=== PATIENT | female | born 1965 | race Caucasian/White ===

== ENCOUNTER 2016-12-10 16:30 | Emergency (ER) | payer OTHER ==
[2016-12-10] MEDS ORDERED: ALTEPLASE 2 MG VIAL IVP ONE (17:00)
[2016-12-10 17:58] LABS: ADD DIFF? YES; ADD MORPH? NO; ATYPICAL LYMPHOCYTE FLAG 0 (0-99); FRAGMENT RBC FLAG 0 (0-99); HEMATOCRIT 34.1 % (38.0-47.0); HEMOGLOBIN 11.1 g/dL (12.6-16.3); LEFT SHIFT FLG 10 (0-99); LIPEMIA HEMOLYSIS FLAG 80 (0-99); MEAN CELL HEMOGLOBIN 28.9 pg (27.9-34.1); MEAN CELL HEMOGLOBIN CONCENTR. 32.6 g/dL (32.4-36.7); MEAN CELL VOLUME 88.8 fL (81.5-99.8); MEAN PLATELET VOLUME 10.4 fL (8.7-11.7); PLATELET CLUMPS FLAG 10 (0-99); PLATELET COUNT 164 10^3/uL (150-400); RED BLOOD CELL COUNT 3.84 10^6/uL (4.18-5.33); RED CELL DISTRIBUTION WIDTH 18.8 % (11.5-15.2)
[2016-12-10] MEDS ORDERED: HYDROmorphONE/DILAUDID 1 MG/ML INJ ONE (18:07)
[2016-12-10 18:08] LABS: ADD SCAN? NO; ANION GAP 12 mEq/L (8-16); CALCIUM 8.4 mg/dL (8.5-10.4); CARBON DIOXIDE 24 mEq/l (22-31); CHLORIDE 100 mEq/L (97-110); CREATININE 0.7 mg/dL (0.6-1.0); GLOMERULAR FILTRATION RATE > 60; GLUCOSE 139 mg/dL (70-100); POTASSIUM 3.5 mEq/L (3.5-5.2); SODIUM 136 mEq/L (134-144)
[2016-12-10] MEDS ORDERED: IOPAMIDOL (ISOVUE 370) 100 ML BTL IV ONE (18:15)
[2016-12-10] MEDS ORDERED: NS 1,000 ML IV ONE (18:20)
[2016-12-10] MEDS ORDERED: HYDROmorphONE/DILAUDID 1 MG/ML INJ IVP ONE (18:20)
[2016-12-10 18:55] LABS: PLATELET ESTIMATE ADEQUATE (ADEQ)
--- NOTE | 2016-12-10 19:05 | EDPHY ---
H & P Smoking Status: Never smoked Time Seen by Provider: 12/10/16 16:30 HPI/ROS: CHIEF COMPLAINT: Abdominal pain HISTORY OF PRESENT ILLNESS: 51-year-old female with a history of lung cancer presents to the emergency department with left upper quadrant abdominal pain that began this morning. Patient had chemo 2 days ago. She denies feeling short of breath however she does note pleuritic chest pain in the left side of her chest and left upper abdomen with deep breathing. Denies neck or back pain. Denies any reported trauma. She has known lung cancer with metastasis to the pancreas and kidney. REVIEW OF SYSTEMS: Constitutional: No fever, no chills. Eyes: No double or blurry vision. ENT: No sore throat. Respiratory: No cough, no shortness of breath. Cardiac: No chest pain. Gastrointestinal: Abdominal pain as above. No vomiting or diarrhea Genitourinary: No dysuria. Musculoskeletal: No neck or back pain. Skin: No rashes. Neurological: No headache. (Vanessa Seymour) Past Medical/Surgical History: Small cell lung cancer diagnosed September of 2015 (Vanessa Seymour) Social History: and lives in [place] (Vanessa Seymour) Physical Exam: General Appearance: Alert, no distress. 91% on room air. Temp 37.2 Eyes: Pupils equal and round. Extraocular motions are all intact. ENT: Mouth: Mucous membranes moist. Respiratory: No wheezing, rhonchi, or rales, lungs are clear to auscultation. Port present in the right anterior aspect of the chest in apex. Cardiovascular: Regular rate and rhythm. Gastrointestinal: The abdomen is soft. She has tenderness with palpation in the left upper quadrant. Spleen feels enlarged. She also has some mild left anterior lower rib discomfort with palpation. Mild epigastric pain with palpation. No CVA tenderness bilaterally. Neurological: Alert and oriented x 3, cranial nerves II through XII grossly intact Skin: Warm and dry, no rashes. Musculoskeletal: Nontender to palpate along the cervical, thoracic or lumbar spine. Neck is supple. Extremities: Full range of motion and no peripheral edema. Psychiatric: Patient is oriented X 3, there is no agitation. (Vanessa Seymour) Constitutional: Initial Vital Signs Temperature (C) 37.2 C 12/10/16 16:35 Heart Rate 67 12/10/16 16:35 Respiratory Rate 18 12/10/16 16:35 Blood Pressure 141/101 H 12/10/16 16:35 O2 Sat (%) 91 L 12/10/16 16:35 O2 Delivery Mode Room Air O2 (L/minute) 2 Allergies/Adverse Reactions: Penicillins Allergy (Verified 12/07/15 17:30) Hives Sulfa (Sulfonamide Antibiotics) Allergy (Verified 12/07/15 17:30) Hives Home Medications: Medication Instructions Recorded Azithromycin [Zithromax] 250 mg PO DAILY #4 tab 02/01/15 Calcium Carbonate 1 tab PO BID 12/03/15 Dexamethasone 4 mg PO BID 12/03/15 Folic Acid 1 mg PO DAILY 12/03/15 Lorazepam 1 mg SL Q6HRS PRN 12/03/15 Multivitamin 1 tab PO DAILY 12/03/15 Ondansetron 4 mg SL Q8HRS PRN 12/03/15 Prochlorperazine Maleate 10 mg PO Q6HRS PRN 12/03/15 EPINEPHRINE [EPIPEN] 0.3 mg IM ONCE #2 syr 12/07/15 predniSONE 60 mg PO DAILY #9 tab 12/07/15 Medical Decision Making ED Course/Re-evaluation: 51-year-old female with a history of small cell lung cancer presents to the emergency department with left upper quadrant abdominal pain and pleuritic chest pain. I was concerned about possible pulmonary embolism as well as further evaluation of her left upper quadrant abdominal pain and palpated spleen on exam. CT pulmonary angiogram and CT scan of the abdomen and pelvis are pending. Laboratory studies reveal elevated white blood cell count of 32,000. (Vanessa Seymour) I assumed care primarily of this patient at 7:00 p.m.. We are waiting results of her CT scans. Please see note by physician community assistant Vanessa Garsia for further details. 8:50 p.m., patient re-evaluated. She is sitting upright on the gurney talking to her friend. She appears comfortable. I discussed results of CT scans as noted above and specifically the new findings which include probable metastasis to the kidneys as well as inflammatory changes to the duodenum and the pancreas. I discussed admission with her. She is not sure she wants to do this. She is going to talk this over with her friend. 9:15 p.m., patient re-evaluated. She appears comfortable. Urinalysis dip was negative for infection. She has been afebrile. I again discussed admission. The patient does not want to do this. She is asking to be discharged. She will follow up with her oncologist, Dr. Mckeon on Monday. She lives near the hospital. Explained she needed a very low threshold to return to our emergency department for any concerns especially worsening pain, fever, vomiting. She stated that she could easily return if needed. Her friend who is with her endorses this plan. I reviewed follow-up with her. All of her questions were answered. Results of all of her diagnostic tests were discussed. She was discharged in good condition with her friend. (Aaron Jacob) Differential Diagnosis: Including but not limited to metastatic carcinoma, pulmonary embolism, pulmonary infarction, sepsis, bowel obstruction (Vanessa Seymour) Care Turn Over: Care will be turned over to Dr. Aaron Jacob at 7:15 p.m. (Vanessa Seymour) - Data Points Laboratory Results: Laboratory Results 12/10/16 17:50 12/10/16 17:50 12/10/16 17:50 Smear Review By Darrian SHARMA MD Medications Given: Discontinued Medications Alteplase, Recombinant (Cathflo Activase) 2 mg IVP EDNOW ONE Stop: 12/10/16 17:01 Last Admin: 12/10/16 17:12 Dose: 2 mg Hydromorphone HCl (Dilaudid) 0.5 mg IVP EDNOW ONE Stop: 12/10/16 18:21 Last Admin: 12/10/16 18:21 Dose: 0.5 mg Sodium Chloride (Ns) 1,000 mls @ 0 mls/hr IV EDNOW ONE; TKO PRN Reason: Protocol Stop: 12/10/16 18:21 Last Admin: 12/10/16 18:21 Dose: 1,000 mls Departure - Departure Disposition: Home, Routine, Self-Care Clinical Impression: Leukocytosis, Pancreatitis, Duodenitis, Metastatic lung cancer (metastasis from lung to other site) Condition: Good Instructions: Pancreatitis (ED), Abdominal Pain (ED), Duodenitis (ED) Additional Instructions: Read and follow provided instructions. Follow-up with Dr. Mckeon, without fail on Monday for re-evaluation. They will have access to all of the tests that we did here. Continue taking your medication as prescribed. Return to the emergency department immediately as discussed for fever, worsening or uncontrolled pain, vomiting or other serious concerns. Referrals: Faby Mckeon MD [Medical Doctor] - As per Instructions
[2016-12-10 19:10] VITALS: RESP 16
[2016-12-10 19:14] LABS: ALBUMIN 3.2 g/dL (3.5-5.0); BILIRUBIN,TOTAL 0.6 mg/dL (0.1-1.4); BILIRUBIN-CONJUGATED 0.4 mg/dL (0.0-0.5); BILIRUBIN-UNCONJUGATED 0.2 mg/dL (0.0-1.1); TOTAL PROTEIN 5.8 g/dL (6.3-8.2)
[2016-12-10 21:24] VITALS: BP 111/74; PULSE 84; TEMP 98.6; O2SAT 92
== END 2016-12-10 21:40 | disposition home or self-care (01) ==
LOC: EDUNIT#
DX: K85.90 Acute pancreatitis without necrosis or infection, unspecified (principal); K29.80 Duodenitis without bleeding; C78.89 Secondary malignant neoplasm of other digestive organs; C79.00 Secondary malignant neoplasm of unspecified kidney and renal pelvis; C34.90 Malignant neoplasm of unspecified part of unspecified bronchus or lung
CPT/HCPCS: 82947-QW; 96374; J1170; J2997; Q9967

== ENCOUNTER 2016-12-14 08:32 | Inpatient (IN) | payer OTHER ==
[2016-12-14] MEDS ORDERED: NS 1,000 ML IV ONE (08:51)
--- NOTE | 2016-12-14 08:54 | EDPHY ---
HPI/HX/ROS/PE/MDM Narrative: CHIEF COMPLAINT: Blood in vomit HPI: The patient is a 51 y/o female with a history of metastatic lung cancer, who complains of blood in her vomit. She was seen in this ED on 12/10/16, 4 days ago, for abdominal and back pain as well as diarrhea, but refused admission. Her pain has decreased since that visit, but last night she developed severe vomiting, and vomited 7-8 times throughout the night. She noticed a brown coffee color in her vomit, but it was not the consistency of coffee grounds. Denies chest pain, dysuria, or other pertinent symptoms. Prior medical records reviewed including ED visit on 12/10/[address] Jacob. REVIEW OF SYSTEMS: Aside from elements discussed in the HPI, a comprehensive 10-point review of systems was reviewed and is negative. PMH: Metastatic small cell lung cancer diagnosed September 2015 SOCIAL HISTORY: Lives in [place] Friend at bedside PHYSICAL EXAM: General:Patient is alert, in no acute distress. She appears chronically ill. ENT:Eyes are normal to inspection. ENT inspection normal. Neck: Normal inspection. Full range of motion. Respiratory:No respiratory distress. Breath sounds normal bilaterally. Cardiovascular: Port in right chest. Mild tachycardia. Normal rhythm. Strong peripheral pulses. Normal cap refill. Abdomen: Diffuse abdominal tenderness. There are no peritoneal signs. There are normal bowel sounds. Back: Normal to inspection. No tenderness to palpation. Skin: Normal color. No rash. Warm and dry. Extremities: Normal appearance. Full range of motion. Neuro: Oriented x3. Normal motor function. Normal sensory function. Portions of this note were transcribed by an ED scribe. I personally performed the history, physical exam, and medical decision making; and confirm the accuracy of the information in the transcribed note. ED Course: The patient is a 51 y/o female who presents with diffuse abdominal tenderness and coffee-colored vomit. She has metastatic lung cancer with metastasis to her pancreas. She was seen her on 12/10/16 for abdomen and back pain, but refused admission. She is willing to be admitted today. 0916: Spoke with hospitalist service, Dr. Lees accepts admission of this patient. MDM: This patient presents with severe abdominal pain and vomiting, in the setting of recent ED visit/imaging which revealed inflammation of pancreas and bowel. The patient is at elevated risk secondary to CA and chemo, and I am particularly concerned about what sounds like possible upper GI bleed. She requires admission to the hospital for further testing and symptomatic treatment. I see no signs of hemorrhagic shock, bowel obstruction, ACS, cholecystitis. - Data Points Imaging Results: Imaging Impressions Abdomen X-Ray 12/14/16 08:51 Impression: Non-obstructive bowel gas pattern. Imaging: Discussed imaging studies w/ call center support representative Radiologist, I viewed and interpreted images myself Laboratory Results: Laboratory Results 12/14/16 09:00 12/14/16 09:00 12/14/16 12/14/16 12/14/16 09:00 09:00 09:00 WBC 7.62 10^3/uL 10^3/uL (3.80-9.50) RBC 3.56 10^6/uL L 10^6/uL (4.18-5.33) Hgb 10.2 g/dL L g/dL (12.6-16.3) Hct 31.2 % L % (38.0-47.0) MCV 87.6 fL fL (81.5-99.8) MCH 28.7 pg pg (27.9-34.1) MCHC 32.7 g/dL g/dL (32.4-36.7) RDW 18.6 % H % (11.5-15.2) Plt Count 272 10^3/uL 10^3/uL (150-400) MPV 10.8 fL fL (8.7-11.7) Neut % (Auto) 78.6 % H % (39.3-74.2) Lymph % (Auto) 6.4 % L % (15.0-45.0) Churchill % (Auto) 10.8 % % (4.5-13.0) Eos % (Auto) 2.1 % % (0.6-7.6) Baso % (Auto) 0.4 % % (0.3-1.7) Nucleat RBC Rel Count 1.4 % H % (0.0-0.2) Absolute Neuts (auto) 5.99 10^3/uL 10^3/uL (1.70-6.50) Absolute Lymphs (auto) 0.49 10^3/uL L 10^3/uL (1.00-3.00) Absolute Monos (auto) 0.82 10^3/uL H 10^3/uL (0.30-0.80) Absolute Eos (auto) 0.16 10^3/uL 10^3/uL (0.03-0.40) Absolute Basos (auto) 0.03 10^3/uL 10^3/uL (0.02-0.10) Absolute Nucleated RBC 0.11 10^3/uL H 10^3/uL (0-0.01) Immature Gran % 1.7 % H % (0.0-1.1) Immature Gran # 0.13 10^3/uL H 10^3/uL (0.00-0.10) RBC/WBC/PLT Morphology NORMAL (NORMAL) Toxic Granulation PRESENT H Platelet Estimate ADEQUATE (ADEQ) Large Platelets PRESENT H Smear Review By Pending PT 22.6 SEC H SEC (12.0-15.0) INR 1.98 H (0.83-1.16) APTT 55.3 SEC H SEC (23.0-38.0) Sodium 131 mEq/L L mEq/L (134-144) Potassium 3.5 mEq/L mEq/L (3.5-5.2) Chloride 95 mEq/L L mEq/L (97-110) Carbon Dioxide 26 mEq/l mEq/l (22-31) Anion Gap 10 mEq/L mEq/L (8-16) BUN 9 mg/dL mg/dL (7-23) Creatinine 0.9 mg/dL mg/dL (0.6-1.0) Estimated GFR > 60 Glucose 92 mg/dL mg/dL (70-100) Calcium 8.7 mg/dL mg/dL (8.5-10.4) Total Bilirubin 1.0 mg/dL mg/dL (0.1-1.4) Conjugated Bilirubin 0.4 mg/dL mg/dL (0.0-0.5) Unconjugated Bilirubin 0.6 mg/dL mg/dL (0.0-1.1) AST 87 IU/L H IU/L (14-46) ALT 30 IU/L IU/L (9-52) Alkaline Phosphatase 153 IU/L H IU/L (38-126) Total Protein 5.9 g/dL L g/dL (6.3-8.2) Albumin 3.0 g/dL L g/dL (3.5-5.0) Lipase 1272 IU/L H IU/L (23-300) Medications Given: Discontinued Medications Sodium Chloride (Ns) 1,000 mls @ 0 mls/hr IV EDNOW ONE; Wide Open PRN Reason: Protocol Stop: 12/14/16 08:52 Last Admin: 12/14/16 09:03 Dose: 1,000 mls Morphine Sulfate (Morphine) 2 mg IVP EDNOW ONE Stop: 12/14/16 09:05 Last Admin: 12/14/16 09:12 Dose: 2 mg General Initial Vital Signs: Initial Vital Signs Temperature (C) 36.9 C 12/14/16 08:33 Heart Rate 118 H 12/14/16 08:33 Respiratory Rate 16 12/14/16 08:33 Blood Pressure 117/88 H 12/14/16 08:33 O2 Sat (%) 95 12/14/16 08:33 O2 Delivery Mode Room Air Allergies/Adverse Reactions: Penicillins Allergy (Verified 12/07/15 17:30) Hives Sulfa (Sulfonamide Antibiotics) Allergy (Verified 12/07/15 17:30) Hives EBONY SEEDS Allergy (Uncoded 12/14/16 08:38) Home Medications: Medication Instructions Recorded Acetaminophen [Tylenol 325mg (*)] 325 mg PO DAILY PRN 12/14/16 Cholecalciferol Vit D3 [Vitamin D3 1,000 units PO DAILY 12/14/16 (*)] Cyclobenzaprine [Flexeril 10 MG 10 mg PO TID PRN 12/14/16 (*)] Herbals/Supplements -Info Only 1 ea PO DAILY 12/14/16 Potassium Chloride [Klor-Con] 20 meq PO BID 12/14/16 oxyCODONE IR [Oxycodone Ir (*)] 5 mg PO Q6HRS PRN 12/14/16 Departure - Departure Disposition: [facility] Clinical Impression: Abdominal pain Qualifiers: Abdominal location: generalized Qualified Code(s): R10.84 - Generalized abdominal pain Vomiting Qualifiers: Vomiting type: unspecified Vomiting Intractability: non-intractable Nausea presence: unspecified Qualified Code(s): R11.10 - Vomiting, unspecified Metastatic lung cancer (metastasis from lung to other site) Qualifiers: Laterality: unspecified laterality Qualified Code(s): C34.90 - Malignant neoplasm of unspecified part of unspecified bronchus or lung Condition: Fair Report Scribed for: Lambert Clay Report Scribed by: Rafia Harkins Date of Report: 12/14/16 Time of Report: 08:51
[2016-12-14 09:07] LABS: % IMMATURE GRANULYOCYTES 1.7 % (0.0-1.1); ABSOLUTE IMMATURE GRANULOCYTES 0.13 10^3/uL (0.00-0.10); ABSOLUTE NRBC COUNT 0.11 10^3/uL (0-0.01); ADD DIFF? NO; ADD MORPH? YES; ADD SCAN? YES; ATYPICAL LYMPHOCYTE FLAG 0 (0-99); FRAGMENT RBC FLAG 20 (0-99); HEMATOCRIT 31.2 % (38.0-47.0); HEMOGLOBIN 10.2 g/dL (12.6-16.3); LIPEMIA HEMOLYSIS FLAG 80 (0-99); MEAN CELL HEMOGLOBIN 28.7 pg (27.9-34.1); MEAN CELL HEMOGLOBIN CONCENTR. 32.7 g/dL (32.4-36.7); MEAN CELL VOLUME 87.6 fL (81.5-99.8); MEAN PLATELET VOLUME 10.8 fL (8.7-11.7); PLATELET CLUMPS FLAG 10 (0-99); PLATELET COUNT 272 10^3/uL (150-400); RED BLOOD CELL COUNT 3.56 10^6/uL (4.18-5.33); RED CELL DISTRIBUTION WIDTH 18.6 % (11.5-15.2)
[2016-12-14 09:12] LABS: LEFT SHIFT FLG 300 (0-99); NRBC-AUTO% 1.4 % (0.0-0.2)
[2016-12-14 09:17] LABS: INR 1.98 (0.83-1.16); PROTIME(PATIENT) 22.6 SEC (12.0-15.0)
[2016-12-14 09:18] LABS: APTT 55.3 SEC (23.0-38.0)
[2016-12-14 09:28] LABS: ALANINE AMINOTRANSFERASE 30 IU/L (9-52); ALKALINE PHOSPHATASE 153 IU/L (38-126); ANION GAP 10 mEq/L (8-16); ASPARTATE AMINOTRANSFERASE 87 IU/L (14-46); BILIRUBIN-CONJUGATED 0.4 mg/dL (0.0-0.5); BILIRUBIN-UNCONJUGATED 0.6 mg/dL (0.0-1.1); CALCIUM 8.7 mg/dL (8.5-10.4); CARBON DIOXIDE 26 mEq/l (22-31); CHLORIDE 95 mEq/L (97-110); CREATININE 0.9 mg/dL (0.6-1.0); GLOMERULAR FILTRATION RATE > 60; GLUCOSE 92 mg/dL (70-100); POTASSIUM 3.5 mEq/L (3.5-5.2); SODIUM 131 mEq/L (134-144); TOTAL PROTEIN 5.9 g/dL (6.3-8.2)
[2016-12-14 09:42] LABS: SCAN NEGATIVE
[2016-12-14 09:45] LABS: PLATELET ESTIMATE ADEQUATE (ADEQ)
[2016-12-14 09:47] LABS: LARGE PLATELETS PRESENT
[2016-12-14 09:48] LABS: TOXIC GRANULATION PRESENT
[2016-12-14] MEDS ORDERED: CYCLOBENZAPRINE 10 MG TAB PO PRN (13:14)
[2016-12-14] MEDS ORDERED: ZOLPIDEM TARTRATE 5 MG TAB PO PRN (13:39)
[2016-12-14] MEDS ORDERED: PHYTONADIONE 10 MG in NS 50 ML IV ONE (13:49)
[2016-12-14] MEDS ORDERED: PHYTONADIONE 2.5 MG/2.5 ML ORAL UDL PO ONE ×2 (13:50→16:45)
[2016-12-14] MEDS: D5W 1/2 NS W/ 20 KCl/L 1,000 ML IV SCH (13:54)
[2016-12-14] MEDS ORDERED: PROPOFOL/EMULSION 500 MG/50 ML BOTTLE IV ONE (14:34)
[2016-12-14] MEDS ORDERED: LIDOCAINE 2% 5 ML SDV ONE (14:34)
--- NOTE | 2016-12-14 14:42 | GHP ---
[f rep st] HISTORY AND PHYSICAL DATE OF ADMISSION: 12/14/2016 CHIEF COMPLAINT: Nausea, vomiting with blood. HISTORY OF PRESENT ILLNESS: This is a 51-year-old female, diagnosed with lung cancer in May, started on treatment in June of 2015, and is followed by Dr. Mckeon as well as a lung cancer speci joannest at the [facility]. Presents to the hospital today with 6-7 episodes of bloody emesis that bega n last night. She states that she was initially passing what she describes as "red clumps" of clots that then progressed to black colored coffee-ground vomitus. She denies any NSAID use. This has nev er happened to her before. She has had really no appetite for the past few weeks. She has been eati ng very little. She denies any bloody stools or melena. The patient was seen in the emergency department on 12/10/2016, with abdominal pain that was radiatin g to her back. She was offered admission then but refused. She went home and took oxycodone and Fle xeril which initially seemed to help although they made her feel a little loopy. She felt better on Monday with decreased pain. On Monday, she had some bloating and tried milk of magnesia which caus ed some diarrhea. She has not had any bowel movements since using the laxatives. PAST MEDICAL HISTORY: Metastatic lung cancer diagnosed in May 2015 with metastases to the pancr eas and kidney. PAST SURGICAL HISTORY: Denies. MEDICATIONS: Refer to medication list in [facility]. ALLERGIES: No known drug allergies. SOCIAL HISTORY: She lives in [place], is single. She denies any alcohol, tobacco, or illicit drug use. FAMILY HISTORY: Significant for heart attack in her mom's side as well as inflammatory bowel disease . REVIEW OF SYSTEMS: Comprehensive 10-point review of systems was done and is negative, except for as mentioned in the HPI. PHYSICAL EXAMINATION: VITAL SIGNS: Blood pressure 126/103, pulse of 105, respiratory rate 16, O2 sa turation 98% on 2.5 L, temperature afebrile. GENERAL: No acute distress. HEAD: Normocephalic, atr aumatic. EYES: PERRLA. Sclerae anicteric. MOUTH: Moist mucous membranes. NECK: Supple. No lym phadenopathy. CARDIOVASCULAR: S1, S2, no JVD. No lower extremity edema. Tachycardic. LUNGS: Kirill ar to auscultation and percussion bilaterally. No wheezes, rales, or rhonchi. ABDOMEN: Soft. She does have some tenderness in the left upper quadrant. There is no guarding or rebound tenderness. N ormoactive bowel sounds. EXTREMITIES: No clubbing or cyanosis. NEURO: Cranial nerves 2-12 grossly intact. No focal motor or sensory deficits. SKIN: Clear, no rashes. DIAGNOSTICS: CT of the abdomen was reviewed that was done on 12/10/2016, that showed interval change s with haziness around the pancreatic tail as well as the 3rd and 4th portions of the duodenum is pos sible, small fluid collection in the 3rd portion the duodenum, renal metastatic lesions, stable confl uent masses within the liver predominantly in the right lobe with distal small bowel fluid-filled loo ps probably from ileus or enteritis. WBC 7.6, hemoglobin 10.2, hematocrit 31.2, platelets 272. INR 1.98. Sodium 131, potassium 3.5, chlo ride 95, CO2 of 26, BUN 9, creatinine 0.9, glucose 92, lipase was elevated at 1272, AST 87, ALT 30. ASSESSMENT/PLAN: This is a 51-year-old female undergoing chemotherapy for metastatic lung cancer. L ast treatment was 2 weeks ago. Presents with: 1. Nausea, vomiting with reported hematemesis and coffee-grounds emesis. Suspect underlying gastrit is since she has not been eating versus further worsening of her metastatic disease with erosion of t umor into her upper gastrointestinal tract. Plan: Currently, the patient is hemodynamically stable and not anemic. I did discuss the patient with Dr. Coker who will see the patient in consultation. We will start b.i.d. IV Protonix. 2. Coagulopathy likely due to underlying liver disease with liver metastases and possible vitamin K deficiency given her poor diet. Plan: Will supplement with vitamin K and monitor INR. 3. Pancreatic metastases with possible underlying chronic pancreatitis. Plan: Will treat champ millan for now. Currently, she is pain free. 4. Metastatic lung cancer. Plan: Dr. Mckeon, her oncologist, will be consulted. The patient requests to be full code status. /[id number]/MODL
[2016-12-14] MEDS ORDERED: MIDAZOLAM 2 MG/2 ML VIAL ONE (14:47)
[2016-12-14] MEDS ORDERED: ALBUTEROL 3 ML DEYVIAL IH PRN (14:59)
[2016-12-14] MEDS ORDERED: fentaNYL 100 MCG/2 ML INJ IVP PRN (14:59)
[2016-12-14] MEDS ORDERED: LR 500 ML IV PRN (14:59)
[2016-12-14] MEDS ORDERED: ACETAMINOPHEN 500 MG TAB PO PRN (14:59)
[2016-12-14] MEDS ORDERED: NALOXONE HCL 0.4 MG/ML INJ IVP PRN (14:59)
[2016-12-14] MEDS ORDERED: ONDANSETRON 4 MG/2 ML VIAL IVP PRN (14:59)
[2016-12-14] MEDS ORDERED: OXYCODONE/APAP 5/325 TAB PO PRN (14:59)
--- NOTE | 2016-12-14 15:15 | GIREPORT ---
[facility] Surgical Services - Endoscopy Department Patient Name: Adriana Anderson Procedure Date: 12/14/2016 2:27 PM Patient Type: Inpatient Attending / ER Physician: Perico Coker MD Procedure: Upper GI endoscopy Indications: Coffee-ground emesis, Hematemesis, Nausea with vomiting Providers: Perico Coker MD Medicines: Propofol per Anesthesia Complications: No immediate complications. Findings: The examined esophagus was normal. A small non-bleeding Lorie-Olsen tear was found @ [facility] One non-bleeding superficial gastric ulcer with no stigmata of bleeding was found on the greater curvature of the gastric antrum. The lesion was 9 mm in largest dimension. Biopsies were taken with a cold forceps for histology. The entire examined stomach was normal. Biopsies were taken with a cold forceps for histology and Helicobacter pylori testing. The duodenal bulb was normal. A mild extrinsic deformity was found in the second portion of the duodenum. (edema, ? narrowing) Estimated Blood Loss: Estimated blood loss: none. Post Op Diagnosis: - Normal esophagus. - Lorie-Olsen tear. - Non-bleeding gastric ulcer with no stigmata of bleeding. Biopsied. - Normal stomach. Biopsied. - Normal duodenal bulb. - Duodenal deformity. (edema, ? narrowing) Recommendation: - Await pathology results. - Clear liquid diet and can advance as tolerated. - Follow clinically and advance diet. CT report of tumor involment of the pancreatic tail with ? compression of duodenum. If still symptomatic after starting back on diet recommend SBFT. - Use Protonix (pantoprazole) 40 mg PO BID. - Thank you for allowing me to participate in the care of your patient. Attending Participation: I personally performed the entire procedure. Perico Coker MD Perico Coker MD 12/14/2016 3:15:24 PM Number of Addenda: 0 Note Initiated On: 12/14/2016 2:27 PM Total Procedure Duration Time 0 hours 6 minutes 25 seconds [email or web address]
--- NOTE | 2016-12-14 15:32 | GCON ---
[f rep st] CONSULTATION CONSULTATIVE NOTE REFERRING PHYSICIAN: Dr. Lees CHIEF COMPLAINT: Hematemesis. REASON FOR CONSULTATION: I have been asked to see this 51-year-old patient in consultation by Dr. Lees for hematemesis. HISTORY OF PRESENT ILLNESS: This 51-year-old woman has a history of metastatic lung cancer, who had finished a course of chemo about a week and a half ago. This past weekend, she was feeling unwell, had several episodes of vomiting. She vomited coffee-ground material and blood. She has had episodes of epistaxis with chemo in the past. She was hemodynamically stable with a normal hematocrit. She denies any passage of blood per rectum or black or tarry stool. She has no prior history of ulcer disease. She has had no history of NSAID use. I was asked to see the patient for further evaluation. PAST MEDICAL HISTORY: Remarkable for metastatic small cell lung cancer diagnosed in 2016. MEDICATIONS: Acetaminophen, vitamin D, Flexeril, Zofran, pantoprazole, potassium chloride, Phenergan, and Ambien. ALLERGIES: Penicillin and sulfa. FAMILY HISTORY: Negative as it pertains to the chief complaint. SOCIAL HISTORY: She is , lives in [place]. REVIEW OF SYSTEMS: Negative for 10 systems other than mentioned in HPI. PHYSICAL EXAM: VITAL SIGNS: 126/103, pulse 105, respiratory rate 16, 98% sat on 2.5 L nasal cannula, 36.9. Very pleasant woman in no acute distress. HEENT : Normocephalic, atraumatic. EOMI. NECK: Supple. No cervical adenopathy. No thyromegaly. Mucous membranes moist. LUNGS: Clear. CARDIAC: Normal S1, S2 without murmur. CHEST: There is a port in the right upper chest. ABDOMEN: No hepatosplenomegaly, nontender. Normal bowel sounds. EXTREMITIES: Without clubbing, cyanosis, edema. NEURO: Nonfocal. SKIN: Warm and dry. PSYCH: Alert and oriented x3 with normal affect. LABORATORY DATA: Hemoglobin of 10.2 with hematocrit 31.2. This is down from November when her hematocrit was 39.3. Platelets were 272,000. PT of 22.6, INR 1.98. Serum chemistry: Serum sodium 131, potassium 3.5, CO2 26, BUN of 9, creatinine 0.9. Abdominal x-ray: Normal gas pattern. Chest CT with stable lobulated mass in the superior segment of the right lower lobe and right hilar mass. Mass causes some narrowing of the right pulmonary artery segments and surrounds the right mainstem bronchus extending into the mediastinum. Stable bilateral small pulmonary nodules. Mild progression of a heterogeneous lytic lesion posterior 3rd left 3rd rib. No evidence of pulmonary embolus. Abdominal CT shows haziness in the pancreatic tail and to the mesentery, as well as the 3rd and 4th portions of the duodenum. Small fluid collection adjacent to the 3rd portion of the duodenum, increase in prominence in renal metastatic lesions. Stable large confluent masses within the liver predominantly involving the right lobe. Fluid-filled loops of distal small bowel and the pelvis with mild distention possibly from ileus or enteritis. IMPRESSION: A 51-year-old woman with metastatic small-cell carcinoma of the lung. The patient had chemotherapy Monday of last week. She developed some body aches and nausea, vomiting from chemotherapy. She had several episodes of retching with some hematemesis. Differential includes gastritis, Lorie-Olsen tear, most likely peptic ulcer disease. Patient also has had episodes of epistaxis and may have swallowed blood with associated emesis. RECOMMENDATIONS: 1. IV fluids, IV Protonix 40 mg q.12. 2. Proceed with diagnostic endoscopy. We will follow with you. /[id number]/MODL MTDD
--- NOTE | 2016-12-14 15:58 | POSTANESTH ---
Post Anesthetic Evaluation Cardiovascular Status: Normal, Stable Respiratory Status: Normal, Stable Level of Consciousness/Mental Status: Can Participate in Eval Pain Control: Adequate, Prn Tx Ordered Nausea/Vomiting Control: Adequate, Prn Tx Ordered Complications Possibly Related to Anesthesia: None Noted
--- NOTE | 2016-12-14 15:58 | PDANEPAE ---
ANE History of Present Illness vomiting blood ANE Past Medical History - Cardiovascular History Hx Hypertension: No Hx Arrhythmias: No Hx Chest Pain: No Hx Coronary Artery / Peripheral Vascular Disease: No Hx CHF / Valvular Disease: No Hx Palpitations: No - Pulmonary History Hx COPD: No Hx Asthma/Reactive Airway Disease: Yes Hx Recent Upper Respiratory Infection: No Hx Oxygen in Use at Home: No Hx Sleep Apnea: No Pulmonary History Comment: Stage IV lung cancer - Neurologic History Hx Cerebrovascular Accident: No Hx Seizures: No Hx Dementia: No - Endocrine History Hx Diabetes: No - Renal History Hx Renal Disorders: No - Liver History Hx Hepatic Disorders: Yes Hepatic History Comment: Liver metastases - Neurological & Psychiatric Hx Hx Neurological and Psychiatric Disorders: Yes Neurological / Psychiatric History Comment: Brain metastases - Cancer History Hx Cancer: Yes Cancer History Comment: Stage IV non-small cell lung cancer - Congenital Disorder History Hx Congenital Disorders: No - GI History Hx Gastrointestinal Disorders: No - Other Health History Other Health History: none - Chronic Pain History Chronic Pain: No - Surgical History Prior Surgeries: Lung biopsy, liver biopsy 06/16 ANE Review of Systems Review of systems is: negative Review of Systems: ANE Patient History - Allergies Allergies/Adverse Reactions: Penicillins Allergy (Verified 12/07/15 17:30) Hives Sulfa (Sulfonamide Antibiotics) Allergy (Verified 12/07/15 17:30) Hives EBONY SEEDS Allergy (Uncoded 12/14/16 08:38) - Home Medications Home medications: home medication list seen and reviewed Home Medications: Acetaminophen [Tylenol 325mg (*)] 325 mg PO DAILY PRN 12/14/16 [Last Taken Unknown] Cholecalciferol Vit D3 [Vitamin D3 (*)] 1,000 units PO DAILY 12/14/16 [Last Taken Unknown] Cyclobenzaprine [Flexeril 10 MG (*)] 10 mg PO TID PRN 12/14/16 [Last Taken 12/12 09:00] Herbals/Supplements -Info Only 1 ea PO DAILY 12/14/16 [Last Taken Unknown] Potassium Chloride [Klor-Con] 20 meq PO BID 12/14/16 [Last Taken 12/11/16 09:00] oxyCODONE IR [Oxycodone Ir (*)] 5 mg PO Q6HRS PRN 12/14/16 [Last Taken 12/12/16 09:00] - Smoking Hx Smoking Status: Never smoked - Family Anes Hx Family Hx Anesthesia Complications: None ANE Labs/Vital Signs - Labs Result Diagrams: 12/14/16 09:00 12/14/16 09:00 - Vital Signs Blood Pressure: 134/94 Heart Rate: 105 Respiratory Rate: 27 O2 Sat (%): 99 Height: 162.56 cm Weight: 64.6 kg ANE Physical Exam - Airway Neck exam: FROM Mallampati Score: Class 2 Mouth exam: normal dental/mouth exam - Pulmonary Pulmonary: no respiratory distress - Cardiovascular Cardiovascular: regular rate and rhythym ANE Anesthesia Plan Anesthesia Plan: GA with mask Urgent/Emergent Case: Phillip doherty completed preop but documented later for safe timely pt care
--- NOTE | 2016-12-14 16:15 | ASMTCMCOM ---
CM Note CM Note Notes: Pt has been admitted with vomitiing. She was seen in the ED 12/10 for similar sx. Hx metstatic small cell lung CA diagnosed 09/2015 and completed a round of chemo 1 1/2 weeks ago. S/p EGD. CM will follow for any d/c needs. Date Signed: 12/14/2016 04:14 PM Electronically Signed By:GUERRERO Kramer
[2016-12-14] MEDS: PANTOPRAZOLE SODIUM 40 MG in NS 100 ML IV SCH ×2 (16:23→21:07)
[2016-12-14] MEDS ORDERED: GADOBUTROL 10 ML VIAL IVP ONE (17:13)
[2016-12-14] MEDS: ACETAMINOPHEN 325 MG TAB PO PRN (21:07)
[2016-12-14] MEDS: POTASSIUM CL 20 MEQ PKT PO SCH (21:07)
--- NOTE | 2016-12-15 02:58 | GCON ---
[f rep st] CONSULTATION ONCOLOGY INITIAL VISIT DATE OF CONSULTATION: 12/14/2016 REASON FOR CONSULTATION: Evaluation and management of metastatic lung cancer, and I am the primary o ncologist. HISTORY OF PRESENT ILLNESS: The patient is a 51-year-old woman diagnosed in June 2015 with a stage IV non-small cell lung cancer. She was both EGFR and alk negative. She presented with metastasis to the lung, liver, and brain. She started on cisplatin pemetrexed with a partial response, then was o n maintenance pemetrexed through January 2016. She started to progress so she underwent whole-brain radiation in February 2016, and then decided to go to the [facility] to enter into a stud y. There she started on nivolumab in April 2016, and based on this study she had an adequate respo nse, ipilimumab was to be added. This was added in May and she was on both treatments through . She has showed signs of progression, so came off the study and had 1 dose of Phosplatin but stop ped due to pancreatitis. She was referred back for more standard therapy. Her brain MRI showed a go od response to the radiation, so I started her on docetaxel plus ramucirumab in September 2016. After the 1st 2 cycles restaging study showed stable to slight improvement. She received her 4th cycle of carlos motherapy on December 08. She has also had Neulasta support and the docetaxel dose was decreased. A t the time of the last treatment, she was having fatigue and some muscle aches and pains. She was us ing Tylenol and ibuprofen as needed for relief. Her appetite was decreased and mouth was sore, but s he did not have any fever or chills. She was also not having any nausea or vomiting. Currently, the patient is both undergoing an upper endoscopy and currently in recovery from this proc edure. Therefore information was provided by close friends, and also spoke to her sister on the phon e, all of which have accompanied the patient with her in the office and well known to me. They repor t that she has been having increasing problems with abdominal cramping and nausea. States that reall y has not eaten much over the last week. She was in the emergency room on December 10 complaining of shortness of breath and chest pain with deep breathing. CT angiogram was performed, but no evidence of blood clot. White blood count was elevated, but probably due to the growth factor. CT of her ab rick was performed that showed that the pancreatitis but no other new changes. She seemed to improv e with hydration and pain control, and she asked to be sent home. Her friends report that still was not eating after that visit, and then last night began to have uncontrolled vomiting and abdominal pa in that radiated to her back. Her last bowel movement was Monday when she had some loose stools af ter taking some Milk of Magnesia. She has not had any bowel movements since then. In addition to th is, her friends report that she has had some increased visual, she saw fairies this morning, and rico tory, hearing people's voices who were not there, hallucinations. She has also been very unsteady on her feet, and her mood has been much more labile. ALLERGIES: She has no known drug allergies. HOME MEDICATIONS: Include Flexeril, low-dose. She was on dexamethasone around the time chemo. Onda nsetron and prochlorperazine as needed, calcium, potassium, and Tylenol. Chemotherapy, she has been receiving the docetaxel and Cyramza as per HPI. PAST MEDICAL HISTORY: Chronic illnesses: Particularly the metastatic lung cancer as described in in the HPI. PAST SURGICAL HISTORY: Unremarkable. FAMILY HISTORY: Her mother is alive with history of coronary artery disease. Father is alive, reaso nably good health. They are both in their mid to late 70s. She had a maternal aunt diagnosed with b reast cancer. She has 1 sister and 1 brother with no history of cancer. Her daughter, Sarina, is 13 years old and a [employer] high student in good health. SOCIAL HISTORY: I think she is actually , and no final divorce, but her had been un dergoing alcohol treatment. She denies any alcohol or drug abuse, although she had used marijuana in the past. She did not smoke. REVIEW OF SYSTEMS: Was obtained from the friends and family. A 10-point review of systems was perfo rmed. Pertinent positives per HPI, otherwise negative. PHYSICAL EXAMINATION: Her vitals on arrival, temperature is 36.9, pulse 118, blood pressure is 117/8 8. Her current vitals at about 4 o'clock, temp is 37.3, pulse 105, blood pressure 134/94. The rest of her physical exam unable to obtain because she is undergoing a procedure. IMAGING: Plain x-ray of her abdomen showed nonspecific bowel gas pattern. Her last brain MRI was in September that showed significant decrease in multiple foci of contrast enhancem ent. Her last CT angiogram of her chest was on the , showed no clots, the lobulated mass superior segme nt of right lower lobe contingent to the right hilar mass is causing some right pulmonary artery narr owing and surrounds the right mainstem, but this was relatively stable. There was mild progression o f a lytic lesion in the left 3rd rib. The CT of her abdomen showed a large confluent mass in her liver measuring 11.4 x 6.6 cm, was similar to the previous study. There are other lesions but they were stable. Spleen was unchanged. Pancre as showed no mass, but there is haziness in the pancreatic tail that extends over to the duodenum, po ssible pancreatitis with associated duodenitis. There is no evidence of abscess. Kidneys show hypod ense areas which were seen before, suspicious for renal metastasis. They seem to be a little bit mor e prominent than previous study. LABORATORIES: INR was elevated at about 2. Hemoglobin is 10.2 g/dL, white count and platelet count are normal. Sodium is 131. Her other chemistries were normal including creatinine 0.9. Alkaline ph osphatase is 153, which is stable for her over the last 3 months. AST and ALT were 87 and 30, both o f which are about the same. Her lipase is elevated at 1272, but this is actually stable to even impr mylene over the last month. IMPRESSION: 1. Uncontrolled nausea and vomiting with hematemesis reported. 2. Mental status changes and disequilibrium. 3. Stable chronic pancreatitis. 4. Widespread metastatic non-small cell lung cancer, which is currently stable on the current chemot herapy regimen. PLAN: There are 2 or 3 possibilities for her nausea and vomiting. One is that it is related to the pancreatitis. Labs have not changed much, and clinically she has not had problems with nausea and vo miting, but it has possibly expanded or progressed. It is also possible the recent chemotherapy exac erbated it, although she had gone through the first 3 cycles without too much problem related to this . The other possibility is if she has an ulcer or something going on in her stomach such as a blocka ge. Hopefully we will find out about this soon. Because the amount of blood she vomited was relativ yana small, and hopeful that mostly indicates a Lorie-Olsen tear. Finally, she might have new or pr ogressive disease in her brain, although the last was several MRIs have shown stable or even improved disease. I have recommended we get a repeat MRI here in the hospital. The bigger picture question is what to do going forward. I think we should probably stop further carlos motherapy, as the tumors are not regressing and she is having increasing problems tolerating the chem otherapy. We will also get an MRI as ramucirumab can have an increased risk of bleeding. Any other treatment is very unlikely to work but something such as gemcitabine could be considered. She would have to be in much better shape to consider any study again. The final thing we talked about if she improves is to retest through a blood test some of the markers that have been tested before, includin g EGF, ALK, ROS1, and BRAF to see if she might benefit from a targeted therapy. I will let her recov er. She will be hydrated, and I will get her set up for an MRI tonight, and will proceed based on th ose findings. I spoke to her friend and her sister at length about my general plan, and they were in agreement. She lives alone with her daughter here. Her father is on the way will be here Monday to help out. /[id number]/MODL
--- NOTE | 2016-12-15 05:12 | HOSPPROG ---
Hospitalist Progress Note Assessment/Plan: Cross cover: Called by RN after patient found in floor of bathroom. Patient remembers having a lucid dream and then waking up on the floor of her room. She feels like she was still dreaming even after she woke up. She then was able to reach a call light and call for help. She hit her left alevism on the floor and removed the buff cap from her port leading to some blood loss. Aside from some mild discomfort over her left alevism, patient was asymptomatic at the time of my evaluation. She was alert, oriented, and with an intact neurologic exam. Will follow up morning labs but for now it seems this was an episode of parasomnia, which patient says she has experienced before. Objective: Vital Signs Temp Pulse Resp BP Pulse Ox 36.8 C 107 H 18 129/88 H 97 12/15/16 00:02 12/15/16 00:02 12/15/16 00:02 12/15/16 00:02 12/15/16 00:02 12/13/16 12/14/16 12/15/16 05:59 05:59 05:59 Intake Total 1350 Output Total 5 Balance 1345 PT 22.6 SEC (12.0-15.0) H 12/14/16 09:00 INR 1.98 (0.83-1.16) H 12/14/16 09:00 ICD10 Worksheet Patient Problems: Problems Problem Status Onset Abdominal pain Acute Metastatic lung cancer (metastasis from lung to other site) Acute Vomiting Acute
[2016-12-15 05:32] LABS: INR 1.8 (0.83-1.16)
[2016-12-15 05:50] LABS: ABSOLUTE NRBC COUNT 0.28 10^3/uL (0-0.01); ADD DIFF? YES; ADD MORPH? YES; ATYPICAL LYMPHOCYTE FLAG 0 (0-99); FRAGMENT RBC FLAG 20 (0-99); HEMATOCRIT 30.5 % (38.0-47.0); LIPEMIA HEMOLYSIS FLAG 80 (0-99); MEAN CELL HEMOGLOBIN 28.7 pg (27.9-34.1); MEAN CELL HEMOGLOBIN CONCENTR. 32.8 g/dL (32.4-36.7); MEAN CELL VOLUME 87.6 fL (81.5-99.8); MEAN PLATELET VOLUME 10.8 fL (8.7-11.7); PLATELET CLUMPS FLAG 0 (0-99); PLATELET COUNT 296 10^3/uL (150-400); RED BLOOD CELL COUNT 3.48 10^6/uL (4.18-5.33)
[2016-12-15 05:52] LABS: ADD SCAN? NO; LEFT SHIFT FLG 300 (0-99); NRBC-AUTO% 2.6 % (0.0-0.2)
[2016-12-15 05:56] LABS: ALANINE AMINOTRANSFERASE 28 IU/L (9-52); ALKALINE PHOSPHATASE 138 IU/L (38-126); AMYLASE 434 IU/L (30-110); ANION GAP 13 mEq/L (8-16); ASPARTATE AMINOTRANSFERASE 86 IU/L (14-46); BILIRUBIN,TOTAL 0.8 mg/dL (0.1-1.4); BILIRUBIN-CONJUGATED 0.5 mg/dL (0.0-0.5); BILIRUBIN-UNCONJUGATED 0.3 mg/dL (0.0-1.1); CALCIUM 8.3 mg/dL (8.5-10.4); CARBON DIOXIDE 22 mEq/l (22-31); CHLORIDE 100 mEq/L (97-110); CREATININE 0.9 mg/dL (0.6-1.0); GLOMERULAR FILTRATION RATE > 60; GLUCOSE 104 mg/dL (70-100); POTASSIUM 3.7 mEq/L (3.5-5.2); SODIUM 135 mEq/L (134-144); TOTAL PROTEIN 5.6 g/dL (6.3-8.2)
[2016-12-15 07:57] LABS: LARGE PLATELETS PRESENT; MACROCYTES 1+; MICROCYTES 1+; PLATELET ESTIMATE ADEQUATE (ADEQ); POLYCHROMASIA 1+; TOXIC GRANULATION PRESENT
--- NOTE | 2016-12-15 08:51 | HOSPPROG ---
Hospitalist Progress Note Assessment/Plan: Nausea / Vomiting with small amount of hematemesis (resolved) - EGD showed carloz manuel tear, non-bleeding gastric ulcer, and duodenal deformity (?edema vs narrowing). Consider if this represents compression of duodenum from pancreatic tail tumor. -Cont BID PPI (change to po), IVF's, supportive care -If symptoms recur, will pursue SBFT -advance to full liquid diet -add stool softener/senna Chronic pancreatitis secondary to metastatic dz - may be contributing to above. -Will d/w GI if Creon is indicated. Lung cancer with extensive metastatic disease to kidneys, liver, pancreas - brain MRI w/o evidence of mets. Oncology following, discussing treatment options. Coagulopathy 2/2 liver mets - s/p Vit K, will defer further doses given risk for thromboembolic dz Parasomnia - awoke on bathroom floor after lucid dreaming event. -avoid sleep meds / [employer] sedating meds which may contribute to confusion Full code DVT PPLX - pharm deferred given hematemesis, SCD's, ambulation Dispo - cont inpt, RN to arrange for visit from cancer navigator, will request CM / SW consult, pt needs more support services Subjective: Pt is tearful, scared, worried this is "the beginning of the end". She has done well over past 15 months without hospitalizations, but now having more problems, feels chemo is killing her. No more N/V. No BM for >2 days, feels constipated. Cough is chronic, no F/C, CP or SOB. Objective: Vital Signs Temp Pulse Resp BP Pulse Ox 36.6 C 110 H 15 130/86 H 98 12/15/16 07:39 12/15/16 07:39 12/15/16 07:39 12/15/16 07:39 12/15/16 07:39 Laboratory Results 12/15/16 05:00 12/15/16 05:00 12/14/16 12/15/16 12/16/16 05:59 05:59 05:59 Intake Total 1700 1700 Output Total 5 100 Balance 1695 1600 PT 21.0 SEC (12.0-15.0) H 12/15/16 05:00 INR 1.80 (0.83-1.16) H 12/15/16 05:00 - Physical Exam Constitutional: chronically ill appearing Eyes: PERRL Ears, Nose, Mouth, Throat: moist mucous membranes Cardiovascular: tachycardia Respiratory: no respiratory distress, clear to auscultation Gastrointestinal: other (soft, nd, +TTP epigastrium with some guarding, no rigidity or peritoneal signs) Skin: warm Musculoskeletal: full muscle strength Neurologic: AAOx3 Psychiatric: interacting appropriately ICD10 Worksheet Patient Problems: Problems Problem Status Onset Abdominal pain Acute Metastatic lung cancer (metastasis from lung to other site) Acute Vomiting Acute
[2016-12-15] MEDS ORDERED: ONDANSETRON DISINTEGRATING 4 MG TAB PO PRN (09:35)
[2016-12-15] MEDS ORDERED: PROMETHAZINE HCL 25 MG TAB PO PRN (09:35)
[2016-12-15] MEDS: PANTOPRAZOLE SODIUM 40 MG TAB PO SCH ×2 (10:23→21:05)
[2016-12-15] MEDS: CHOLECALCIFEROL VIT D3 1,000 UNITS TAB PO SCH (10:23)
[2016-12-15] MEDS: SENNOSIDES/DOCUSATE SODIUM TAB PO SCH ×2 (10:23→20:40)
[2016-12-15] MEDS: POTASSIUM CL 20 MEQ PKT PO SCH ×2 (10:23→20:40)
--- NOTE | 2016-12-15 11:20 | SOAPPROG ---
SOAP Progress Note Assessment/Plan: Assessment: Metastatic Small Cell CA (from Lung) to pancreas with extension to duodenum, bone. Had EGD yesterday with small MW tear, Small bland ulcer of the antrum (greater curve). Edema with slight narrowing of the duodenum (probably 3rd portion). Will await biopsy result. Advance diet as tolerated to see how she does. If any recurrent symptoms would recommend SBFT. I think elevated lipase is more from tumor involvement of the tail of the pancreas rather than "pancreatitis" per se. Complaint of bloating and constipation. Currently being addressed by Dr. Nixon. Plan: 1. Advance diet as tolerated to regular diet. 2. Await biopsy results 3. Follow clinically 4. I would continue on PPI (can decrease to 40 mg a day of Pantoprazole at discharge) and repeat EGD in 8 weeks 12/15/16 11:21 Subjective: CC: Hematemesis. Feeling much better, having some bloating and constipation today. Objective: Vital Signs Temp Pulse Resp BP Pulse Ox 36.6 C 110 H 15 130/86 H 98 12/15/16 07:39 12/15/16 07:39 12/15/16 07:39 12/15/16 07:39 12/15/16 07:39 Laboratory Results 12/15/16 05:00 12/15/16 05:00 12/14/16 12/15/16 12/16/16 05:59 05:59 05:59 Intake Total 1700 1700 Output Total 5 100 Balance 1695 1600 PT 21.0 SEC (12.0-15.0) H 12/15/16 05:00 INR 1.80 (0.83-1.16) H 12/15/16 05:00 Generic Name Dose Route Start Last Admin Trade Name Freq PRN Reason Stop Dose Admin Acetaminophen 650 mg 12/14/16 13:39 12/14/16 21:07 Tylenol PO 06/12/17 13:38 650 mg Q6 PRN Administration Pain, Mild/Fever, Can Take PO Cholecalciferol 1,000 units 12/15/16 09:00 12/15/16 10:23 Vitamin D PO 06/13/17 08:59 1,000 units DAILY FARHAT Administration Potassium Chloride/Dextrose/Sod Cl 1,000 mls @ 125 mls/hr 12/14/16 13:45 13:54 D5w 1/2 Ns W/ 20 Kcl/L IV 06/12/17 13:44 1,000 mls CONT FARHAT Administration Ondansetron HCl 4 mg 12/14/16 13:39 Zofran IVP 06/12/17 13:38 Q4 PRN Nausea/Vomiting, Can't Take PO Ondansetron HCl 4 mg 12/15/16 09:35 Zofran Odt PO 06/13/17 09:34 Q6HRS PRN Nausea/Vomiting, Use 1st Pantoprazole Sodium 40 mg 12/15/16 09:00 12/15/16 10:23 Protonix PO 06/13/17 08:59 40 mg BID FARHAT Administration Potassium Chloride 20 meq 12/14/16 21:00 12/15/16 10:23 Klor Packets PO 06/12/17 20:59 20 meq BID FARHAT Administration Promethazine HCl 12.5 mg 12/14/16 13:39 Phenergan IVP 06/12/17 13:38 Q6 PRN Nausea/Vomiting, Can't Take PO Promethazine HCl 6.25 mg 12/15/16 09:35 Phenergan PO 06/13/17 09:34 Q6HRS PRN Nausea/Vomiting, Use 2nd Senna/Docusate Sodium 1 tab 12/15/16 09:45 12/15/16 10:23 Senokot-S PO 06/13/17 09:44 1 tab BID FARHAT Administration Discontinued Medications Generic Name Dose Route Start Last Admin Trade Name Freq PRN Reason Stop Dose Admin Acetaminophen 500 mg 12/14/16 14:59 Tylenol PO 12/14/16 15:59 Q6HRS PRN PACU, Pain Mild Albuterol 3 ml 12/14/16 14:59 Proventil Neb IH 12/14/16 15:59 Q10M PRN PACU, Wheezing Cyclobenzaprine HCl 10 mg 12/14/16 13:14 12/14/16 16:33 Flexeril PO 06/12/17 13:13 10 mg TID PRN Administration Pain, Moderate Ephedrine Sulfate 25 mg 12/14/16 14:59 Ephedrine Sulfate IM 12/14/16 16:00 ONCE PRN PACU, Nausea/Vomiting Epinephrine HCl Confirm 12/14/16 14:45 Epinephrine Administered 12/14/16 14:46 Dose 1 mg .ROUTE .STK-MED ONE Fentanyl 25 - 100 mcg 12/14/16 14:59 Sublimaze IVP 12/14/16 15:59 Q5M PRN PACU, IMMEDIATE Pain control Gadobutrol Confirm 12/14/16 17:13 Gadavist 1 Mmol/Ml Administered 12/14/16 17:14 Dose 10 ml IVP .STK-MED ONE Sodium Chloride 1,000 mls @ 0 mls/hr 12/14/16 08:51 12/14/16 09:03 Ns IV 12/14/16 08:52 1,000 mls EDNOW ONE Administration Protocol Wide Open Pantoprazole Sodium 40 mg/ 100 mls @ 200 mls/hr 12/14/16 13:45 12/14/16 21:07 Sodium Chloride IV 06/12/17 13:44 100 mls BID FARHAT Administration Phytonadione 10 mg/ Sodium 51 mls @ 102 mls/hr 12/14/16 13:49 12/14/16 16:40 Chloride IV 12/14/16 14:18 Not Given ONCE ONE Lactated Ringer's 500 mls @ 0 mls/hr 12/14/16 14:59 Lr IV 12/14/16 16:00 PRN PRN PACU, Nausea/Vomiting Post-Op Wide Open Lidocaine HCl Confirm 12/14/16 14:34 Xylocaine-Mpf 2% Vial Administered 12/14/16 14:35 Dose 5 ml .ROUTE .STK-MED ONE Midazolam HCl Confirm 12/14/16 14:47 Versed Administered 12/14/16 14:48 Dose 2 mg .ROUTE .STK-MED ONE Morphine Sulfate 2 mg 12/14/16 09:04 12/14/16 09:12 Morphine IVP 12/14/16 09:05 2 mg EDNOW ONE Administration Naloxone HCl 0.1 mg 12/14/16 14:59 Narcan IVP 12/14/16 15:59 Q2M PRN PACU Resp Rate <10/min Ondansetron HCl 2 - 4 mg 12/14/16 14:59 Zofran IVP 12/14/16 16:00 Q10M PRN PACU, Nausea/Vomiting Oxycodone/Acetaminophen 1 - 2 tab 12/14/16 14:59 Percocet 5/325 PO 12/14/16 16:00 Q4HRS PRN PACU, Pain Severe Phytonadione 5 mg 12/14/16 13:50 12/14/16 16:56 Vitamin K PO 12/14/16 13:51 Not Given DAILY ONE Phytonadione 5 mg 12/14/16 16:45 12/14/16 16:55 Vitamin K PO 12/14/16 16:46 5 mg ONCE ONE Administration Propofol Confirm 12/14/16 14:34 Diprivan 10 Mg/Ml (Premix) Administered 12/14/16 14:35 Dose 500 mg IV .STK-MED ONE Zolpidem Tartrate 5 - 10 mg 12/14/16 13:39 Ambien PO 06/12/17 13:38 HS PRN Sleep/Insomnia Physical Exam - Physical Exam General Appearance: alert, no apparent distress Respiratory: lungs clear, normal breath sounds Cardiac/Chest: regular rate, rhythm Abdomen: normal bowel sounds, non-tender, soft Skin: normal color, warm/dry Extremities: non-tender Neuro/Psych: no motor/sensory deficits, alert, normal mood/affect ICD10 Worksheet Patient Problems: Problems Problem Status Onset Abdominal pain Acute Metastatic lung cancer (metastasis from lung to other site) Acute Vomiting Acute
[2016-12-15] MEDS: PANTOPRAZOLE SODIUM 40 MG in NS 100 ML IV SCH (12:00)
[2016-12-15] MEDS: ACETAMINOPHEN 325 MG TAB PO PRN ×2 (13:26→20:40)
[2016-12-15] MEDS: SUCRALFATE 1 GM/10 ML UDCUP PO SCH ×3 (13:37→20:40)
--- NOTE | 2016-12-15 14:34 | SOAPPROG ---
SOAP Progress Note Assessment/Plan: E&M for NSCLC * NSCLC with brain, lung, liver, kidney, and bone mets: Day 8 Cycle 4 docetaxel + ramicurimab. Disease is stable on CT and MRI. Chemo causing fatigue and low blood counts. We are discussing whether to continue on vs. stopping and looking for other options. * Abd pain: She is tender over area where she has inflammation on the pancreas. She has had elevated lipase for months and previously no trouble with eating causing worsening symptoms. Agree with trying Carafate. not improving, could try pancreatic enzymes to see if it helps. GI not confident it will. She also had a small ulcer and a "mild extrinsic deformity" in the duodenum. Could be mets but nothing obviously seen on CT. * Hallucinations and disequilibrium: Probably due to medication (?flexeril). Had terrible dreams last night. Subjective: Still no appetite and vomited once this morning. Feels bloated but no diarrhea. Objective: Vital Signs Temp Pulse Resp BP Pulse Ox 36.9 C 103 H 15 137/94 H 90 L 12/15/16 11:48 12/15/16 11:48 12/15/16 11:48 12/15/16 11:48 12/15/16 11:48 PT 21.0 SEC (12.0-15.0) H 12/15/16 05:00 INR 1.80 (0.83-1.16) H 12/15/16 05:00 Physical Exam - Physical Exam General Appearance: no apparent distress Respiratory: lungs clear Cardiac/Chest: regular rate, rhythm Abdomen: hepatomegaly, No non-tender (LUQ) ICD10 Worksheet Patient Problems: Problems Problem Status Onset Metastasis to kidney Chronic Metastatic cancer to brain Chronic Metastatic cancer to liver Chronic Bone metastases Chronic Abdominal pain Acute Vomiting Acute Metastatic lung cancer (metastasis from lung to other site) Chronic ~05/2015
[2016-12-15] MEDS: ONDANSETRON 4 MG/2 ML VIAL IVP PRN ×2 (17:36→20:40)
[2016-12-15] MEDS: D5W 1/2 NS W/ 20 KCl/L 1,000 ML IV SCH (20:39)
[2016-12-16] MEDS: ONDANSETRON 4 MG/2 ML VIAL IVP PRN ×3 (02:18→09:27)
[2016-12-16] MEDS: D5W 1/2 NS W/ 20 KCl/L 1,000 ML IV SCH (05:04)
[2016-12-16 05:48] LABS: INR 2.18 (0.83-1.16); PROTIME(PATIENT) 24.4 SEC (12.0-15.0)
--- NOTE | 2016-12-16 08:54 | SOAPPROG ---
SOAP Progress Note Assessment/Plan: Assessment: Metastatic Small Cell CA (from Lung). EGD biopsies unremarkable. Still unable to eat. Denies pain with eating but unable to keep PO down. Plan: Will proceed with SBFT to evaluate duodenal sweep and rule out obstructive process. 12/16/16 08:57 Subjective: CC: Hematemesis, nausea and vomiting. Unable to eat. Has been unable to tolerate po and vomiting her meals. Objective: Vital Signs Temp Pulse Resp BP Pulse Ox 36.3 C 106 H 18 129/91 H 91 L 12/16/16 07:34 12/16/16 07:34 12/16/16 07:34 12/16/16 07:34 12/16/16 07:34 12/15/16 12/16/16 12/17/16 05:59 05:59 05:59 Intake Total 1700 Output Total 1700 Balance 0 PT 24.4 SEC (12.0-15.0) H 12/16/16 04:50 INR 2.18 (0.83-1.16) H 12/16/16 04:50 Generic Name Dose Route Start Last Admin Trade Name Freq PRN Reason Stop Dose Admin Acetaminophen 650 mg 12/14/16 13:39 12/15/16 20:40 Tylenol PO 06/12/17 13:38 650 mg Q6 PRN Administration Pain, Mild/Fever, Can Take PO Cholecalciferol 1,000 units 12/15/16 09:00 12/15/16 10:23 Vitamin D PO 06/13/17 08:59 1,000 units DAILY FARHAT Administration Potassium Chloride/Dextrose/Sod Cl 1,000 mls @ 125 mls/hr 12/14/16 13:45 05:04 D5w 1/2 Ns W/ 20 Kcl/L IV 06/12/17 13:44 1,000 mls CONT FARHAT Administration Ondansetron HCl 4 mg 12/14/16 13:39 12/16/16 05:04 Zofran IVP 06/12/17 13:38 4 mg Q4 PRN Administration Nausea/Vomiting, Can't Take PO Ondansetron HCl 4 mg 12/15/16 09:35 Zofran Odt PO 06/13/17 09:34 Q6HRS PRN Nausea/Vomiting, Use 1st Pantoprazole Sodium 40 mg 12/15/16 09:00 12/15/16 21:05 Protonix PO 06/13/17 08:59 40 mg BID FARHAT Administration Potassium Chloride 20 meq 12/14/16 21:00 12/15/16 20:40 Klor Packets PO 06/12/17 20:59 20 meq BID FARHAT Administration Promethazine HCl 12.5 mg 12/14/16 13:39 Phenergan IVP 06/12/17 13:38 Q6 PRN Nausea/Vomiting, Can't Take PO Promethazine HCl 6.25 mg 12/15/16 09:35 Phenergan PO 06/13/17 09:34 Q6HRS PRN Nausea/Vomiting, Use 2nd Senna/Docusate Sodium 1 tab 12/15/16 09:45 12/15/16 20:40 Senokot-S PO 06/13/17 09:44 1 tab BID FARHAT Administration Sucralfate 1 gm 12/15/16 12:15 12/15/16 20:40 Carafate Suspension PO 06/13/17 12:14 1 gm ACHS FARHAT Administration Discontinued Medications Generic Name Dose Route Start Last Admin Trade Name Freq PRN Reason Stop Dose Admin Acetaminophen 500 mg 12/14/16 14:59 Tylenol PO 12/14/16 15:59 Q6HRS PRN PACU, Pain Mild Albuterol 3 ml 12/14/16 14:59 Proventil Neb IH 12/14/16 15:59 Q10M PRN PACU, Wheezing Cyclobenzaprine HCl 10 mg 12/14/16 13:14 12/14/16 16:33 Flexeril PO 06/12/17 13:13 10 mg TID PRN Administration Pain, Moderate Ephedrine Sulfate 25 mg 12/14/16 14:59 Ephedrine Sulfate IM 12/14/16 16:00 ONCE PRN PACU, Nausea/Vomiting Epinephrine HCl Confirm 12/14/16 14:45 Epinephrine Administered 12/14/16 14:46 Dose 1 mg .ROUTE .STK-MED ONE Fentanyl 25 - 100 mcg 12/14/16 14:59 Sublimaze IVP 12/14/16 15:59 Q5M PRN PACU, IMMEDIATE Pain control Gadobutrol Confirm 12/14/16 17:13 Gadavist 1 Mmol/Ml Administered 12/14/16 17:14 Dose 10 ml IVP .STK-MED ONE Sodium Chloride 1,000 mls @ 0 mls/hr 12/14/16 08:51 12/14/16 09:03 Ns IV 12/14/16 08:52 1,000 mls EDNOW ONE Administration Protocol Wide Open Pantoprazole Sodium 40 mg/ 100 mls @ 200 mls/hr 12/14/16 13:45 12/15/16 12:00 Sodium Chloride IV 06/12/17 13:44 Not Given BID FARHAT Phytonadione 10 mg/ Sodium 51 mls @ 102 mls/hr 12/14/16 13:49 12/14/16 16:40 Chloride IV 12/14/16 14:18 Not Given ONCE ONE Lactated Ringer's 500 mls @ 0 mls/hr 12/14/16 14:59 Lr IV 12/14/16 16:00 PRN PRN PACU, Nausea/Vomiting Post-Op Wide Open Lidocaine HCl Confirm 12/14/16 14:34 Xylocaine-Mpf 2% Vial Administered 12/14/16 14:35 Dose 5 ml .ROUTE .STK-MED ONE Midazolam HCl Confirm 12/14/16 14:47 Versed Administered 12/14/16 14:48 Dose 2 mg .ROUTE .STK-MED ONE Morphine Sulfate 2 mg 12/14/16 09:04 12/14/16 09:12 Morphine IVP 12/14/16 09:05 2 mg EDNOW ONE Administration Naloxone HCl 0.1 mg 12/14/16 14:59 Narcan IVP 12/14/16 15:59 Q2M PRN PACU Resp Rate <10/min Ondansetron HCl 2 - 4 mg 12/14/16 14:59 Zofran IVP 12/14/16 16:00 Q10M PRN PACU, Nausea/Vomiting Oxycodone/Acetaminophen 1 - 2 tab 12/14/16 14:59 Percocet 5/325 PO 12/14/16 16:00 Q4HRS PRN PACU, Pain Severe Phytonadione 5 mg 12/14/16 13:50 12/14/16 16:56 Vitamin K PO 12/14/16 13:51 Not Given DAILY ONE Phytonadione 5 mg 12/14/16 16:45 12/14/16 16:55 Vitamin K PO 12/14/16 16:46 5 mg ONCE ONE Administration Propofol Confirm 12/14/16 14:34 Diprivan 10 Mg/Ml (Premix) Administered 12/14/16 14:35 Dose 500 mg IV .STK-MED ONE Zolpidem Tartrate 5 - 10 mg 12/14/16 13:39 Ambien PO 06/12/17 13:38 HS PRN Sleep/Insomnia Physical Exam - Physical Exam General Appearance: alert, no apparent distress Respiratory: normal breath sounds, other (slight wheezing) Cardiac/Chest: regular rate, rhythm Abdomen: normal bowel sounds, non-tender, soft Skin: normal color, warm/dry Neuro/Psych: alert, normal mood/affect, oriented x 3 ICD10 Worksheet Patient Problems: Problems Problem Status Onset Abdominal pain Acute Vomiting Acute Bone metastases Chronic Metastasis to kidney Chronic Metastatic cancer to brain Chronic Metastatic cancer to liver Chronic Metastatic lung cancer (metastasis from lung to other site) Chronic ~05/2015
--- NOTE | 2016-12-16 09:32 | SOAPPROG ---
SOAP Progress Note Assessment/Plan: E&M for NSCLC * NSCLC with brain, lung, liver, kidney, and bone mets: Day 9 Cycle 4 docetaxel + ramicurimab. Disease is stable on CT and MRI. Chemo causing fatigue and low blood counts. We are discussing whether to continue on vs. stopping and looking for other options vs. stopping and going to hospice. * Abd pain with vomiting: Decreased bowel sounds and tender LUQ. Wonder if she might have some dysmotility. D/W Dr. Coker and he is getting SBFT. If no obstruction, perhaps benefit from reglan. * Hallucinations and disequilibrium: Brain MRI stable. Probably due to medication (?flexeril). No current problems reported. Subjective: Vomiting over night without nausea. Ok with sitting up but felt reflux then vomited with lying flat. Objective: Vital Signs Temp Pulse Resp BP Pulse Ox 36.3 C 106 H 18 129/91 H 91 L 12/16/16 07:34 12/16/16 07:34 12/16/16 07:34 12/16/16 07:34 12/16/16 07:34 12/15/16 12/16/16 12/17/16 05:59 05:59 05:59 Intake Total 1700 Output Total 1700 Balance 0 PT 24.4 SEC (12.0-15.0) H 12/16/16 04:50 INR 2.18 (0.83-1.16) H 12/16/16 04:50 Physical Exam - Physical Exam General Appearance: no apparent distress Respiratory: lungs clear Cardiac/Chest: tachycardia Abdomen: soft, No normal bowel sounds (decreased) ICD10 Worksheet Patient Problems: Problems Problem Status Onset Abdominal pain Acute Vomiting Acute Bone metastases Chronic Metastasis to kidney Chronic Metastatic cancer to brain Chronic Metastatic cancer to liver Chronic Metastatic lung cancer (metastasis from lung to other site) Chronic ~05/2015
[2016-12-16] MEDS: PANTOPRAZOLE SODIUM 40 MG TAB PO SCH (09:40)
[2016-12-16] MEDS: POTASSIUM CL 20 MEQ PKT PO SCH (09:40)
[2016-12-16] MEDS: SENNOSIDES/DOCUSATE SODIUM TAB PO SCH ×2 (09:40→22:46)
[2016-12-16] MEDS: CHOLECALCIFEROL VIT D3 1,000 UNITS TAB PO SCH (09:40)
[2016-12-16] MEDS: SUCRALFATE 1 GM/10 ML UDCUP PO SCH ×2 (09:41→11:30)
--- NOTE | 2016-12-16 11:01 | HOSPPROG ---
Hospitalist Progress Note Assessment/Plan: Nausea / Vomiting with small amount of hematemesis (resolved) - EGD showed carloz manuel tear, non-bleeding gastric ulcer, and duodenal deformity (?edema vs narrowing). Consider if this represents compression of duodenum from pancreatic tail tumor, though per imaging review with rads, unlikely. N/V persisted overnight. -SBFT today concerning for obstructive process -Cont BID PPI, back to IV given vomiting -NG tube for decompression -NPO Chronic pancreatitis secondary to metastatic dz - may be contributing to above. Unclear if this is true pancreatitis vs tumor invasion. Lung cancer with extensive metastatic disease to kidneys, liver, pancreas - brain MRI w/o evidence of mets. Oncology following, discussing treatment options. Pt may opt to take a break from chemo and see if tumors grow. 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 SCD's, ambulation Dispo - cont inpt, CM / SW consult, pt needs more support services Subjective: Pt again tearful. Vomited overnight. Did not tolerate full liquids , vomited after a few bites of oatmeal and also vomiting after jello and clears. No fevers. No BM. Some abdominal discomfort. Objective: Vital Signs Temp Pulse Resp BP Pulse Ox 36.3 C 106 H 18 129/91 H 91 L 12/16/16 07:34 12/16/16 07:34 12/16/16 07:34 12/16/16 07:34 12/16/16 07:34 12/15/16 12/16/16 12/17/16 05:59 05:59 05:59 Intake Total 1700 Output Total 1700 Balance 0 PT 24.4 SEC (12.0-15.0) H 12/16/16 04:50 INR 2.18 (0.83-1.16) H 12/16/16 04:50 - Physical Exam Constitutional: no apparent distress Eyes: PERRL Ears, Nose, Mouth, Throat: moist mucous membranes Cardiovascular: regular rate and rhythym Respiratory: no respiratory distress, clear to auscultation Gastrointestinal: other (soft, +epigastric TTP with voluntary guarding, no rigidity or peritoneal signs) Skin: warm Musculoskeletal: full muscle strength Neurologic: AAOx3 Psychiatric: interacting appropriately, depressed ICD10 Worksheet Patient Problems: Problems Problem Status Onset Abdominal pain Acute Vomiting Acute Bone metastases Chronic Metastasis to kidney Chronic Metastatic cancer to brain Chronic Metastatic cancer to liver Chronic Metastatic lung cancer (metastasis from lung to other site) Chronic ~05/2015
[2016-12-16] MEDS ORDERED: METOCLOPRAMIDE 10 MG/2 ML VIAL IVP SCH (13:30)
[2016-12-16] MEDS: HYDROmorphONE/DILAUDID 1 MG/ML INJ IVP PRN ×2 (14:38→20:46)
[2016-12-16] MEDS: CEPACOL LOZENGE PO PRN (20:39)
[2016-12-16] MEDS: PANTOPRAZOLE SODIUM 40 MG in NS 100 ML IV SCH (20:42)
[2016-12-17] MEDS: D5W 1/2 NS W/ 20 KCl/L 1,000 ML IV SCH ×2 (01:32→19:50)
[2016-12-17 06:07] LABS: ABSOLUTE NRBC COUNT 0.12 10^3/uL (0-0.01); ADD DIFF? YES; ADD MORPH? NO; ADD SCAN? NO; ATYPICAL LYMPHOCYTE FLAG 50 (0-99); FRAGMENT RBC FLAG 20 (0-99); HEMATOCRIT 27.8 % (38.0-47.0); HEMOGLOBIN 8.9 g/dL (12.6-16.3); LEFT SHIFT FLG 70 (0-99); LIPEMIA HEMOLYSIS FLAG 80 (0-99); MEAN CELL HEMOGLOBIN 28.1 pg (27.9-34.1); MEAN CELL VOLUME 87.7 fL (81.5-99.8); NRBC-AUTO% 0.9 % (0.0-0.2); PLATELET CLUMPS FLAG 0 (0-99); PLATELET COUNT 238 10^3/uL (150-400); RED BLOOD CELL COUNT 3.17 10^6/uL (4.18-5.33); RED CELL DISTRIBUTION WIDTH 19.7 % (11.5-15.2)
[2016-12-17 06:20] LABS: INR 2.38 (0.83-1.16); PROTIME(PATIENT) 26.2 SEC (12.0-15.0)
[2016-12-17 06:31] LABS: ALANINE AMINOTRANSFERASE 27 IU/L (9-52); ALBUMIN 2.5 g/dL (3.5-5.0); ALKALINE PHOSPHATASE 111 IU/L (38-126); ANION GAP 9 mEq/L (8-16); ASPARTATE AMINOTRANSFERASE 66 IU/L (14-46); BILIRUBIN,TOTAL 0.5 mg/dL (0.1-1.4); CALCIUM 7.9 mg/dL (8.5-10.4); CARBON DIOXIDE 21 mEq/l (22-31); CHLORIDE 105 mEq/L (97-110); CREATININE 0.9 mg/dL (0.6-1.0); GLOMERULAR FILTRATION RATE > 60; GLUCOSE 93 mg/dL (70-100); POTASSIUM 4.1 mEq/L (3.5-5.2); SODIUM 135 mEq/L (134-144); TOTAL PROTEIN 4.9 g/dL (6.3-8.2)
[2016-12-17 07:07] LABS: PLATELET ESTIMATE ADEQUATE (ADEQ)
--- NOTE | 2016-12-17 07:21 | SOAPPROG ---
SOAP Progress Note Assessment/Plan: Assessment/Plan: 51 yo woman w metastatic NSCLC who p/w abd pain/vomiting 1. abd pain and vomiting - SBFT suggests mechanical obx and clinically agree based on significant relief w NGT she has narrowing in 2nd/3rd portions of duodenum CT abd done on not suggestive of pancreatic mass however may have been difficult to interpret due to ongoing pancreatitis? given unclear etiology of obx, would be beneficial to repeat imaging, ie MRI? may need to d/w surgery 2. NSCLC - brain, lung, liver, bone mets Day 10 C4 docetaxel + ramucirumab Dz stable of CT and MRI most recently chemo causing fatigue and low blood counts 3. Hallucinations - resolved 12/17/16 07:15 12/17/16 07:17 Subjective: Pt feeling much better s/p NGT N/V resolved Objective: Vital Signs Temp Pulse Resp BP Pulse Ox 36.8 C 118 H 16 137/91 H 92 12/17/16 04:00 12/17/16 04:00 12/17/16 04:00 12/17/16 04:00 12/17/16 04:00 Laboratory Results 12/17/16 05:50 12/17/16 05:50 12/16/16 12/17/16 12/18/16 05:59 05:59 05:59 Intake Total 1700 3550 Output Total 1700 3450 Balance 0 100 PT 26.2 SEC (12.0-15.0) H 12/17/16 05:50 INR 2.38 (0.83-1.16) H 12/17/16 05:50 NGT output >2000 Gen - resting, NAD HEENT - anicteric CV - RRR Chest -clear bilaterally Abd - soft, BS absent this am, no rebound or guarding Ext - minimal edema Neuro - nonfocal ICD10 Worksheet Patient Problems: Problems Problem Status Onset Abdominal pain Acute Vomiting Acute Bone metastases Chronic Metastasis to kidney Chronic Metastatic cancer to brain Chronic Metastatic cancer to liver Chronic Metastatic lung cancer (metastasis from lung to other site) Chronic ~05/2015
[2016-12-17] MEDS: PANTOPRAZOLE SODIUM 40 MG in NS 100 ML IV SCH ×2 (09:34→21:21)
[2016-12-17] MEDS: CHOLECALCIFEROL VIT D3 1,000 UNITS TAB PO SCH (10:36)
[2016-12-17] MEDS: SENNOSIDES/DOCUSATE SODIUM TAB PO SCH ×2 (10:37→19:53)
[2016-12-17] MEDS: HYDROmorphONE/DILAUDID 1 MG/ML INJ IVP PRN ×2 (12:24→15:50)
--- NOTE | 2016-12-17 13:16 | HOSPPROG ---
Hospitalist Progress Note Assessment/Plan: Nausea / Vomiting with small amount of hematemesis (resolved) - EGD showed carloz manuel tear, non-bleeding gastric ulcer, and duodenal deformity (?edema / duodenitis vs narrowing). Consider if this represents compression of duodenum from pancreatic tail tumor or is a duodenitis secondary to pancreatitis. N/V improved with placement of NGT. SBFT abnormal. -reviewed imaging with radiology, will obtain MRCP to evaluate for pancreatic mets vs pancreatitis causing duodenitis -repeat lipase in am -may warrent endoscopy or surgical evaluation -Cont BID PPI -Cont NG tube for decompression -NPO Chronic pancreatitis secondary to metastatic dz - may be contributing to above. Unclear if this is true pancreatitis vs tumor invasion. -MRCP as above Lung cancer with extensive metastatic disease to kidneys, liver - brain MRI w/o evidence of mets. Oncology following, discussing treatment options. Pt may opt to take a break from chemo and see if tumors grow. Leukocytosis - no fevers. But increasing bands noted. She does have a wet cough. -check CXR, draw BCx's -check PCT Coagulopathy 2/2 liver mets - s/p Vit K, will defer further doses given risk for thromboembolic dz. However, INR on the rise -trend INR, consider repeat Vit K if continues to rise Parasomnia - awoke on bathroom floor after lucid dreaming event 12/15. 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 SCD's, ambulation , ?auto-anticoagulated Dispo - cont inpt, CM / SW consult, pt needs more support services. Recommend palliative care. Subjective: Pt feels better with NG tube. No more N/V. Abdominal pain improved. No fevers. No CP or SOB. Objective: Vital Signs Temp Pulse Resp BP Pulse Ox 36.8 C 95 16 127/88 H 96 12/17/16 11:42 12/17/16 11:42 12/17/16 11:42 12/17/16 11:42 12/17/16 11:42 Laboratory Results 12/17/16 05:50 12/17/16 05:50 12/16/16 12/17/16 12/18/16 05:59 05:59 05:59 Intake Total 1700 3550 Output Total 1700 3450 250 Balance 0 100 -250 PT 26.2 SEC (12.0-15.0) H 12/17/16 05:50 INR 2.38 (0.83-1.16) H 12/17/16 05:50 - Physical Exam Constitutional: no apparent distress Eyes: PERRL Ears, Nose, Mouth, Throat: moist mucous membranes Cardiovascular: regular rate and rhythym Respiratory: no respiratory distress, clear to auscultation Gastrointestinal: other (soft, nd, +high pitched bowel tones, no r/r/g) Skin: warm Musculoskeletal: full muscle strength Neurologic: AAOx3 Psychiatric: interacting appropriately ICD10 Worksheet Patient Problems: Problems Problem Status Onset Abdominal pain Acute Vomiting Acute Bone metastases Chronic Metastasis to kidney Chronic Metastatic cancer to brain Chronic Metastatic cancer to liver Chronic Metastatic lung cancer (metastasis from lung to other site) Chronic ~05/2015
--- NOTE | 2016-12-17 14:18 | SOAPPROG ---
MYRIAM Progress Note Assessment/Plan: Assessment:Plan: 1) GOO from compression of duodenum ?from tumor vs inflammation? - I do suspect tumor, MRI/MRCP ordered for today 2) met lung ca - as per oncology will likely need either EGD and stent placement or surgery to correct GOO from duodenal compression 12/17/16 14:14 Subjective: cc- GOO from duodenal compression Pt feeling better with NGT decompression, no n/v, says pain much better Objective: Vital Signs Temp Pulse Resp BP Pulse Ox 36.8 C 95 16 127/88 H 96 12/17/16 11:42 12/17/16 11:42 12/17/16 11:42 12/17/16 11:42 12/17/16 11:42 Laboratory Results 12/17/16 05:50 12/17/16 05:50 12/16/16 12/17/16 12/18/16 05:59 05:59 05:59 Intake Total 1700 3550 Output Total 1700 3450 250 Balance 0 100 -250 PT 26.2 SEC (12.0-15.0) H 12/17/16 05:50 INR 2.38 (0.83-1.16) H 12/17/16 05:50 A+Ox3 CTA S1S2 +BS, soft minimal tenderness on deep palpation SBFT - mechanical obstruction at junction of second and third portion of duodenum with upstream dilation ICD10 Worksheet Patient Problems: Problems Problem Status Onset Abdominal pain Acute Vomiting Acute Bone metastases Chronic Metastasis to kidney Chronic Metastatic cancer to brain Chronic Metastatic cancer to liver Chronic Metastatic lung cancer (metastasis from lung to other site) Chronic ~05/2015
--- NOTE | 2016-12-17 14:44 | ASMTCMCOM ---
CM Note CM Note Notes: Met with pt for discharge needs and resources. Pt is a single mother of a 13 y/o daughter. She talked about needing help from her daughter and also wanting her to enjoy spending time with friends. Recommended the possibility of hiring pvt duty help for 2 hrs/day 3x/week. Put in a red lipstick request and gave pt a pvt duty list. Also discussed having a palliative agency follow pt for symptoms. She agreed it would be helpful. Dr Nixon put in order and referral faxed to [facility]. Eduin Barone met with pt at [facility] today. Pt's father is in town from [place] and was present at meeting. Pt agreed to sign on for palliative at [place]. Pt could also benefit from HC RN and will make choice. Pt's family is all in [place] but she has many local friends. She is having trouble keeping up with the phone calls and texts. Suggested she choose one friend who would be willing to be the point person. Pt welcomed suggestion and has a friend, Pearl, with whom she plans to discuss this. C/M will continue to follow. Date Signed: 12/17/2016 02:43 PM Electronically Signed By:Huma Huston LCSW
[2016-12-17] MEDS ORDERED: GADOBUTROL 10 ML VIAL IVP ONE (14:45)
[2016-12-17] MEDS ORDERED: PHYTONADIONE 5 MG in NS 50 ML IV ONE (17:58)
[2016-12-17] MEDS ORDERED: MEROPENEM 1 GM in NS 100 ML IV SCH (18:00)
[2016-12-17] MEDS: CEPACOL LOZENGE PO PRN (19:52)
[2016-12-17 22:23] LABS: COLOR YELLOW; LEUKOCYTE ESTERASE,URINE NEGATIVE (NEGATIVE); NITRITE,URINE NEGATIVE (NEGATIVE)
[2016-12-17 22:31] LABS: BACTERIA 1+ /hpf (NONE SEEN); MUCUS TRACE /lpf (NONE-1+)
--- NOTE | 2016-12-18 04:44 | PDCONSULT ---
Logistics Account Manager Note: 51 year old with metastatic non-small lung CA admitted for abdominal pain, nausea and hematemesis several days ago. She has known metastasis to the liver , brain, and pancreas. She has been on chemotherapy at [facility] and with Dr. Mckeon here at [facility]. On 12/14 she underwent EGD by Dr. Coker and was found to have a small gastric ulcer that was not bleeding and inflammation and obstruction beyond the second portion of the duodenum. On 12/16 she underwent SBFT which showed duodenal obstruction. A nasogastric tube was placed for decompression. A MRCP was performed on 12/17 and she was again noted to have a mass in the distal pancreas with duodenal obstruction. Her gallbladder was dilated and surgical consultation was requested by Dr. Nixon for possible cholecystitis. She has had no oral intake since 12/13. PMH: non small cell right lung CA with metastasis to liver, brain, pancreas, bone XRT brain chemotherapy all: PCN, Sulfa non-smoker SH: lives in [place]/here with her father/13 y/o daughter at home FH: NC PE: T36.6 P104 BP 134/96 R 16 chronically ill appearing female in mild distress Abd: focused exam: soft with tender mass LUQ/mild guarding, liver edge palpable 2 cm below costal margin NG tube with bilious drainage Imaging: CT, SBFT, MRI images reviewed on PACS with patient and her father Imp: 1. metastatic non small cell lung CA 2. nausea, vomiting, hematemesi: likely due to patient's known duodenal obstruction 3. mild GB distention on CT-no evidence of cystic duct obstruction or clinical signs of cholecystitis. Likely distended from NPO status and narcotics Rec: I discussed with Adriana and her father the options of management including endoscopic stent placment vs. surgical bypass. We discussed the pros and cons of each. I spoke with Dr. Warner of GI and apparently his partner Dr. Wilkins plans on performing stent placement this coming week. If this is unsuccessful and the patient requires surgical bypass via loop gastrojejunostomy or Julio C-N-Y bypass I would recommend a concurrent cholecystectomy as a matter of course. As the patient has been NPo for the past 5 days I would consider starting TPN S MD Bouchra, FACS
[2016-12-18] MEDS: D5W 1/2 NS W/ 20 KCl/L 1,000 ML IV SCH (04:47)
[2016-12-18] MEDS: HYDROmorphONE/DILAUDID 1 MG/ML INJ IVP PRN ×2 (04:47→21:14)
[2016-12-18 05:13] LABS: INR 1.29 (0.83-1.16); PROTIME(PATIENT) 16.1 SEC (12.0-15.0)
[2016-12-18 05:15] LABS: ABSOLUTE NRBC COUNT 0.08 10^3/uL (0-0.01); ADD DIFF? YES; ADD MORPH? NO; ADD SCAN? NO; ATYPICAL LYMPHOCYTE FLAG 60 (0-99); FRAGMENT RBC FLAG 20 (0-99); HEMATOCRIT 28.6 % (38.0-47.0); HEMOGLOBIN 9.1 g/dL (12.6-16.3); LEFT SHIFT FLG 30 (0-99); LIPEMIA HEMOLYSIS FLAG 80 (0-99); MEAN CELL HEMOGLOBIN 28.1 pg (27.9-34.1); MEAN CELL HEMOGLOBIN CONCENTR. 31.8 g/dL (32.4-36.7); MEAN CELL VOLUME 88.3 fL (81.5-99.8); MEAN PLATELET VOLUME 10.1 fL (8.7-11.7); NRBC-AUTO% 0.5 % (0.0-0.2); PLATELET CLUMPS FLAG 0 (0-99); PLATELET COUNT 222 10^3/uL (150-400); RED BLOOD CELL COUNT 3.24 10^6/uL (4.18-5.33); RED CELL DISTRIBUTION WIDTH 19.6 % (11.5-15.2)
[2016-12-18 05:21] LABS: ALANINE AMINOTRANSFERASE 30 IU/L (9-52); ALBUMIN 2.4 g/dL (3.5-5.0); ALKALINE PHOSPHATASE 112 IU/L (38-126); ANION GAP 10 mEq/L (8-16); ASPARTATE AMINOTRANSFERASE 71 IU/L (14-46); BILIRUBIN,TOTAL 0.8 mg/dL (0.1-1.4); CALCIUM 8.2 mg/dL (8.5-10.4); CARBON DIOXIDE 20 mEq/l (22-31); CHLORIDE 104 mEq/L (97-110); CREATININE 0.9 mg/dL (0.6-1.0); GLOMERULAR FILTRATION RATE > 60; GLUCOSE 99 mg/dL (70-100); POTASSIUM 3.9 mEq/L (3.5-5.2); SODIUM 134 mEq/L (134-144); TOTAL PROTEIN 5.2 g/dL (6.3-8.2)
[2016-12-18] MEDS: MEROPENEM 1 GM in NS 100 ML IV SCH ×2 (05:38→20:01)
[2016-12-18 07:49] LABS: PLATELET ESTIMATE ADEQUATE (ADEQ)
[2016-12-18] MEDS: PANTOPRAZOLE SODIUM 40 MG in NS 100 ML IV SCH ×2 (09:09→21:31)
[2016-12-18] MEDS: CHOLECALCIFEROL VIT D3 1,000 UNITS TAB PO SCH (09:09)
[2016-12-18] MEDS: SENNOSIDES/DOCUSATE SODIUM TAB PO SCH ×2 (09:10→21:14)
--- NOTE | 2016-12-18 09:57 | SOAPPROG ---
SOAP Progress Note Assessment/Plan: Assessment/Plan: 51 yo woman w metastatic NSCLC who p/w abd pain/vomiting 1. abd pain and vomiting - SBFT suggests mechanical obx and clinically agree based on significant relief w NGT she has narrowing in 2nd/3rd portions of duodenum likely from tumor compression MRI reviewed bowel rest and consider starting TPN GI to attempt stent in duodenum and if not successful, would then discuss surgery (Dr Shook consulted) 2. NSCLC - brain, lung, liver, bone mets Day 11 C4 docetaxel + ramucirumab Dz stable of CT and MRI most recently chemo causing fatigue and low blood counts 3. Hallucinations - resolved 12/18/16 09:55 Subjective: Continues to feel better no acute events Objective: Vital Signs Temp Pulse Resp BP Pulse Ox 36.6 C 104 H 18 134/96 H 94 12/18/16 08:23 12/18/16 08:23 12/18/16 08:23 12/18/16 08:23 12/18/16 08:23 Laboratory Results 12/18/16 04:45 12/18/16 04:45 12/17/16 12/18/16 12/19/16 05:59 05:59 05:59 Intake Total 3550 1440 Output Total 3450 2700 Balance 100 -1260 PT 16.1 SEC (12.0-15.0) H D 12/18/16 04:45 INR 1.29 (0.83-1.16) H 12/18/16 04:45 Gen - NAD HEENT - anicteric, NGT CV - RRR Resp - CTA anteriorly Abd - TTP in epigastrium; mass palpated in epigastrium and LUQ Ext - no sig edema ICD10 Worksheet Patient Problems: Problems Problem Status Onset Abdominal pain Acute Vomiting Acute Bone metastases Chronic Metastasis to kidney Chronic Metastatic cancer to brain Chronic Metastatic cancer to liver Chronic Metastatic lung cancer (metastasis from lung to other site) Chronic ~05/2015
[2016-12-18] MEDS ORDERED: D10W 1,000 ML IV PRN (10:45)
--- NOTE | 2016-12-18 10:55 | HOSPPROG ---
Hospitalist Progress Note Assessment/Plan: 51 yo female with metastatic lung cancer admitted with N/V and abdominal pain. Nausea / Vomiting with small amount of hematemesis (resolved) in setting of gastric outlet obstruction secondary to duodenal narrowing - EGD showed small carloz manuel tear, non-bleeding gastric ulcer, and duodenal narrowing. Unclear if this represents compression of duodenum from pancreatic tail tumor or is a duodenitis secondary to pancreatitis, but is clearly causing obstructive symptoms. N/V improved with placement of NGT. SBFT abnormal. MRCP raised concern for cholecystitis. Surgery consulted yesterday, who doubts cholecystitis and suspects tumor compressing duodenum causing obstruction. -GI planning for duodenal stent tomorrow by Dr. Wilkins -may warrant surgical intervention if stenting not successful in controlling her symptoms, appreciate surgical opinion -Cont BID PPI -Cont NG tube for decompression -NPO, starting TPN -cont meropenem / flagyl for now while awaiting BCX's given leukocytosis with bands, marked elevation of PCT and tachycardia ?Chronic pancreatitis secondary to metastatic dz - may be contributing to above. Unclear if this is true pancreatitis vs tumor invasion. Lung cancer with extensive metastatic disease to kidneys, liver - brain MRI w/o evidence of mets. Oncology following, discussing treatment options. Pt may opt to take a break from chemo and see if tumors grow. Coagulopathy 2/2 liver mets - s/p Vit K on arrival, repeated yesterday due to rising INR and plan for interventions. -cont to follow daily INR, repeat Vit K as indicated Parasomnia - awoke on bathroom floor after lucid dreaming event 12/15. 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 lovenox held due to hematemesis , which has not recurred. consider initiating lovenox for pplx after interventions tomorrow. SCD's in the meantime. Pt has not been wearing these, reviewed importance of SCD's, ambulation for clot prevention. Dispo - cont inpt, CM / SW consult, pt needs more support services. Palliative care consult requested. Subjective: Pt remains stable with NG tube, which has helped manage her N/V. No significant pain. Denies CP, SOB. Has chronic cough. Had a small BM this am. She is tearful, scared of leaving her daughter. Objective: Vital Signs Temp Pulse Resp BP Pulse Ox 36.6 C 104 H 18 134/96 H 94 12/18/16 08:23 12/18/16 08:23 12/18/16 08:23 12/18/16 08:23 12/18/16 08:23 Laboratory Results 12/18/16 04:45 12/18/16 04:45 12/17/16 12/18/16 12/19/16 05:59 05:59 05:59 Intake Total 3550 1440 Output Total 3450 2700 Balance 100 -1260 PT 16.1 SEC (12.0-15.0) H D 12/18/16 04:45 INR 1.29 (0.83-1.16) H 12/18/16 04:45 - Physical Exam Constitutional: chronically ill appearing Eyes: PERRL Ears, Nose, Mouth, Throat: moist mucous membranes Cardiovascular: regular rate and rhythym Respiratory: no respiratory distress, clear to auscultation Gastrointestinal: other (high pitched bowel tones, soft, mild distention, no peritoneal signs) Skin: warm Musculoskeletal: full muscle strength Neurologic: AAOx3 Psychiatric: interacting appropriately ICD10 Worksheet Patient Problems: Problems Problem Status Onset Abdominal pain Acute Vomiting Acute Bone metastases Chronic Metastasis to kidney Chronic Metastatic cancer to brain Chronic Metastatic cancer to liver Chronic Metastatic lung cancer (metastasis from lung to other site) Chronic ~05/2015
[2016-12-18 12:07] LABS: MAGNESIUM 1.7 mg/dL (1.6-2.3)
--- NOTE | 2016-12-18 13:31 | SOAPPROG ---
MYRIAM Progress Note Assessment/Plan: Assessment:Plan: 1) GOO from compression of duodenum ?from tumor vs inflammation? - I do suspect tumor, MRI/MRCP ordered for today 2) met lung ca - as per oncology will likely need either EGD and stent placement or surgery to correct GOO from duodenal compression 12/17/16 14:14 12/18/16 13:28 1) GOO - for duodenal stent either tomorrow or Monday once stent acquired. 2) met lung CA - as per oncology Pt feeling well with NGT decompression If stent not successful, then surgery Subjective: CC- GOO, feeling better with NGT not c/o any pain at present Objective: Vital Signs Temp Pulse Resp BP Pulse Ox 36.6 C 108 H 18 133/95 H 97 12/18/16 11:43 12/18/16 11:43 12/18/16 11:43 12/18/16 11:43 12/18/16 11:43 Laboratory Results 12/18/16 04:45 12/18/16 04:45 12/17/16 12/18/16 12/19/16 05:59 05:59 05:59 Intake Total 3550 1440 Output Total 3450 2700 600 Balance 100 -1260 -600 PT 16.1 SEC (12.0-15.0) H D 12/18/16 04:45 INR 1.29 (0.83-1.16) H 12/18/16 04:45 Coarse BS S1S2 +Bs, soft, ICD10 Worksheet Patient Problems: Problems Problem Status Onset Abdominal pain Acute Vomiting Acute Bone metastases Chronic Metastasis to kidney Chronic Metastatic cancer to brain Chronic Metastatic cancer to liver Chronic Metastatic lung cancer (metastasis from lung to other site) Chronic ~05/2015
[2016-12-18] MEDS ORDERED: D5W 1/2 NS W/ 20 KCl/L 1,000 ML IV SCH (21:00)
[2016-12-18] MEDS: TPN 1 EA BAG IV SCH (21:31)
[2016-12-19 05:50] LABS: ABSOLUTE NRBC COUNT 0.12 10^3/uL (0-0.01); ADD DIFF? YES; ADD MORPH? NO; ADD SCAN? NO; ATYPICAL LYMPHOCYTE FLAG 70 (0-99); FRAGMENT RBC FLAG 20 (0-99); HEMATOCRIT 27.2 % (38.0-47.0); HEMOGLOBIN 8.8 g/dL (12.6-16.3); LEFT SHIFT FLG 30 (0-99); LIPEMIA HEMOLYSIS FLAG 80 (0-99); MEAN CELL HEMOGLOBIN 28.5 pg (27.9-34.1); MEAN CELL HEMOGLOBIN CONCENTR. 32.4 g/dL (32.4-36.7); MEAN PLATELET VOLUME 10.2 fL (8.7-11.7); NRBC-AUTO% 0.8 % (0.0-0.2); PLATELET CLUMPS FLAG 0 (0-99); PLATELET COUNT 186 10^3/uL (150-400); RED BLOOD CELL COUNT 3.09 10^6/uL (4.18-5.33); RED CELL DISTRIBUTION WIDTH 19.6 % (11.5-15.2)
[2016-12-19 05:54] LABS: INR 1.16 (0.83-1.16); PROTIME(PATIENT) 14.8 SEC (12.0-15.0)
[2016-12-19 05:55] LABS: APTT 39.9 SEC (23.0-38.0)
[2016-12-19] MEDS: MEROPENEM 1 GM in NS 100 ML IV SCH ×3 (06:31→22:58)
[2016-12-19 06:33] LABS: ALANINE AMINOTRANSFERASE 23 IU/L (9-52); ALBUMIN 2.3 g/dL (3.5-5.0); ALKALINE PHOSPHATASE 114 IU/L (38-126); ANION GAP 10 mEq/L (8-16); ASPARTATE AMINOTRANSFERASE 63 IU/L (14-46); BILIRUBIN,TOTAL 0.6 mg/dL (0.1-1.4); CALCIUM 7.9 mg/dL (8.5-10.4); CARBON DIOXIDE 21 mEq/l (22-31); CHLORIDE 105 mEq/L (97-110); CREATININE 0.8 mg/dL (0.6-1.0); GLOMERULAR FILTRATION RATE > 60; GLUCOSE 108 mg/dL (70-100); MAGNESIUM 1.8 mg/dL (1.6-2.3); POTASSIUM 3.9 mEq/L (3.5-5.2); SODIUM 136 mEq/L (134-144); TOTAL PROTEIN 4.8 g/dL (6.3-8.2); TRIGLYCERIDE 117 mg/dL (35-135)
[2016-12-19 06:35] LABS: PLATELET ESTIMATE ADEQUATE (ADEQ); POLYCHROMASIA 1+; TOXIC GRANULATION PRESENT
--- NOTE | 2016-12-19 06:52 | PDCONSULT ---
Yarder Note: Adriana's case was discussed with Dr. Warner, Dr. Nixon and Dr. Ross. Plan is to attempt doudenal stent placement/alternative is gastrojejunostomy I would consider a repeat CT with IV and oral contrast prior to proceeding with stent placement. Adriana continues to have LUQ tenderness/mass, no RUQ tenderness S MD Bouchra, FACS
--- NOTE | 2016-12-19 08:14 | SOAPPROG ---
SOAP Progress Note Assessment/Plan: Assessment: 1) Metastatic NSC lung cancer 2) Mechanical bowel obstruction likely due to duodenal involvement from #1 Plan: Patient due to have CT abdomen today. GI will attempt to place a duodenal staent today or tomorrow when stent is available. If stent placement unsuccessful, or if it does not palliate her bowel obstruction, then surgery could be considered. Surgery intervention in this case would involve some degree of increased risk due to recent VEGF inhibitor therapy (Ramicurimab), and the presence of extensive metastatic disease. Patient continues NPO, and is receiving TPN. Care plan d/w patient and . Their questions were answered. 12/19/16 08:09 Subjective: Denies abdominal pain or nausea currently. NG tube remains in place. Patient is receiving TPN. at bedside. Objective: Vital Signs Temp Pulse Resp BP Pulse Ox 36.7 C 97 18 131/89 H 92 12/19/16 05:22 12/19/16 05:22 12/19/16 05:22 12/19/16 05:22 12/19/16 05:22 Laboratory Results 12/19/16 05:36 12/19/16 05:36 12/18/16 12/19/16 12/20/16 05:59 05:59 05:59 Intake Total 1440 326 Output Total 2700 1425 400 Balance -1260 -1099 -400 PT 14.8 SEC (12.0-15.0) 12/19/16 05:36 INR 1.16 (0.83-1.16) 12/19/16 05:36 - Time Spent With Patient Time Spent With Patient: 25 minutes Physical Exam - Physical Exam General Appearance: alert, no apparent distress EENT: PERRL/EOMI Respiratory: normal breath sounds Cardiac/Chest: regular rate, rhythm Abdomen: soft, other (mild to moderate distension. No palpable mass. No gaurding or rebound. Hypoactive BS present.) Skin: normal color Neuro/Psych: alert, normal mood/affect ICD10 Worksheet Patient Problems: Problems Problem Status Onset Abdominal pain Acute Vomiting Acute Bone metastases Chronic Metastasis to kidney Chronic Metastatic cancer to brain Chronic Metastatic cancer to liver Chronic Metastatic lung cancer (metastasis from lung to other site) Chronic ~05/2015
[2016-12-19] MEDS: PANTOPRAZOLE SODIUM 40 MG in NS 100 ML IV SCH ×2 (09:02→21:48)
[2016-12-19] MEDS: CHOLECALCIFEROL VIT D3 1,000 UNITS TAB PO SCH (09:26)
[2016-12-19] MEDS: SENNOSIDES/DOCUSATE SODIUM TAB PO SCH ×3 (09:26→21:51)
--- NOTE | 2016-12-19 10:53 | HOSPPROG ---
Hospitalist Progress Note Assessment/Plan: 51 yo female with metastatic lung cancer admitted with N/V and abdominal pain. Nausea / Vomiting with small amount of hematemesis (resolved) in setting of small bowel obstruction secondary to duodenal narrowing - EGD showed small carloz manuel tear, non-bleeding gastric ulcer, and duodenal narrowing. Unclear if this represents compression of duodenum from tumor or is a duodenitis secondary to pancreatitis. N/V improved with placement of NGT. SBFT abnormal. MRCP raised concern for cholecystitis though Dr. Shook doubts cholecystitis and suspects tumor compressing duodenum causing obstruction. Increased pain today. -CT abd/pelvis now -GI planning for duodenal stent today by Dr. Wilkins if stent available vs tomorrow -may warrant surgical intervention if stenting not successful in controlling her symptoms, note increased risk with recent chemo and extensive mets -Cont BID PPI -Cont NG tube for decompression -NPO, on TPN -cont meropenem / flagyl for now given leukocytosis with bands, marked elevation of PCT and tachycardia -BCx's pending ?Chronic pancreatitis secondary to metastatic dz - may be contributing to above. Unclear if this is true pancreatitis vs tumor invasion. Lung cancer with extensive metastatic disease to kidneys, liver, brain - brain MRI with extensive, but stable mets. Oncology following, discussing treatment options. Pt may opt to take a break from chemo. Coagulopathy 2/2 liver mets - Reversed with Vit K due to planned interventions -cont to follow daily INR, repeat Vit K as indicated Parasomnia - awoke on bathroom floor after lucid dreaming event 12/15. 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 lovenox held initially due to hematemesis, which has not recurred. consider initiating lovenox for pplx since no further bleeding, though defer today pending possible intervention. SCD's in the meantime. Pt has not been wearing these, reviewed importance of SCD's, ambulation for clot prevention. Dispo - cont inpt, CM / SW consult, pt needs more support services. Palliative care consult requested. Subjective: Pt doing okay, c/o increased abdominal discomfort. No N/V with NG tube still in place. No fevers. Objective: Vital Signs Temp Pulse Resp BP Pulse Ox 36.5 C 100 20 143/97 H 96 12/19/16 08:20 12/19/16 08:20 12/19/16 08:20 12/19/16 08:20 12/19/16 08:20 Laboratory Results 12/19/16 05:36 12/19/16 05:36 12/18/16 12/19/16 12/20/16 05:59 05:59 05:59 Intake Total 1440 326 Output Total 2700 1425 400 Balance -1260 -1099 -400 PT 14.8 SEC (12.0-15.0) 12/19/16 05:36 INR 1.16 (0.83-1.16) 12/19/16 05:36 - Physical Exam Constitutional: chronically ill appearing Eyes: PERRL Ears, Nose, Mouth, Throat: moist mucous membranes Cardiovascular: regular rate and rhythym Respiratory: no respiratory distress Gastrointestinal: other (soft, mild distention, +TTP epigastrium and RUQ, no peritoneal signs, +high pitched bowel tones) Skin: warm Musculoskeletal: full muscle strength Neurologic: AAOx3 Psychiatric: interacting appropriately, anxious ICD10 Worksheet Patient Problems: Problems Problem Status Onset Abdominal pain Acute Vomiting Acute Bone metastases Chronic Metastasis to kidney Chronic Metastatic cancer to brain Chronic Metastatic cancer to liver Chronic Metastatic lung cancer (metastasis from lung to other site) Chronic ~05/2015
[2016-12-19] MEDS ORDERED: NS 1,000 ML IV SCH (11:30)
[2016-12-19] MEDS ORDERED: IOPAMIDOL (ISOVUE-300) 100 ML BTL ONE (12:15)
[2016-12-19] MEDS: HYDROmorphONE/DILAUDID 1 MG/ML INJ IVP PRN ×2 (14:51→21:44)
--- NOTE | 2016-12-19 15:00 | SOAPPROG ---
SOABI Progress Note Assessment/Plan: Assessment:Plan: 12/18/16 13:28 1) GOO - for duodenal stent either tomorrow or Monday once stent acquired. 2) met lung CA - as per oncology Pt feeling well with NGT decompression If stent not successful, then surgery 12/19/16 14:57 as above pt with GOO in second/third portion of duodenum likely form metastatic dz CT today reviewed with radiologist contrast does get by into fourth portion duodenum 1) GOO - stent not in today, for attempt at stenting tomorrow when stents arrive in hospital 2) met lung ca - as per oncology Subjective: cc- GOO from compression of duodenum pt with more pain today in abdo no n/v NGT working well Objective: Vital Signs Temp Pulse Resp BP Pulse Ox 36.5 C 100 20 143/97 H 96 12/19/16 08:20 12/19/16 08:20 12/19/16 08:20 12/19/16 08:20 12/19/16 08:20 Laboratory Results 12/19/16 05:36 12/19/16 05:36 12/18/16 12/19/16 12/20/16 05:59 05:59 05:59 Intake Total 1440 326 610 Output Total 2700 1425 800 Balance -1260 -1099 -190 PT 14.8 SEC (12.0-15.0) 12/19/16 05:36 INR 1.16 (0.83-1.16) 12/19/16 05:36 Alert Coarse BS S1S2, RR +BS, soft distended tender no rebound CT reviewed, some contrast does get into prox SB more fluid collections near pancrease ICD10 Worksheet Patient Problems: Problems Problem Status Onset Abdominal pain Acute Vomiting Acute Bone metastases Chronic Metastasis to kidney Chronic Metastatic cancer to brain Chronic Metastatic cancer to liver Chronic Metastatic lung cancer (metastasis from lung to other site) Chronic ~05/2015
[2016-12-19] MEDS: TPN 1 EA BAG IV SCH (22:00)
[2016-12-20] MEDS: MEROPENEM 1 GM in NS 100 ML IV SCH (05:41)
[2016-12-20 06:21] LABS: ADD DIFF? YES; ADD MORPH? NO; ADD SCAN? NO; ATYPICAL LYMPHOCYTE FLAG 80 (0-99); FRAGMENT RBC FLAG 20 (0-99); HEMATOCRIT 27.6 % (38.0-47.0); HEMOGLOBIN 8.8 g/dL (12.6-16.3); INR 1.15 (0.83-1.16); LEFT SHIFT FLG 20 (0-99); LIPEMIA HEMOLYSIS FLAG 80 (0-99); MEAN CELL HEMOGLOBIN 27.9 pg (27.9-34.1); MEAN CELL HEMOGLOBIN CONCENTR. 31.9 g/dL (32.4-36.7); MEAN CELL VOLUME 87.6 fL (81.5-99.8); MEAN PLATELET VOLUME 11.1 fL (8.7-11.7); NRBC-AUTO% 0.7 % (0.0-0.2); PLATELET CLUMPS FLAG 10 (0-99); PLATELET COUNT 170 10^3/uL (150-400); PROTIME(PATIENT) 14.7 SEC (12.0-15.0); RED BLOOD CELL COUNT 3.15 10^6/uL (4.18-5.33); RED CELL DISTRIBUTION WIDTH 19.6 % (11.5-15.2)
[2016-12-20 06:24] LABS: ALANINE AMINOTRANSFERASE 27 IU/L (9-52); ALBUMIN 2.3 g/dL (3.5-5.0); ALKALINE PHOSPHATASE 101 IU/L (38-126); ANION GAP 10 mEq/L (8-16); ASPARTATE AMINOTRANSFERASE 53 IU/L (14-46); BILIRUBIN,TOTAL 0.5 mg/dL (0.1-1.4); CALCIUM 7.5 mg/dL (8.5-10.4); CARBON DIOXIDE 21 mEq/l (22-31); CHLORIDE 106 mEq/L (97-110); CREATININE 0.7 mg/dL (0.6-1.0); GLOMERULAR FILTRATION RATE > 60; GLUCOSE 134 mg/dL (70-100); MAGNESIUM 1.9 mg/dL (1.6-2.3); POTASSIUM 3.5 mEq/L (3.5-5.2); SODIUM 137 mEq/L (134-144); TOTAL PROTEIN 4.6 g/dL (6.3-8.2)
[2016-12-20] MEDS: HYDROmorphONE/DILAUDID 1 MG/ML INJ IVP PRN ×3 (06:26→17:40)
--- NOTE | 2016-12-20 06:41 | PDCONSULT ---
Welding Machine Tender Note: I reviewed Adriana's CT. The duodenum is partially obstructed with diffuse inflammation associated with adjacent peripancreatic fluid collections. The findings have the appearance of an inflammatory process rather than neoplastic. She may be forming a pseudocyst in the aditya-pancreatic tissue. The obstruction is not complete as there is contrast in the distal bowel, an improvement from her prior UGI. Her lipase remains elevated. I would continue bowel rest and TPN and manage her as if she had pancreatitis. I will defer the decision to proceed with stent placement to GI. I would not recommend surgical bypass at this time. Nile Shook MD, FACS
[2016-12-20 07:08] LABS: PLATELET ESTIMATE ADEQUATE (ADEQ)
[2016-12-20 07:09] LABS: POLYCHROMASIA 1+
[2016-12-20] MEDS: PANTOPRAZOLE SODIUM 40 MG in NS 100 ML IV SCH ×2 (09:32→21:53)
[2016-12-20] MEDS: CHOLECALCIFEROL VIT D3 1,000 UNITS TAB PO SCH (09:32)
[2016-12-20] MEDS: SENNOSIDES/DOCUSATE SODIUM TAB PO SCH ×2 (09:33→21:52)
--- NOTE | 2016-12-20 10:53 | HOSPPROG ---
Hospitalist Progress Note Assessment/Plan: 51 yo female, single mom to 13 yr old daughter, with metastatic lung cancer admitted with N/V, hematemesis, and abdominal pain. Small bowel obstruction secondary to duodenal narrowing- Symptoms improved with NG tube, but still with significant output. EGD showed small carloz manuel tear , non-bleeding gastric ulcer, and duodenal narrowing- ?tumor compression vs duodenitis secondary to pancreatitis. SBFT abnormal. CT 12/19 suggests complicated pancreatitis with fluid collections. It seems unlikely this will completely resolve and palliative duodenal stent has been offered. -Pt wishes to pursue stent, GI to place today. Pt assumes risk of bowel perf. -may warrant surgical intervention if stenting not successful in controlling her symptoms, note increased risk with recent chemo and extensive mets -Cont BID PPI -Cont NG tube for decompression -NPO, on TPN -will d/c atbx- BCx's negative, afebrile, no clear e/o infection Pancreatitis possibly secondary to metastatic dz - contributing to above. Remains NPO. Appreciate GI input. Lung cancer with extensive metastatic disease to kidneys, liver, brain - brain MRI with extensive, but stable mets. She has been on chemo since 06/2015. Oncology following, discussing treatment options. Tachycardia - this has persisted. Likely secondary to pancreatitis / SBO. No pleuritic chest symptoms, though high risk for PE and has not received pplx due to presenting hematemesis. -CTA neg for PE Coagulopathy 2/2 liver mets - Reversed with Vit K due to planned interventions -cont to follow daily INR, repeat Vit K as indicated Parasomnia - awoke on bathroom floor after lucid dreaming event 12/15. 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 lovenox held initially due to hematemesis, which has not recurred. consider initiating lovenox for pplx tomorrow, deferring today due to procedure. SCD's, ambulation Dispo - cont inpt, CM / SW consult, pt needs more support services. Palliative care consult requested. Pt aware nearing the end of life, wants more time with her daughter. Subjective: Pt continues to have abdominal pain. >500 cc's NG output overnight. No fevers. She has had a BM. No CP, SOB, cough persists. Objective: Vital Signs Temp Pulse Resp BP Pulse Ox 36.9 C 106 H 16 145/98 H 93 12/20/16 03:05 12/20/16 03:05 12/20/16 03:05 12/20/16 03:05 12/20/16 03:05 Microbiology 12/17/16 22:00 Urine Culture - Final Urine,Clean Catch Three [place] Types Laboratory Results 12/20/16 05:55 12/20/16 05:55 12/19/16 12/20/16 12/21/16 05:59 05:59 05:59 Intake Total 326 2681 Output Total 1425 2450 Balance -1099 231 PT 14.7 SEC (12.0-15.0) 12/20/16 05:55 INR 1.15 (0.83-1.16) 12/20/16 05:55 - Physical Exam Constitutional: chronically ill appearing Eyes: PERRL Ears, Nose, Mouth, Throat: moist mucous membranes Cardiovascular: regular rate and rhythym Respiratory: no respiratory distress, clear to auscultation Gastrointestinal: other (soft, mild distention, +TTP epigastrium and RUQ, no peritoneal signs) Skin: warm Musculoskeletal: full muscle strength Neurologic: AAOx3 Psychiatric: interacting appropriately ICD10 Worksheet Patient Problems: Problems Problem Status Onset Abdominal pain Acute Vomiting Acute Bone metastases Chronic Metastasis to kidney Chronic Metastatic cancer to brain Chronic Metastatic cancer to liver Chronic Metastatic lung cancer (metastasis from lung to other site) Chronic ~05/2015
[2016-12-20] MEDS ORDERED: IOPAMIDOL (ISOVUE 370) 100 ML BTL IV ONE (12:38)
--- NOTE | 2016-12-20 13:17 | ASMTCMCOM ---
CM Note CM Note Notes: Dr. Nixon said that she wants patient to have an in house Palliative cosullt. It was noted that patien had a Palliative consult with Eduin from [facility] but Dr. Nixon ordered for one to be done here today. Nick from Palliative here and will see patient this afternoon for the consult. C/M will continue to follow. Date Signed: 12/20/2016 01:16 PM Electronically Signed By:GUERRERO Corbett
[2016-12-20] MEDS ORDERED: HYDROmorphONE/DILAUDID 1 MG/ML INJ ONE (17:38)
--- NOTE | 2016-12-20 17:49 | PDGENHP ---
History & Physical Chief Complaint: Duodenal obstruction History of Present Illness: Metastatic lung cancer, gastric outlet obstruction Relevant Physical Exam: GEN: NAD. Lungs: CTA B. Cardiac: RRR. Abd: Soft, nt, nd
[2016-12-20] MEDS ORDERED: IOTHALAMATE MEG (CONRAY) 50 ML VIAL IV ONE (17:56)
--- NOTE | 2016-12-20 17:56 | PDANEPAE ---
ANE History of Present Illness poss gastric outlet obstruction, lung ca ANE Past Medical History - Cardiovascular History Hx Hypertension: No Hx Arrhythmias: No Hx Chest Pain: No Hx Coronary Artery / Peripheral Vascular Disease: No Hx CHF / Valvular Disease: No Hx Palpitations: No - Pulmonary History Hx COPD: No Hx Asthma/Reactive Airway Disease: Yes Hx Recent Upper Respiratory Infection: No Hx Oxygen in Use at Home: No Hx Sleep Apnea: No Sleep Apnea Screening Result - Last Documented: Negative Pulmonary History Comment: Stage IV lung cancer - Neurologic History Hx Cerebrovascular Accident: No Hx Seizures: No Hx Dementia: No - Endocrine History Hx Diabetes: No - Renal History Hx Renal Disorders: No - Liver History Hx Hepatic Disorders: Yes Hepatic History Comment: Liver metastases - Neurological & Psychiatric Hx Hx Neurological and Psychiatric Disorders: Yes Neurological / Psychiatric History Comment: Brain metastases - Cancer History Hx Cancer: Yes Cancer History Comment: Stage IV non-small cell lung cancer - Congenital Disorder History Hx Congenital Disorders: No - GI History Hx Gastrointestinal Disorders: No - Other Health History Other Health History: none - Chronic Pain History Chronic Pain: No - Surgical History Prior Surgeries: Lung biopsy, liver biopsy 06/16 ANE Review of Systems Review of Systems: - Exercise capacity Exercise capacity: >=4 METS - Systems Gastrointestinal: Reports: vomitting, abdominal distention ANE Patient History - Allergies Allergies/Adverse Reactions: Penicillins Allergy (Verified 12/07/15 17:30) Hives Sulfa (Sulfonamide Antibiotics) Allergy (Verified 12/07/15 17:30) Hives EBONY SEEDS Allergy (Uncoded 12/14/16 08:38) - Home Medications Home Medications: Acetaminophen [Tylenol 325mg (*)] 325 mg PO DAILY PRN 12/14/16 [Last Taken Unknown] Cholecalciferol Vit D3 [Vitamin D3 (*)] 1,000 units PO DAILY 12/14/16 [Last Taken Unknown] Cyclobenzaprine [Flexeril 10 MG (*)] 10 mg PO TID PRN 12/14/16 [Last Taken 12/12 09:00] Herbals/Supplements -Info Only 1 ea PO DAILY 12/14/16 [Last Taken Unknown] Potassium Chloride [Klor-Con] 20 meq PO BID 12/14/16 [Last Taken 12/11/16 09:00] oxyCODONE IR [Oxycodone Ir (*)] 5 mg PO Q6HRS PRN 12/14/16 [Last Taken 12/12/16 09:00] - NPO status NPO Status: no food or drink >8 hours NPO Since - Liquids (Date): 12/20/16 NPO Since - Liquids (Time): 00:00 NPO Since - Solids (Date): 12/20/16 NPO Since - Solids (Time): 00:00 - Anes Hx Anes Hx: no prior problems - Smoking Hx Smoking Status: Never smoked - Alcohol Use Alcohol Use: None - Family Anes Hx Family Hx Anesthesia Complications: None ANE Labs/Vital Signs - Labs Result Diagrams: 12/20/16 05:55 12/20/16 05:55 - Vital Signs Blood Pressure: 143/101 Heart Rate: 116 Respiratory Rate: 18 O2 Sat (%): 96 Height: 162.56 cm Weight: 63.911 kg ANE Physical Exam - Airway Mallampati Score: Class 2 Mouth exam: normal dental/mouth exam - Pulmonary Pulmonary: no respiratory distress - Cardiovascular Cardiovascular: regular rate and rhythym - ASA Status ASA Status: III ANE Anesthesia Plan Anesthesia Plan: general endotracheal anesthesia
[2016-12-20] MEDS ORDERED: MIDAZOLAM 2 MG/2 ML VIAL IVP ONE (18:00)
[2016-12-20] MEDS ORDERED: fentaNYL 100 MCG/2 ML INJ ONE (18:03)
[2016-12-20] MEDS ORDERED: ROCURONIUM 50 MG/5 ML VIAL ONE (18:03)
[2016-12-20] MEDS ORDERED: LIDOCAINE 2% 5 ML SDV ONE (18:03)
[2016-12-20] MEDS ORDERED: PROPOFOL 200 MG/20 ML VIAL ONE (18:04)
[2016-12-20] MEDS ORDERED: MIDAZOLAM 2 MG/2 ML VIAL ONE (18:07)
--- NOTE | 2016-12-20 18:32 | SOAPPROG ---
MYRIAM Progress Note Assessment/Plan: Assessment:Plan: 12/18/16 13:28 1) GOO - for duodenal stent either tomorrow or Monday once stent acquired. 2) met lung CA - as per oncology Pt feeling well with NGT decompression If stent not successful, then surgery 12/19/16 14:57 as above pt with GOO in second/third portion of duodenum likely form metastatic dz CT today reviewed with radiologist contrast does get by into fourth portion duodenum 1) GOO - stent not in today, for attempt at stenting tomorrow when stents arrive in hospital 2) met lung ca - as per oncology 12/20/16 18:28 present for EGD that just finished her duodenum is open at least 12-15 cm. the therapeutic scope passes easily beyond the narrowing and it is 12.5 mm in diameter stents usually dilates to about 15 mm in tight strictures we decided not to place the stent given the EGD findings NGT is removed during procedure will leave out for now and see if she can tolerate clear liquids can use Reglan if gastric motility decreased will follow Objective: Vital Signs Temp Pulse Resp BP Pulse Ox 36.5 C 110 H 20 145/96 H 96 12/20/16 18:02 12/20/16 18:02 12/20/16 18:02 12/20/16 18:02 12/20/16 18:02 Microbiology 12/17/16 22:00 Urine Culture - Final Urine,Clean Catch Three [place] Types Laboratory Results 12/20/16 05:55 12/20/16 05:55 12/19/16 12/20/16 12/21/16 05:59 05:59 05:59 Intake Total 326 2681 785 Output Total 1425 2450 400 Balance -1099 231 385 PT 14.7 SEC (12.0-15.0) 12/20/16 05:55 INR 1.15 (0.83-1.16) 12/20/16 05:55 ICD10 Worksheet Patient Problems: Problems Problem Status Onset Abdominal pain Acute Vomiting Acute Bone metastases Chronic Metastasis to kidney Chronic Metastatic cancer to brain Chronic Metastatic cancer to liver Chronic Metastatic lung cancer (metastasis from lung to other site) Chronic ~05/2015
--- NOTE | 2016-12-20 18:38 | GIREPORT ---
[facility] Surgical Services - Endoscopy Department Patient Name: Adriana Anderson Procedure Date: 12/20/2016 5:52 PM Patient Type: Inpatient Attending / ER Physician: Alejandro Schmitt MD Procedure: Upper GI endoscopy Indications: Epigastric abdominal pain, For therapy of tumor of the GI tract. Suspec mirella gastric outlet obstruction related possible tumor infiltration of the pancreas/ duodenum. Providers: Alejandro Schmitt MD Medicines: General Anesthesia Complications: No immediate complications. Findings: The examined esophagus was normal. Localized mild inflammation characterized by erosions and erythema was found in the gastric antrum. Diffuse moderately congested mucosa was found in the first portion of t he duodenum and along the duodenal sweep. The 2T-160 endoscope with a diam eter of 12.6mm easily passed across the sweep and into the 2nd portion of th e duodenum. Although the sweep is edematous, no obstruction is seen on to day's exam. Estimated Blood Loss: Estimated blood loss: none. Post Op Diagnosis: - Normal esophagus. - Gastritis. - Congested duodenal mucosa without obstruction. - No specimens collected. Recommendation: - Return patient to hospital banks for ongoing care. - NG tube removed. Would not replace at this point. Trial of clears wit hout NG tube is appropriate. Consider a trial of Reglan 10mg IV every 8 hour s if nausea/vomiting and/or gastric distension returns. - Clear liquid diet. - Continue present medications. - Thank you for allowing me to participate in the care of your patient. Attending Participation: I personally performed the entire procedure. Alejandro Schmitt MD Alejandro Schmitt MD 12/20/2016 6:37:31 PM Number of Addenda: 0 Note Initiated On: 12/20/2016 5:52 PM Total Procedure Duration Time 0 hours 6 minutes 5 seconds [email or web address]
[2016-12-20] MEDS ORDERED: NALOXONE HCL 0.4 MG/ML INJ IVP PRN (18:50)
[2016-12-20] MEDS ORDERED: ONDANSETRON 4 MG/2 ML VIAL IVP PRN (18:50)
[2016-12-20] MEDS ORDERED: fentaNYL 100 MCG/2 ML INJ IVP PRN (18:50)
[2016-12-20] MEDS ORDERED: ALBUTEROL 3 ML DEYVIAL IH PRN (18:50)
--- NOTE | 2016-12-20 18:52 | POSTANESTH ---
Post Anesthetic Evaluation Cardiovascular Status: Normal, Stable Respiratory Status: Other, See Comment Level of Consciousness/Mental Status: Can Participate in Eval Pain Control: Adequate, Prn Tx Ordered Nausea/Vomiting Control: Adequate, Prn Tx Ordered Complications Possibly Related to Anesthesia: None Noted (NOTED COUGH, ALBUTEROL GIVEN, vss)
[2016-12-20] MEDS ORDERED: ALBUTEROL 3 ML DEYVIAL ONE (18:54)
[2016-12-20] MEDS ORDERED: FUROSEMIDE 20 MG/2 ML VIAL IVP ONE (19:28)
[2016-12-20] MEDS ORDERED: POTASSIUM CL 20 MEQ TAB PO ONE (19:28)
[2016-12-20] MEDS: IPRATROPIUM/ALBUTEROL 3 ML DEYVIAL IH SCH ×2 (19:37→23:19)
[2016-12-20] MEDS: TPN 1 EA BAG IV SCH (21:53)
[2016-12-21] MEDS: HYDROmorphONE/DILAUDID 1 MG/ML INJ IVP PRN ×3 (02:18→12:13)
[2016-12-21] MEDS: IPRATROPIUM/ALBUTEROL 3 ML DEYVIAL IH SCH ×2 (04:58→10:55)
[2016-12-21 05:34] LABS: INR 1.13 (0.83-1.16); PROTIME(PATIENT) 14.4 SEC (12.0-15.0)
[2016-12-21 05:35] LABS: APTT 36.2 SEC (23.0-38.0)
[2016-12-21 05:37] LABS: ABSOLUTE NRBC COUNT 0.15 10^3/uL (0-0.01); ADD DIFF? YES; ADD MORPH? NO; ADD SCAN? NO; ATYPICAL LYMPHOCYTE FLAG 90 (0-99); FRAGMENT RBC FLAG 20 (0-99); HEMATOCRIT 23.1 % (38.0-47.0); HEMOGLOBIN 7.4 g/dL (12.6-16.3); LEFT SHIFT FLG 20 (0-99); LIPEMIA HEMOLYSIS FLAG 80 (0-99); MEAN CELL HEMOGLOBIN 28.4 pg (27.9-34.1); MEAN CELL VOLUME 88.5 fL (81.5-99.8); NRBC-AUTO% 0.8 % (0.0-0.2); PLATELET CLUMPS FLAG 10 (0-99); PLATELET COUNT 187 10^3/uL (150-400); RED BLOOD CELL COUNT 2.61 10^6/uL (4.18-5.33); RED CELL DISTRIBUTION WIDTH 19.9 % (11.5-15.2)
[2016-12-21 05:43] LABS: ALANINE AMINOTRANSFERASE 24 IU/L (9-52); ALBUMIN 2.2 g/dL (3.5-5.0); ALKALINE PHOSPHATASE 108 IU/L (38-126); ANION GAP 8 mEq/L (8-16); ASPARTATE AMINOTRANSFERASE 52 IU/L (14-46); BILIRUBIN,TOTAL 0.5 mg/dL (0.1-1.4); CARBON DIOXIDE 24 mEq/l (22-31); CHLORIDE 104 mEq/L (97-110); CREATININE 0.8 mg/dL (0.6-1.0); GLOMERULAR FILTRATION RATE > 60; GLUCOSE 141 mg/dL (70-100); MAGNESIUM 2.3 mg/dL (1.6-2.3); SODIUM 136 mEq/L (134-144)
[2016-12-21 07:20] LABS: PLATELET ESTIMATE ADEQUATE (ADEQ)
[2016-12-21 07:22] LABS: ECHINOCYTES 1+; MICROCYTES 1+; POLYCHROMASIA 1+
[2016-12-21] MEDS: PANTOPRAZOLE SODIUM 40 MG in NS 100 ML IV SCH (09:43)
[2016-12-21] MEDS: SENNOSIDES/DOCUSATE SODIUM TAB PO SCH (10:05)
[2016-12-21] MEDS: CHOLECALCIFEROL VIT D3 1,000 UNITS TAB PO SCH (10:05)
--- NOTE | 2016-12-21 11:29 | SOAPPROG ---
MYRIAM Progress Note Assessment/Plan: Assessment:Plan: 12/20/16 18:28 present for EGD that just finished her duodenum is open at least 12-15 cm. the therapeutic scope passes easily beyond the narrowing and it is 12.5 mm in diameter stents usually dilates to about 15 mm in tight strictures we decided not to place the stent given the EGD findings NGT is removed during procedure will leave out for now and see if she can tolerate clear liquids can use Reglan if gastric motility decreased will follow 12/21/16 11:26 as above, EGD with open duodenum, no stent placed 1) GOO - resolving, likely from pancreatitis 2) Diet - tolerating clears, will try full liquids. If having nausea can consider motility agent such as reglan will follow Subjective: cc- GOO now resolving, metastatic lung cancer she is happy to be able to drink water seems to be tolerating well no sig pain, no vomiting Objective: Vital Signs Temp Pulse Resp BP Pulse Ox 37.1 C 106 H 15 127/86 H 95 12/21/16 08:55 12/21/16 10:55 12/21/16 10:55 12/21/16 08:55 12/21/16 10:55 Laboratory Results 12/21/16 05:05 12/21/16 05:05 12/20/16 12/21/16 12/22/16 05:59 05:59 05:59 Intake Total 2681 2398 Output Total 2450 600 Balance 231 1798 PT 14.4 SEC (12.0-15.0) 12/21/16 05:05 INR 1.13 (0.83-1.16) 12/21/16 05:05 A+O coarse BS S1S2, RRR +BS, soft, routing equipment tender no rebound ICD10 Worksheet Patient Problems: Problems Problem Status Onset Abdominal pain Acute Vomiting Acute Bone metastases Chronic Metastasis to kidney Chronic Metastatic cancer to brain Chronic Metastatic cancer to liver Chronic Metastatic lung cancer (metastasis from lung to other site) Chronic ~05/2015
[2016-12-21] MEDS ORDERED: HYDROmorphONE/DILAUDID 2 MG TAB PO PRN (13:06)
--- NOTE | 2016-12-21 14:57 | PDPCPN ---
Palliative Care Progress Note Assessment/Plan: Referring provider: Dr Nixon Reason for consult: Complex medical decision making Symptom control HPI: Adriana Anderson is a 51 yo female with metastatic lung cancer admitted to the hospital for nausea/vomiting 2/2 gastric outlet obstruction and pancreatitis. Follows with Dr Mckeon at [facility] undergoing treatment. S/p EGD x2 with improvement in obstruction now being supportive with supportive care including TPN. Palliative care consulted for complex medical decision making. Met with Adriana and her father Frantz at the bedside this afternoon. Adriana shared her oncology story over the past 18 months. She was doing pretty well and her usual physical health up until October when she began having more difficulties with symptoms and weakness. She has noticed a decline in her energy level as well as increase in weakness and fatigue. She has not been eating as well since october and this has contributed. She worries about continuing to decline and becoming more dependent. We briefly spoke about hospice care and when someone might be interested in hospice. Adriana is hoping she can live longer to be with her daughter but also worries about a continued decline. Discussed pain management with the IV working for her pain but only lasting 2 hours. Pain is mostly abdomen but also back at times. Assessment: Physical: - Pain: abdominal pain - added dilaudid 1-2 mg PO Q4hr PRN- will last longer and hopefully provide more relief than just IV - IV dilaudid PRN for severe acute pain - Nausea: resolved - tolerating clear liquid diet - zofran or compazine PRN - reglan for more motility - constipation - at risk with opiates - senna and colace daily while on opiates Emotional/psychological: has a lot of support from friends and family Advanced Care Planning: Is patient decisional?: Yes Code Status: Full MD POA: Teri is MDPOA. Plan: Hopeful to recover fully from acute issues and potentially continue treatment with oncology. Understands disease is terminal but also hoping for more time. Subjective: my pain is 7/10 in abdomen Objective: Social History: from . Has a 13 year daughter Sarina. 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 Enjoys being active in the outdoors, cooking, and reading. Medication list reviewed ROS: General: fatigue, weakness ENT: negative Resp: dyspnea GI: abdominal pain : negative MS: negative Skin: negative Neuro: negative Psych: negative Functional assessment: PPS: 60% Functional status: needs minimal assistance with ADLs Vital Signs Temp Pulse Resp BP Pulse Ox 36.7 C 105 H 16 123/83 H 94 12/21/16 11:32 12/21/16 11:32 12/21/16 11:32 12/21/16 11:32 12/21/16 11:32 Laboratory Results 12/21/16 05:05 12/21/16 05:05 12/20/16 12/21/16 12/22/16 05:59 05:59 05:59 Intake Total 2681 2398 Output Total 2450 600 300 Balance 231 1798 -300 PT 14.4 SEC (12.0-15.0) 12/21/16 05:05 INR 1.13 (0.83-1.16) 12/21/16 05:05 Physical Exam - Physical Exam General Appearance: alert, no apparent distress Respiratory: No respiratory distress, No accessory muscle use Skin: normal color, warm/dry Extremities: No pedal edema Neuro/Psych: alert, oriented x 3 ICD10 Worksheet Patient Problems: Problems Problem Status Onset Abdominal pain Acute Palliative care encounter Acute Vomiting Acute Bone metastases Chronic Metastasis to kidney Chronic Metastatic cancer to brain Chronic Metastatic cancer to liver Chronic Metastatic lung cancer (metastasis from lung to other site) Chronic ~05/2015 - ICD10 Problem Qualifiers (1) Palliative care encounter
--- NOTE | 2016-12-21 15:00 | HOSPPROG ---
Hospitalist Progress Note Assessment/Plan: * GOO due to duodenal narrowing - suspect pancreatitis with inflammation causing obstruction -repeat EGD - obstruction now resolving - no need for stent -advance diet clear liquids * Acute pancreatitis - due to pancreatic mets -improving as duodenum now open -gallbladder looks concerning on MRCP -check HIDA * Metastatic lung cancer - brain/liver/kidney * Nutrition -stop TPN when taking adequate PO * Coagulopathy due to liver mets * UGIB -EGD with MW tear and non-bleeding gastric ulcer -change Protonix to PO * ABL anemia - follow Subjective: Has not yet tried PO Objective: Vital Signs Temp Pulse Resp BP Pulse Ox 36.7 C 105 H 16 123/83 H 94 12/21/16 11:32 12/21/16 11:32 12/21/16 11:32 12/21/16 11:32 12/21/16 11:32 Laboratory Results 12/21/16 05:05 12/21/16 05:05 12/20/16 12/21/16 12/22/16 05:59 05:59 05:59 Intake Total 2681 2398 Output Total 2450 600 300 Balance 231 1798 -300 PT 14.4 SEC (12.0-15.0) 12/21/16 05:05 INR 1.13 (0.83-1.16) 12/21/16 05:05 Using IV dilaudid for pain control CXR viewed, my personal interpretation is - no PNA MRCP - aditya-cholecystic fluid - Physical Exam Constitutional: no apparent distress, appears nourished, not in pain Cardiovascular: regular rate and rhythym, no murmur, rub, or gallop Respiratory: no respiratory distress, no rales or rhonchi, clear to auscultation Gastrointestinal: normoactive bowel sounds, soft, non-tender abdomen, no palpable masses Skin: no rashes or abrasions, no fluctuance, no induration Neurologic: AAOx3, sensation intact bilaterally Psychiatric: interacting appropriately, not anxious, not encephalopathic, thought process linear ICD10 Worksheet Patient Problems: Problems Problem Status Onset Abdominal pain Acute Vomiting Acute Bone metastases Chronic Metastasis to kidney Chronic Metastatic cancer to brain Chronic Metastatic cancer to liver Chronic Metastatic lung cancer (metastasis from lung to other site) Chronic ~05/2015
[2016-12-21] MEDS: HYDROmorphONE/DILAUDID 2 MG TAB PO PRN ×4 (15:14→22:29)
--- NOTE | 2016-12-21 15:15 | SOAPPROG ---
SOAP Progress Note Assessment/Plan: Assessment: 1) Metastatic NSC lung cancer 2) Gastric outlet obstruction likely due to pancreatitis. 3) Pancreatitis secondary to metastatic involvement from #1 Plan: Adriana does not appear to have a mechanical obstruction. She has evidence of pancreatitis with pseudocyst. Overall her pancreatitis is responding to conservative management. Continue current management / TPN / Bowel rest. Will add Amylase / Lipase to AM labs for tomorrow. ? metastatic tumor implant as the cause of her pancreatitis. Appreciate GI and surgery involvement. Chemotherapy treatment on hold. Her anemia is worse today, but minimally symptomatic. Will consider PRBC transfusion if continues to decline, or new symptoms. Above d/w patient and family 12/21/16 15:17 Subjective: No obstruction on EGD. No need for stent. Objective: Vital Signs Temp Pulse Resp BP Pulse Ox 36.7 C 105 H 16 123/83 H 94 12/21/16 11:32 12/21/16 11:32 12/21/16 11:32 12/21/16 11:32 12/21/16 11:32 Laboratory Results 12/21/16 05:05 12/21/16 05:05 12/20/16 12/21/16 12/22/16 05:59 05:59 05:59 Intake Total 2681 2398 Output Total 2450 600 300 Balance 231 1798 -300 PT 14.4 SEC (12.0-15.0) 12/21/16 05:05 INR 1.13 (0.83-1.16) 12/21/16 05:05 - Time Spent With Patient Time Spent With Patient: 25 minutes Physical Exam - Physical Exam General Appearance: alert, no apparent distress EENT: PERRL/EOMI Abdomen: other (soft, mild epigastric tenderness with no gaurding or rebound) Neuro/Psych: alert, normal mood/affect ICD10 Worksheet Patient Problems: Problems Problem Status Onset Abdominal pain Acute Palliative care encounter Acute Vomiting Acute Bone metastases Chronic Metastasis to kidney Chronic Metastatic cancer to brain Chronic Metastatic cancer to liver Chronic Metastatic lung cancer (metastasis from lung to other site) Chronic ~05/2015
[2016-12-21] MEDS: TPN 1 EA BAG IV SCH (19:56)
[2016-12-21] MEDS: PANTOPRAZOLE SODIUM 40 MG TAB PO SCH (19:56)
[2016-12-22] MEDS: ACETAMINOPHEN 325 MG TAB PO PRN (04:28)
[2016-12-22 05:14] LABS: % IMMATURE GRANULYOCYTES 1.7 % (0.0-1.1); ABSOLUTE IMMATURE GRANULOCYTES 0.28 10^3/uL (0.00-0.10); ABSOLUTE NRBC COUNT 0.13 10^3/uL (0-0.01); ADD DIFF? NO; ADD MORPH? NO; ADD SCAN? NO; ATYPICAL LYMPHOCYTE FLAG 90 (0-99); FRAGMENT RBC FLAG 20 (0-99); HEMATOCRIT 27.2 % (38.0-47.0); HEMOGLOBIN 8.6 g/dL (12.6-16.3); LEFT SHIFT FLG 10 (0-99); LIPEMIA HEMOLYSIS FLAG 80 (0-99); MEAN CELL HEMOGLOBIN CONCENTR. 31.6 g/dL (32.4-36.7); MEAN CELL VOLUME 88.6 fL (81.5-99.8); MEAN PLATELET VOLUME 10.9 fL (8.7-11.7); NRBC-AUTO% 0.8 % (0.0-0.2); PLATELET CLUMPS FLAG 20 (0-99); PLATELET COUNT 183 10^3/uL (150-400); RED BLOOD CELL COUNT 3.07 10^6/uL (4.18-5.33); RED CELL DISTRIBUTION WIDTH 19.9 % (11.5-15.2)
[2016-12-22 05:37] LABS: AMYLASE 406 IU/L (30-110); ANION GAP 7 mEq/L (8-16); CALCIUM 7.9 mg/dL (8.5-10.4); CARBON DIOXIDE 26 mEq/l (22-31); CHLORIDE 100 mEq/L (97-110); CREATININE 0.7 mg/dL (0.6-1.0); GLOMERULAR FILTRATION RATE > 60; GLUCOSE 115 mg/dL (70-100); POTASSIUM 4.5 mEq/L (3.5-5.2); SODIUM 133 mEq/L (134-144)
[2016-12-22] MEDS: HYDROmorphONE/DILAUDID 1 MG/ML INJ IVP PRN ×2 (11:35→20:14)
[2016-12-22] MEDS: HYDROmorphONE/DILAUDID 2 MG TAB PO PRN ×3 (11:53→22:03)
[2016-12-22] MEDS: PANTOPRAZOLE SODIUM 40 MG TAB PO SCH ×2 (11:53→22:00)
[2016-12-22] MEDS: CHOLECALCIFEROL VIT D3 1,000 UNITS TAB PO SCH (11:53)
--- NOTE | 2016-12-22 14:34 | HOSPPROG ---
Hospitalist Progress Note Assessment/Plan: New patient encounter * GOO due to duodenal narrowing - suspect pancreatitis with inflammation causing obstruction -repeat EGD - obstruction now resolving - no need for stent * Acute pancreatitis - due to pancreatic mets -improving as duodenum now open -gallbladder looks concerning on MRCP -check HIDA, but pain is not RUQ pain * Metastatic lung cancer - brain/liver/kidney * Nutrition -stop TPN when taking adequate PO * Coagulopathy due to liver mets * UGIB -EGD with MW tear and non-bleeding gastric ulcer -change Protonix to PO * ABL anemia - follow Plan: -Cont TPN -cont FLD, woud not advance further until abd symptoms are better. Repeat Lipase is pending -She does not have RUQ pain or murphys's, would hold off on any surgical Allyson interventions w/o clinical symptoms -Repeat labs in a.m. Subjective: still with mid and left sided abd pain. No RUQ pain. Objective: Vital Signs Temp Pulse Resp BP Pulse Ox 36.7 C 104 H 14 123/89 H 95 12/22/16 12:00 12/22/16 12:00 12/22/16 12:00 12/22/16 12:00 12/22/16 12:00 Laboratory Results 12/22/16 04:30 12/22/16 04:30 12/21/16 12/22/16 12/23/16 05:59 05:59 05:59 Intake Total 2398 2543 Output Total 600 900 Balance 1798 1643 PT 14.4 SEC (12.0-15.0) 12/21/16 05:05 INR 1.13 (0.83-1.16) 12/21/16 05:05 - Physical Exam Constitutional: chronically ill appearing Eyes: PERRL, EOMI Ears, Nose, Mouth, Throat: moist mucous membranes Cardiovascular: regular rate and rhythym, No JVD Respiratory: no respiratory distress, clear to auscultation Gastrointestinal: tenderness (mid - left quadrant TTP, no R/G) Neurologic: AAOx3 Psychiatric: interacting appropriately, not anxious, not encephalopathic, No encephalopathic ICD10 Worksheet Patient Problems: Problems Problem Status Onset Abdominal pain Acute Palliative care encounter Acute Vomiting Acute Bone metastases Chronic Metastasis to kidney Chronic Metastatic cancer to brain Chronic Metastatic cancer to liver Chronic Metastatic lung cancer (metastasis from lung to other site) Chronic ~05/2015
--- NOTE | 2016-12-22 16:38 | SOAPPROG ---
MYRIAM Progress Note Assessment/Plan: Assessment: 1) Metastatic NSC lung cancer 2) Gastric outlet obstruction likely due to pancreatitis with inflammatory cyst. 3) Pancreatitis secondary to metastatic involvement from #1 Plan: I reviewed Adriana's films with radiology today. Adriana does not have a mechanical obstruction. She has evidence of pancreatitis with pseudocyst. There is narrowing of the duodenum secondary to inflammation and a cyst. Overall her pancreatitis is responding to conservative management. Continue current management / TPN / Bowel rest. I agree with Dr. Dillon that we need to be conservative in advancing her diet. Metastatic tumor implant is assumed to be the cause of her pancreatitis. Anemia stable to slightly improved. No current indication for transfusion. Above d/w patient. Her questions were answered. Case d/w Dr. Dillon. 12/21/16 15:17 12/22/16 16:34 12/22/16 16:37 Subjective: Still with epigastric abdominal pain. Denies nausea. Objective: Vital Signs Temp Pulse Resp BP Pulse Ox 36.7 C 104 H 14 123/89 H 95 12/22/16 12:00 12/22/16 12:00 12/22/16 12:00 12/22/16 12:00 12/22/16 12:00 Laboratory Results 12/22/16 04:30 12/22/16 04:30 12/21/16 12/22/16 12/23/16 05:59 05:59 05:59 Intake Total 2398 2543 Output Total 600 900 500 Balance 1798 1643 -500 PT 14.4 SEC (12.0-15.0) 12/21/16 05:05 INR 1.13 (0.83-1.16) 12/21/16 05:05 Physical Exam - Physical Exam General Appearance: alert, no apparent distress EENT: PERRL/EOMI Cardiac/Chest: regular rate, rhythm Abdomen: other (Epigastric tenderness present. No mass, no gaurding. No rebound. ) Neuro/Psych: normal mood/affect ICD10 Worksheet Patient Problems: Problems Problem Status Onset Abdominal pain Acute Palliative care encounter Acute Vomiting Acute Bone metastases Chronic Metastasis to kidney Chronic Metastatic cancer to brain Chronic Metastatic cancer to liver Chronic Metastatic lung cancer (metastasis from lung to other site) Chronic ~05/2015
--- NOTE | 2016-12-22 19:10 | SOAPPROG ---
MYRIAM Progress Note Assessment/Plan: Assessment:Plan: 12/20/16 18:28 present for EGD that just finished her duodenum is open at least 12-15 cm. the therapeutic scope passes easily beyond the narrowing and it is 12.5 mm in diameter stents usually dilates to about 15 mm in tight strictures we decided not to place the stent given the EGD findings NGT is removed during procedure will leave out for now and see if she can tolerate clear liquids can use Reglan if gastric motility decreased 12/21/16 11:26 as above, EGD with open duodenum, no stent placed 1) GOO - resolving, likely from pancreatitis 2) Diet - tolerating clears, will try full liquids. If having nausea can consider motility agent such as reglan 12/22/16 19:04 1) Pancreatitis - resolving slowly, likely from her mets, slowly advancing diet. I would like to try a low fat low protein tomorrow if her exam is not worse and if Lipase hasn't increased significantly 2) GOO - from her pancreatitis, now open will follow 12/22/16 19:12 Subjective: CC- pancreatitis from lung met, GOO from pancreatitis resolving she is feeling OK, still with pain, tolerated liquids well and had a little apple sauce Objective: Vital Signs Temp Pulse Resp BP Pulse Ox 36.6 C 113 H 17 130/93 H 96 12/22/16 16:00 12/22/16 16:00 12/22/16 16:00 12/22/16 16:00 12/22/16 16:00 Microbiology 12/17/16 14:20 Blood Culture - Final Blood 12/17/16 14:15 Blood Culture - Final Blood Laboratory Results 12/22/16 04:30 12/22/16 04:30 12/21/16 12/22/16 12/23/16 05:59 05:59 05:59 Intake Total 2398 2543 Output Total 600 900 500 Balance 1798 1643 -500 PT 14.4 SEC (12.0-15.0) 12/21/16 05:05 INR 1.13 (0.83-1.16) 12/21/16 05:05 Alert clear s1s2 +BS, soft tender epi no r/g Laboratory Tests 12/18/16 12/19/16 12/22/16 04:45 05:36 04:30 Amylase 406 H Lipase 695 H 972 H 1472 H ICD10 Worksheet Patient Problems: Problems Problem Status Onset Abdominal pain Acute Palliative care encounter Acute Vomiting Acute Bone metastases Chronic Metastasis to kidney Chronic Metastatic cancer to brain Chronic Metastatic cancer to liver Chronic Metastatic lung cancer (metastasis from lung to other site) Chronic ~05/2015
[2016-12-22] MEDS: TPN 1 EA BAG IV SCH (22:05)
[2016-12-23] MEDS: HYDROmorphONE/DILAUDID 2 MG TAB PO PRN ×4 (03:00→19:30)
[2016-12-23 03:46] LABS: ANION GAP 8 mEq/L (8-16); CALCIUM 7.8 mg/dL (8.5-10.4); CARBON DIOXIDE 26 mEq/l (22-31); CHLORIDE 101 mEq/L (97-110); CREATININE 0.6 mg/dL (0.6-1.0); GLOMERULAR FILTRATION RATE > 60; GLUCOSE 127 mg/dL (70-100); MAGNESIUM 2.2 mg/dL (1.6-2.3); POTASSIUM 4.4 mEq/L (3.5-5.2); SODIUM 135 mEq/L (134-144)
[2016-12-23] MEDS: PANTOPRAZOLE SODIUM 40 MG TAB PO SCH ×2 (10:07→19:56)
[2016-12-23] MEDS: CHOLECALCIFEROL VIT D3 1,000 UNITS TAB PO SCH (10:07)
--- NOTE | 2016-12-23 10:27 | HOSPPROG ---
Hospitalist Progress Note Assessment/Plan: 51 yo F with hx of met lung cancer with mets to pancreas with pancreatits and GOO doing better overall with conservative mgmt * GOO due to duodenal narrowing - suspect pancreatitis with inflammation causing obstruction -repeat EGD - obstruction now resolving - no need for stent * Acute pancreatitis - due to pancreatic mets -improving as duodenum now open -GI following. Lipase and clinical exam unchanged compared to yesterday. Per their note, I will advance diet to low Fat Protein. -Cont TPN until adequate PO intake which she has not yet reached. * GB-Dyskinesia: per HIDA and reduced EF. No clinical symptoms. conservative mgmt * Metastatic lung cancer - brain/liver/kidney * Nutrition -stop TPN when taking adequate PO * Coagulopathy due to liver mets * UGIB -EGD with MW tear and non-bleeding gastric ulcer -change Protonix to PO * ABL anemia - follow Subjective: Still with some abd pain but minimal and unchanged. She wants to advance her diet. Objective: Vital Signs Temp Pulse Resp BP Pulse Ox 36.8 C 104 H 17 154/89 H 93 12/23/16 07:35 12/23/16 07:35 12/23/16 07:35 12/23/16 07:35 12/23/16 07:35 Microbiology 12/17/16 14:20 Blood Culture - Final Blood 12/17/16 14:15 Blood Culture - Final Blood Laboratory Results 12/22/16 04:30 12/23/16 03:10 12/22/16 12/23/16 12/24/16 05:59 05:59 05:59 Intake Total 2543 350 600 Output Total 900 1100 200 Balance 1643 -750 400 PT 14.4 SEC (12.0-15.0) 12/21/16 05:05 INR 1.13 (0.83-1.16) 12/21/16 05:05 - Physical Exam Constitutional: no apparent distress, chronically ill appearing Eyes: PERRL, EOMI Ears, Nose, Mouth, Throat: moist mucous membranes, hearing normal, ears appear normal Cardiovascular: regular rate and rhythym, No JVD, No edema Respiratory: no respiratory distress, clear to auscultation Gastrointestinal: tenderness (RLQ tenderness, mild mid epigastric tenderness. LUQ mild tenderness) Skin: warm Neurologic: AAOx3 Psychiatric: interacting appropriately, not anxious ICD10 Worksheet Patient Problems: Problems Problem Status Onset Abdominal pain Acute Palliative care encounter Acute Vomiting Acute Bone metastases Chronic Metastasis to kidney Chronic Metastatic cancer to brain Chronic Metastatic cancer to liver Chronic Metastatic lung cancer (metastasis from lung to other site) Chronic ~05/2015
--- NOTE | 2016-12-23 12:15 | SOAPPROG ---
SOAP Progress Note Assessment/Plan: Assessment: 1) Metastatic NSC lung cancer 2) Gastric outlet obstruction likely due to pancreatitis with inflammatory cyst. 3) Pancreatitis secondary to metastatic involvement from #1 Plan: I reviewed Adriana's films with radiology. Adriana does not have a mechanical obstruction. She has evidence of pancreatitis with pseudocyst. There is narrowing of the duodenum secondary to inflammation and a cyst. Overall her pancreatitis is responding to conservative management. Continue current management / TPN / Bowel rest. She is doing better today and her diet has been advanced. So far she is tolerating this. Her Lipase level remains elevated, but clinically she is improving. Metastatic tumor implant is assumed to be the cause of her pancreatitis. Anemia stable to slightly improved. No current indication for transfusion. Above d/w patient. Her questions were answered. 12/21/16 15:17 12/22/16 16:34 12/22/16 16:37 12/23/16 12:12 12/23/16 12:13 Subjective: Feels better. Denies epigastric pain today. Diet has been advanced. Objective: Vital Signs Temp Pulse Resp BP Pulse Ox 36.8 C 104 H 17 154/89 H 93 12/23/16 07:35 12/23/16 07:35 12/23/16 07:35 12/23/16 07:35 12/23/16 07:35 Microbiology 12/17/16 14:20 Blood Culture - Final Blood 12/17/16 14:15 Blood Culture - Final Blood Laboratory Results 12/22/16 04:30 12/23/16 03:10 12/22/16 12/23/16 12/24/16 05:59 05:59 05:59 Intake Total 2543 350 600 Output Total 900 1100 200 Balance 1643 -750 400 PT 14.4 SEC (12.0-15.0) 12/21/16 05:05 INR 1.13 (0.83-1.16) 12/21/16 05:05 - Time Spent With Patient Time Spent With Patient: 20 minutes Physical Exam - Physical Exam General Appearance: alert, no apparent distress EENT: PERRL/EOMI Cardiac/Chest: regular rate, rhythm Abdomen: non-tender, soft, other (No epigastric tenderness today.) Neuro/Psych: alert, normal mood/affect ICD10 Worksheet Patient Problems: Problems Problem Status Onset Abdominal pain Acute Palliative care encounter Acute Vomiting Acute Bone metastases Chronic Metastasis to kidney Chronic Metastatic cancer to brain Chronic Metastatic cancer to liver Chronic Metastatic lung cancer (metastasis from lung to other site) Chronic ~05/2015
--- NOTE | 2016-12-23 12:59 | PDPCPN ---
Palliative Care Progress Note Assessment/Plan: HPI: Adriana Anderson is a 51 yo female with metastatic lung cancer admitted to the hospital for nausea/vomiting 2/2 gastric outlet obstruction and pancreatitis. Follows with Dr Mckeon at [facility] undergoing treatment. S/p EGD x2 with improvement in obstruction now being supportive with supportive care including TPN. Palliative care consulted for complex medical decision making. Followed up wtgage Wright today. She is feeling better and improving. States the oral dilaudid works well to control her pain and is requesting it when needed so the pain is not intolerable. She feels she has a lot of support for her and her daughter and knows PC is available if needed to speak further with her daughter if needed. Assessment: Physical: - Pain: abdominal pain - dilaudid 1-2 mg PO Q4hr PRN- will last longer and hopefully provide more relief than just IV - IV dilaudid PRN for severe acute pain - Nausea: resolved - tolerating clear liquid diet - zofran or compazine PRN - reglan for more motility - constipation - at risk with opiates - senna and colace daily while on opiates Emotional/psychological: has a lot of support from friends and family Advanced Care Planning: Is patient decisional?: Yes Code Status: Full MD POA: Maura Vaughn is MDPOA. Plan: Improving symptom newman. [facility] Subjective: I'm feeling much better Objective: Vital Signs Temp Pulse Resp BP Pulse Ox 36.8 C 108 H 15 134/93 H 93 12/23/16 12:35 12/23/16 12:35 12/23/16 12:35 12/23/16 12:35 12/23/16 12:35 Microbiology 12/17/16 14:20 Blood Culture - Final Blood 12/17/16 14:15 Blood Culture - Final Blood Laboratory Results 12/22/16 04:30 12/23/16 03:10 12/22/16 12/23/16 12/24/16 05:59 05:59 05:59 Intake Total 2543 350 600 Output Total 900 1100 200 Balance 1643 -750 400 PT 14.4 SEC (12.0-15.0) 12/21/16 05:05 INR 1.13 (0.83-1.16) 12/21/16 05:05 Physical Exam - Physical Exam General Appearance: alert, no apparent distress Respiratory: No respiratory distress, No accessory muscle use Skin: normal color, warm/dry Extremities: No pedal edema Neuro/Psych: alert, oriented x 3 ICD10 Worksheet Patient Problems: Problems Problem Status Onset Abdominal pain Acute Palliative care encounter Acute Vomiting Acute Bone metastases Chronic Metastasis to kidney Chronic Metastatic cancer to brain Chronic Metastatic cancer to liver Chronic Metastatic lung cancer (metastasis from lung to other site) Chronic ~05/2015 - ICD10 Problem Qualifiers (1) Palliative care encounter
--- NOTE | 2016-12-23 13:54 | SOAPPROG ---
MYRIAM Progress Note Assessment/Plan: Assessment:Plan: 12/20/16 18:28 present for EGD that just finished her duodenum is open at least 12-15 cm. the therapeutic scope passes easily beyond the narrowing and it is 12.5 mm in diameter stents usually dilates to about 15 mm in tight strictures we decided not to place the stent given the EGD findings NGT is removed during procedure will leave out for now and see if she can tolerate clear liquids can use Reglan if gastric motility decreased 12/21/16 11:26 as above, EGD with open duodenum, no stent placed 1) GOO - resolving, likely from pancreatitis 2) Diet - tolerating clears, will try full liquids. If having nausea can consider motility agent such as reglan 12/22/16 19:04 1) Pancreatitis - resolving slowly, likely from her mets, slowly advancing diet. I would like to try a low fat low protein tomorrow if her exam is not worse and if Lipase hasn't increased significantly 2) GOO - from her pancreatitis, now open will follow 12/22/16 19:12 12/23/16 13:51 1) pancreatitis - improving, diet had been advanced, she is feeling well and tolerating her diet w/o issue. 2) GOO - resolved, from her pancreatitis I think the link is inplace and Oncology and hospitalists will take it from here I will sing off for now If she worsens or if they are other GI issues, please call us back. Dr. Li will be out MD over the next week starting at 5pm thank you Subjective: cc- pancreatitis, GOO pt is felling better, tolerating diet w.o issue Objective: Vital Signs Temp Pulse Resp BP Pulse Ox 36.8 C 108 H 15 134/93 H 93 12/23/16 12:35 12/23/16 12:35 12/23/16 12:35 12/23/16 12:35 12/23/16 12:35 Microbiology 12/17/16 14:20 Blood Culture - Final Blood 12/17/16 14:15 Blood Culture - Final Blood Laboratory Results 12/22/16 04:30 12/23/16 03:10 12/22/16 12/23/16 12/24/16 05:59 05:59 05:59 Intake Total 2543 350 600 Output Total 900 1100 200 Balance 1643 -750 400 PT 14.4 SEC (12.0-15.0) 12/21/16 05:05 INR 1.13 (0.83-1.16) 12/21/16 05:05 alert coasre BS S1S2 +BS, soft, mild tenderness epi no r/g ICD10 Worksheet Patient Problems: Problems Problem Status Onset Abdominal pain Acute Palliative care encounter Acute Vomiting Acute Bone metastases Chronic Metastasis to kidney Chronic Metastatic cancer to brain Chronic Metastatic cancer to liver Chronic Metastatic lung cancer (metastasis from lung to other site) Chronic ~05/2015
[2016-12-23] MEDS: IPRATROPIUM/ALBUTEROL 3 ML DEYVIAL IH PRN (16:10)
--- NOTE | 2016-12-23 16:49 | ASMTCMCOM ---
CM Note CM Note Notes: Pt still not ready for DC. Met with pt's father Frantz and friend Maura who is the one with whom pt's 13 y/o dtr is currently living. Frantz and Maura expressed concerns about pt's will and the plan for who will have custody of pt's dtr when she dies. We discussed the fact that pt is not is not currently with her . Frantz and Maura felt that it would be important for someone to discuss this with pt. We decided that the [facility] palliative social services technician. would be best to discuss these sensitive issues with pt after DC because the social services technician would have continuity with the pt. Spoke with Shagufta at [facility] and provided her with the friend's, Maura's info ( Maura Vaughn at [phone]). Maura would like to be the point person with [facility]. C/M will continue to follow for other needs besides palliative care when pt DCs. Date Signed: 12/23/2016 04:48 PM Electronically Signed By:Huma Huston LCSW
[2016-12-23] MEDS: TPN 1 EA BAG IV SCH (21:06)
[2016-12-24] MEDS: HYDROmorphONE/DILAUDID 2 MG TAB PO PRN ×4 (03:18→21:19)
[2016-12-24] MEDS: CHOLECALCIFEROL VIT D3 1,000 UNITS TAB PO SCH (09:33)
[2016-12-24] MEDS: PANTOPRAZOLE SODIUM 40 MG TAB PO SCH ×2 (09:33→21:08)
--- NOTE | 2016-12-24 09:49 | SOAPPROG ---
SOAP Progress Note Assessment/Plan: Assessment: Assessment: 1) Metastatic NSC lung cancer 2) Gastric outlet obstruction likely due to pancreatitis with inflammatory cyst. 3) Pancreatitis secondary to metastatic involvement from #1, also possibly drug related Plan: Overall her pancreatitis is responding to conservative management. Continue current management / TPN / Bowel rest. She is doing better today and her diet has been advanced. So far she is tolerating this. Her Lipase level remains elevated, but seems to be gradually improving Above d/w patient. Her questions were answered. 12/24/16 09:42 Subjective: Tolerating small amounts of food Objective: Vital Signs Temp Pulse Resp BP Pulse Ox 98.1 F 105 H 19 146/97 H 96 12/24/16 08:00 12/24/16 08:00 12/24/16 08:00 12/24/16 08:00 12/24/16 08:00 Laboratory Results 12/22/16 04:30 12/23/16 03:10 12/23/16 12/24/16 12/25/16 05:59 05:59 05:59 Intake Total 350 1787 Output Total 1100 200 Balance -750 1587 PT 14.4 SEC (12.0-15.0) 12/21/16 05:05 INR 1.13 (0.83-1.16) 12/21/16 05:05 Physical Exam - Physical Exam General Appearance: mild distress Respiratory: lungs clear Cardiac/Chest: regular rate, rhythm Abdomen: distended, No normal bowel sounds ICD10 Worksheet Patient Problems: Problems Problem Status Onset Abdominal pain Acute Palliative care encounter Acute Vomiting Acute Bone metastases Chronic Metastasis to kidney Chronic Metastatic cancer to brain Chronic Metastatic cancer to liver Chronic Metastatic lung cancer (metastasis from lung to other site) Chronic ~05/2015
--- NOTE | 2016-12-24 15:41 | HOSPPROG ---
Hospitalist Progress Note Assessment/Plan: The patient is a female with PMH metastatic non-small cell lung cancer who was admitted for acute pancreatitis. ASSESSMENT/PLAN: Acute pancreatitis, improved Gastric outlet obstruction Stage IV non-small cell lung cancer - metastasis to brain, liver, kidney, pancreas Lorie-Olsen tear, resolved Peptic ulcer Anemia, secondary to blood loss -continue TPN. -advancing diet as tolerated -GI, Oncology, palliative Medicine consulted VTE prophylaxis: Lovenox Code Status: Full code Status: Inpatient for greater than 2 midnight stay. ____ SUBJECTIVE: Patient has been tolerating diet. She ate applesauce earlier. She is ambulating. OBJECTIVE: Physical Exam: General: The patient is a female who is alert and in no acute distress. HEENT: normocephalic, extraocular movements intact, conjunctivae clear. Mucous membranes moist. Neck: trachea midline, no visible masses. CV: +S1/S2, RRR, no MRG. Resp: unlabored, CTAB no RRW. Abd: soft and nondistended. Bowel sounds present. Musculoskeletal: Normal muscle tone/bulk. Neuro: cranial nerves II XII grossly intact. Intact gross motor and sensory function. Psych: Appropriate mood and appropriate affect. Skin: Mild pallor. No petechiae. Heme/lymph: No peripheral edema at bilateral feet. Labs/Imaging/Other Tests: Personally reviewed/interpreted. This patient is new to me. Reviewed patient's chart/records for this visit. Objective: Vital Signs Temp Pulse Resp BP Pulse Ox 36.2 C 100 18 125/85 H 96 12/24/16 15:34 12/24/16 15:34 12/24/16 15:34 12/24/16 15:34 12/24/16 15:34 Laboratory Results 12/22/16 04:30 12/23/16 03:10 12/23/16 12/24/16 12/25/16 05:59 05:59 05:59 Intake Total 350 1787 Output Total 1100 200 Balance -750 1587 PT 14.4 SEC (12.0-15.0) 12/21/16 05:05 INR 1.13 (0.83-1.16) 12/21/16 05:05 ICD10 Worksheet Patient Problems: Problems Problem Status Onset Abdominal pain Acute Palliative care encounter Acute Vomiting Acute Bone metastases Chronic Metastasis to kidney Chronic Metastatic cancer to brain Chronic Metastatic cancer to liver Chronic Metastatic lung cancer (metastasis from lung to other site) Chronic ~05/2015
[2016-12-24] MEDS: TPN 1 EA BAG IV SCH (21:08)
[2016-12-25] MEDS: HYDROmorphONE/DILAUDID 2 MG TAB PO PRN ×4 (02:00→20:22)
[2016-12-25 04:43] LABS: HEMATOCRIT 24.1 % (38.0-47.0); HEMOGLOBIN 7.6 g/dL (12.6-16.3); MEAN CELL HEMOGLOBIN 27.9 pg (27.9-34.1); MEAN CELL HEMOGLOBIN CONCENTR. 31.5 g/dL (32.4-36.7); MEAN CELL VOLUME 88.6 fL (81.5-99.8); RED BLOOD CELL COUNT 2.72 10^6/uL (4.18-5.33); RED CELL DISTRIBUTION WIDTH 19.5 % (11.5-15.2)
[2016-12-25] MEDS: PANTOPRAZOLE SODIUM 40 MG TAB PO SCH ×2 (09:41→20:22)
[2016-12-25] MEDS: CHOLECALCIFEROL VIT D3 1,000 UNITS TAB PO SCH (09:41)
--- NOTE | 2016-12-25 11:14 | SOAPPROG ---
SOAP Progress Note Assessment/Plan: Assessment: Assessment: 1) Metastatic NSC lung cancer 2) Gastric outlet obstruction likely due to pancreatitis with inflammatory cyst. 3) Pancreatitis secondary to metastatic involvement from #1, also possibly drug related 4) some dyspnea wheezing, possibly volume overload, wt up 5) anemia, transfuse for hemoglobin less than 7 Plan: Overall her pancreatitis is responding to conservative management. Continue current management with TPN . She is doing better today and her diet has been advanced. So far she is tolerating this. Her Lipase level remains elevated, but seems to be gradually improving Will check cxr, consider bronchodilators, possibly lasix 12/24/16 09:42 12/25/16 11:11 12/25/16 11:15 Subjective: Abdomen feels ok, feels a bit more sob Objective: Vital Signs Temp Pulse Resp BP Pulse Ox 98.4 F 100 18 137/87 H 92 12/25/16 08:03 12/25/16 08:03 12/25/16 08:03 12/25/16 08:03 12/25/16 08:03 Laboratory Results 12/25/16 04:35 12/23/16 03:10 12/24/16 12/25/16 12/26/16 05:59 05:59 05:59 Intake Total 1787 648 Output Total 200 Balance 1587 648 PT 14.4 SEC (12.0-15.0) 12/21/16 05:05 INR 1.13 (0.83-1.16) 12/21/16 05:05 Physical Exam - Physical Exam General Appearance: mild distress Respiratory: wheezing Cardiac/Chest: regular rate, rhythm Abdomen: normal bowel sounds, non-tender ICD10 Worksheet Patient Problems: Problems Problem Status Onset Abdominal pain Acute Palliative care encounter Acute Vomiting Acute Bone metastases Chronic Metastasis to kidney Chronic Metastatic cancer to brain Chronic Metastatic cancer to liver Chronic Metastatic lung cancer (metastasis from lung to other site) Chronic ~05/2015
[2016-12-25] MEDS ORDERED: FUROSEMIDE 20 MG/2 ML VIAL IVP ONE (13:58)
[2016-12-25] MEDS: IPRATROPIUM/ALBUTEROL 3 ML DEYVIAL IH SCH ×2 (14:43→20:05)
[2016-12-25] MEDS: ENOXAPARIN 40 MG/0.4 ML SYR SC SCH (16:41)
[2016-12-25] MEDS: TPN 1 EA BAG IV SCH (20:22)
--- NOTE | 2016-12-25 21:38 | HOSPPROG ---
Hospitalist Progress Note Assessment/Plan: The patient is a female with PMH metastatic non-small cell lung cancer who was admitted for acute pancreatitis. ASSESSMENT/PLAN: Acute pancreatitis, improved Gastric outlet obstruction Stage IV non-small cell lung cancer - metastasis to brain, liver, kidney, pancreas Post-obstructive pneumonitis Lorie-Olsen tear, resolved Peptic ulcer Anemia, secondary to blood loss on admission -If pt tolerates diet today, consider to stop TPN tomorrow. -GI, Oncology, palliative Medicine consulted -Since no bleeding for over a week, start Lovenox for VTE ppx. -Remove PICC line - not being used, bothers pt. -For new onset wheezing w/ some fluid in lungs - giving a dose of Lasix 20g today and starting on DuoNeb BID. VTE prophylaxis: Lovenox Code Status: Full code Status: Inpatient for greater than 2 midnight stay. ____ SUBJECTIVE: Patient has been eating some food. OBJECTIVE: Physical Exam: General: The patient is a female who is alert and in no acute distress. HEENT: normocephalic, extraocular movements intact, conjunctivae clear. Mucous membranes moist. Neck: trachea midline, no visible masses. CV: +S1/S2, RRR, no MRG. Resp: unlabored, CTAB. + b/l wheezing, inspir/expiratory. Abd: soft and nondistended. Bowel sounds present. +tender to light palpation midepigastrium. Musculoskeletal: Normal muscle tone/bulk. Neuro: cranial nerves II XII grossly intact. Intact gross motor and sensory function. Psych: Appropriate mood and appropriate affect. Skin: Mild pallor. No petechiae. Heme/lymph: No peripheral edema at bilateral feet. Labs/Imaging/Other Tests: Personally reviewed/interpreted. CXR. KUB. Objective: Vital Signs Temp Pulse Resp BP Pulse Ox 37.0 C 110 H 15 128/85 H 92 12/25/16 19:11 12/25/16 19:11 12/25/16 19:11 12/25/16 19:11 12/25/16 19:11 Laboratory Results 12/25/16 04:35 12/23/16 03:10 12/24/16 12/25/16 12/26/16 05:59 05:59 05:59 Intake Total 1787 648 Output Total 200 Balance 1587 648 PT 14.4 SEC (12.0-15.0) 12/21/16 05:05 INR 1.13 (0.83-1.16) 12/21/16 05:05 ICD10 Worksheet Patient Problems: Problems Problem Status Onset Abdominal pain Acute Palliative care encounter Acute Vomiting Acute Bone metastases Chronic Metastasis to kidney Chronic Metastatic cancer to brain Chronic Metastatic cancer to liver Chronic Metastatic lung cancer (metastasis from lung to other site) Chronic ~05/2015
[2016-12-26] MEDS: HYDROmorphONE/DILAUDID 2 MG TAB PO PRN ×4 (02:19→17:31)
[2016-12-26 08:58] LABS: ALANINE AMINOTRANSFERASE 23 IU/L (9-52); ALBUMIN 2.2 g/dL (3.5-5.0); ALKALINE PHOSPHATASE 236 IU/L (38-126); ANION GAP 9 mEq/L (8-16); ASPARTATE AMINOTRANSFERASE 48 IU/L (14-46); BILIRUBIN,TOTAL 0.6 mg/dL (0.1-1.4); CALCIUM 7.8 mg/dL (8.5-10.4); CARBON DIOXIDE 27 mEq/l (22-31); CHLORIDE 100 mEq/L (97-110); CREATININE 0.6 mg/dL (0.6-1.0); GLOMERULAR FILTRATION RATE > 60; GLUCOSE 140 mg/dL (70-100); MAGNESIUM 2.2 mg/dL (1.6-2.3); POTASSIUM 4.1 mEq/L (3.5-5.2); SODIUM 136 mEq/L (134-144); TOTAL PROTEIN 5.2 g/dL (6.3-8.2)
[2016-12-26] MEDS ORDERED: ENOXAPARIN 40 MG/0.4 ML SYR SC SCH (09:00)
[2016-12-26] MEDS: IPRATROPIUM/ALBUTEROL 3 ML DEYVIAL IH SCH ×2 (09:03→20:21)
[2016-12-26] MEDS: PANTOPRAZOLE SODIUM 40 MG TAB PO SCH ×2 (09:28→19:59)
[2016-12-26] MEDS: ENOXAPARIN 40 MG/0.4 ML SYR SC SCH (09:29)
[2016-12-26] MEDS: CHOLECALCIFEROL VIT D3 1,000 UNITS TAB PO SCH (09:29)
[2016-12-26 10:10] LABS: ABSOLUTE IMMATURE GRANULOCYTES 0.13 10^3/uL (0.00-0.10); ABSOLUTE NRBC COUNT 0.07 10^3/uL (0-0.01); ADD DIFF? NO; ADD MORPH? NO; ADD SCAN? NO; ATYPICAL LYMPHOCYTE FLAG 90 (0-99); FRAGMENT RBC FLAG 30 (0-99); HEMATOCRIT 23.6 % (38.0-47.0); HEMOGLOBIN 7.4 g/dL (12.6-16.3); LEFT SHIFT FLG 0 (0-99); LIPEMIA HEMOLYSIS FLAG 80 (0-99); MEAN CELL HEMOGLOBIN 27.9 pg (27.9-34.1); MEAN CELL HEMOGLOBIN CONCENTR. 31.4 g/dL (32.4-36.7); MEAN CELL VOLUME 89.1 fL (81.5-99.8); MEAN PLATELET VOLUME 11.4 fL (8.7-11.7); NRBC-AUTO% 0.5 % (0.0-0.2); PLATELET CLUMPS FLAG 0 (0-99); PLATELET COUNT 253 10^3/uL (150-400); RED BLOOD CELL COUNT 2.65 10^6/uL (4.18-5.33); RED CELL DISTRIBUTION WIDTH 19.5 % (11.5-15.2)
--- NOTE | 2016-12-26 12:26 | ASMTCMCOM ---
CM Note CM Note Notes: Met with patient and father, here from [place], to discuss plans at discharge as well as other areas of concern. Patient spoke of her daughter Sarina and discussions pt has had with her considering her illness and plans for her daughter is she would . Faby said she had recently discussed with her daughter of her will as well as who she would live with. She said Sarina felt very relieved following their conversation. She said that Nena father recently completed treatment for his alcoholism and would like to have Sarina live with him which Sarina would prefer. She said they also talked about what the plan would be if Nena father returned to drinking and Sarina understands that she would then go to the friends family she is currently with. They mother of the friend is a therapist and has also spoken with pts sister who lives in [place]. They plan to stay in contact so they can coordinate support for Sarina. She said she feels good she has been able to speak frankly with her daughter and hopes that has been the correct approach with her daughter. This S/W validated patients honesty and openess with daughter. Also discussed her decision to be followed by [facility]. She looks forward to additional information about what they will provide when she returns home. C/M will follow. Pharmacist Mere indicates that TPN may be discontinued today. Date Signed: 12/26/2016 12:25 PM Electronically Signed By:GUERRERO Corbett
--- NOTE | 2016-12-26 12:59 | SOAPPROG ---
SOAP Progress Note Assessment/Plan: Assessment: 1) Metastatic NSCLC, s/p multiple therapies, most recently Taxotere/ramucirumab. 2) Gastric outlet obstruction likely due to pancreatitis with inflammatory cyst. Tolerating PO today. 3) Pancreatitis secondary to metastatic involvement from #1, also possibly drug related, improving. 4) Anemia, multifactorial, transfuse for hemoglobin less than 7 Overall improving. Palliative care has seen while inpatient. 12/26/16 12:59 Subjective: S: Ate cereal this morning, no nausea, no increased pain. O: VSS. Father present. Gen: NAD. Lungs: no wheezing. CV: no edema. Abd: soft, NT. Skin: RUE PICC site without erythema. Laboratory Tests 12/26/16 12/26/16 03:55 09:58 WBC 12.73 H Hgb 7.4 L Plt Count 253 Sodium 136 Potassium 4.1 Chloride 100 Carbon Dioxide 27 BUN 13 Creatinine 0.6 Total Bilirubin 0.6 AST 48 H ALT 23 Alkaline Phosphatase 236 H Objective: Vital Signs Temp Pulse Resp BP Pulse Ox 36.7 C 102 H 15 138/95 H 93 12/26/16 12:25 12/26/16 12:25 12/26/16 12:25 12/26/16 12:25 12/26/16 12:25 Laboratory Results 12/26/16 09:58 12/26/16 03:55 12/25/16 12/26/16 12/27/16 05:59 05:59 05:59 Intake Total 648 1050 Balance 648 1050 PT 14.4 SEC (12.0-15.0) 12/21/16 05:05 INR 1.13 (0.83-1.16) 12/21/16 05:05 ICD10 Worksheet Patient Problems: Problems Problem Status Onset Abdominal pain Acute Palliative care encounter Acute Vomiting Acute Bone metastases Chronic Metastasis to kidney Chronic Metastatic cancer to brain Chronic Metastatic cancer to liver Chronic Metastatic lung cancer (metastasis from lung to other site) Chronic ~05/2015
[2016-12-26] MEDS ORDERED: BISACODYL 10 MG SUPP PR PRN (13:51)
[2016-12-26] MEDS ORDERED: POLYETHYLENE GLYCOL 3350 17 GM PKT PO PRN (13:51)
[2016-12-26] MEDS ORDERED: LACTULOSE 20 GM/30 ML UDCUP PO PRN (13:51)
[2016-12-26] MEDS ORDERED: MAGNESIUM HYDROXIDE 30 ML UDCUP PO PRN (13:51)
[2016-12-26] MEDS: HYDROmorphONE/DILAUDID 1 MG/ML INJ IVP PRN ×3 (13:58→18:09)
--- NOTE | 2016-12-26 15:41 | HOSPPROG ---
Hospitalist Progress Note Assessment/Plan: DIAGNOSES: New Onset Acute Pelvic Pain today, severe, uncertain cause Acute pancreatitis, continues to gradually improve Status post acute upper GI bleed with Lorie-Olsen tear and duodenal ulcer identified Partial Gastric outlet obstruction presumed due to tumor and/or pancreatitis, tolerating some oral fluid reasonably well now Stage IV non-small cell lung cancer - metastasis to brain, liver, kidney, pancreas Anemia, secondary to blood loss on admission Possible post-obstructive pneumonitis based on images, however minimal respiratory symptoms In terms of causes of the new pelvic pain would consider the possibly of constipation, bleeding, complication of peritoneal fluid related to pancreatitis. Without fever or increasing white blood cell count or tenderness I do not think she has fever. The location of the pain is somewhat vaguely described and is not even really clear which organ or tissues are involved. PLANS: -CT scan of the abdomen is ordered stat try and determine the etiology of new pelvic pain -Increase in pain medication due to her severe discomfort -Since no bleeding for over a week, started Lovenox for VTE ppx. -continue her current diet as she seems to be tolerating that okay - continue proton pump inhibitor -For now continue DVT prophylaxis measures SUBJECTIVE: her upper abdominal pain continues to slowly improve, and she has tolerated some serial in some milk shake in the low bit of other foods so far today However she has new onset during the day today of a severe pain that is poorly described in terms of location. It is described as an ache without neuropathic standing symptoms. She points to both inguinal areas as well as to the lumbar area and says she feels like it is somewhere in between those points. The pain is not seeming to be aggravated by any particular movement or position, though while she was up walking eventually the pain did increase when she was at the end of the hallway and she had to sit down and the wheelchair to back to bed. She has a vague sense that she may need to have a bowel movement, she says she has been emptying her bladder well and does not feel like her bladder is involved. Her last bowel movement was 2 days ago and was a normal stool for her OBJECTIVE Vitals reviewed: Some mild elevation of blood pressure and pulse are probably related to her pain at this point, no fever and respirations are good Exam: alert oriented Looks extremely uncomfortable, but as I have her sit up lie down will over and otherwise change position in bed her pain does not appear to be changed by any of those movements. She is able to stand up without pain on weight-bearing. skin warm dry color ok resps not labored lungs clear BSs heart regular abd Bowel sounds present, abdomen is soft and minimally distended with still some mild epigastric tenderness without guarding or rebound. There really is no tenderness in the low abdomen or pelvis or in the inguinal areas and nothing palpably abnormal there. There is no pain with any passive or active motions of the hips. The bladder does not feel distended. limbs warm, no edema iv site ok laboratory data: White blood cell count is decreased from yesterday was otherwise stable laboratory data I have reviewed her CT scan images from 1 week ago. There was some modest amount of fluid in the pelvis that was uncomplicated. There were no other abnormalities of soft tissues skeleton or otherwise on that scan which was a contrast study. There was notably stool throughout the transverse and descending sigmoid colon. Objective: Vital Signs Temp Pulse Resp BP Pulse Ox 36.7 C 102 H 15 138/95 H 93 12/26/16 12:25 12/26/16 12:25 12/26/16 12:25 12/26/16 12:25 12/26/16 12:25 Laboratory Results 12/26/16 09:58 12/26/16 03:55 12/25/16 12/26/16 12/27/16 06:59 06:59 06:59 Intake Total 648 1050 Balance 648 1050 PT 14.4 SEC (12.0-15.0) 12/21/16 05:05 INR 1.13 (0.83-1.16) 12/21/16 05:05 - Time Spent With Patient Time Spent with Patient: greater than 35 minutes Time Spent with Patient: Greater than 35 minutes spent on this patients care, greater than 50% of time spent counseling, educating, and coordinating care regarding the above mentioned plan. ICD10 Worksheet Patient Problems: Problems Problem Status Onset Abdominal pain Acute Palliative care encounter Acute Vomiting Acute Bone metastases Chronic Metastasis to kidney Chronic Metastatic cancer to brain Chronic Metastatic cancer to liver Chronic Metastatic lung cancer (metastasis from lung to other site) Chronic ~05/2015
[2016-12-26] MEDS ORDERED: IOPAMIDOL (ISOVUE-300) 100 ML BTL ONE (16:13)
[2016-12-26] MEDS ORDERED: NALOXONE HCL 0.4 MG/ML INJ IVP PRN (17:46)
[2016-12-26] MEDS: HYDROmorphONE/DILAUDID 6 MG/30 ML PCA IV PRN (18:05)
[2016-12-26] MEDS: SENNOSIDES/DOCUSATE SODIUM TAB PO SCH (19:59)
[2016-12-27 03:48] LABS: COLOR YELLOW; LEUKOCYTE ESTERASE,URINE NEGATIVE (NEGATIVE); NITRITE,URINE NEGATIVE (NEGATIVE)
[2016-12-27 03:50] LABS: MUCUS TRACE /lpf (NONE-1+)
[2016-12-27] MEDS: ONDANSETRON 4 MG/2 ML VIAL IVP PRN ×2 (09:02→18:20)
[2016-12-27] MEDS: IPRATROPIUM/ALBUTEROL 3 ML DEYVIAL IH SCH ×2 (09:32→22:03)
[2016-12-27] MEDS: PANTOPRAZOLE SODIUM 40 MG TAB PO SCH ×2 (09:48→22:00)
[2016-12-27] MEDS: SENNOSIDES/DOCUSATE SODIUM TAB PO SCH ×2 (09:48→22:00)
[2016-12-27] MEDS: CHOLECALCIFEROL VIT D3 1,000 UNITS TAB PO SCH (09:48)
[2016-12-27] MEDS: ENOXAPARIN 40 MG/0.4 ML SYR SC SCH (09:49)
--- NOTE | 2016-12-27 15:40 | SOAPPROG ---
SOAP Progress Note Assessment/Plan: Assessment: SOAP Progress Note Assessment/Plan: Assessment: 1) Metastatic NSCLC, s/p multiple therapies, most recently Taxotere/ramucirumab. 2) Gastric outlet obstruction likely due to pancreatitis with inflammatory cyst. Vomited last night, but patient thinks more related to gagging from tube/ cough. 3) Pancreatitis secondary to metastatic involvement from #1, also possibly drug related, improving. Much less upper abdominal pain today. 4) New severe lower pelvic/groin pain-better today, but on [employer]. CT scan unrevealing. Some ascites, but unlikely infected without fever. Exam this morning suggestive of muscular etiology. 4) Anemia, multifactorial, transfuse for hemoglobin less than 7 Plan: Continue TPN for now Follow groin pain for now ad treat with local therapies-heat, etc. Consider pelvic ultrasound and/or sampling of ascites if fever or increased pain. Holding treatment for NSCLC for now. 12/27/16 15:35 Subjective: severe groin pain last night. Now better, but on [employer]. more on the left today Objective: Vital Signs Temp Pulse Resp BP Pulse Ox 36.8 C 108 H 18 129/95 H 94 12/27/16 12:00 12/27/16 12:00 12/27/16 12:00 12/27/16 12:00 12/27/16 12:00 Laboratory Results 12/26/16 09:58 12/26/16 03:55 12/26/16 12/27/16 12/28/16 05:59 05:59 05:59 Intake Total 1050 1388 Output Total 1300 Balance 1050 88 PT 14.4 SEC (12.0-15.0) 12/21/16 05:05 INR 1.13 (0.83-1.16) 12/21/16 05:05 Physical Exam - Physical Exam General Appearance: alert, mild distress EENT: other (voice is raspy) Respiratory: other (clear anteriorly) Abdomen: non-tender, soft Pelvic Exam: other (tender to palpation over left groin, appears to be tender over a muscle) Extremities: pedal edema (1+ edema bilateral) ICD10 Worksheet Patient Problems: Problems Problem Status Onset Abdominal pain Acute Palliative care encounter Acute Vomiting Acute Bone metastases Chronic Metastasis to kidney Chronic Metastatic cancer to brain Chronic Metastatic cancer to liver Chronic Metastatic lung cancer (metastasis from lung to other site) Chronic ~05/2015
--- NOTE | 2016-12-27 18:05 | HOSPPROG ---
Hospitalist Progress Note Assessment/Plan: DIAGNOSES: New Onset Acute Pelvic Pain severe, uncertain cause Acute pancreatitis, continues to gradually improve Status post acute upper GI bleed with Lorie-Olsen tear and duodenal ulcer identified Partial Gastric outlet obstruction presumed due to tumor and/or pancreatitis, tolerating some oral fluid reasonably well now Stage IV non-small cell lung cancer - metastasis to brain, liver, kidney, pancreas Anemia, secondary to blood loss on admission Possible post-obstructive pneumonitis based on images, however minimal respiratory symptoms Her inguinal pain appears to be a noninflammatory soft tissue pain, and possibly related to her fall It will likely resolve on it's own PLANS: -Since no bleeding for over a week, started Lovenox for VTE ppx. -continue her current diet as she seems to be tolerating that okay -continue proton pump inhibitor -For now continue DVT prophylaxis measures SUBJECTIVE: still having the new LLQ abd/pelvic pain though now is really more pain near the inguinal ligament. today she tells me she fell out of bed onto L side a week ago and wonders if this is related to that. pain not really positional today and no affected by weight bearing. still w minimal appetite but taking so po fluids OBJECTIVE Vitals reviewed: bp and pulse better today but still mild tachycardia Exam: alert oriented Looks more comfortable and relaxed today skin warm dry color ok resps not labored lungs clear BSs heart regular abd unremarkable exam, I do not feel a hernia or other abnormality at inguinal area limbs warm, no edema, no pain with palpation or movement of the hip and surrounding soft tissue structures iv site ok laboratory data: UA neg I have reviewed her CT scan images from last night, no abnormality to explain her new pain. She has a bit more ascites than a week prior but is not a complicated looking fluid. Objective: Vital Signs Temp Pulse Resp BP Pulse Ox 37.0 C 101 H 18 129/86 H 91 L 12/27/16 15:42 12/27/16 15:42 12/27/16 15:42 12/27/16 15:42 12/27/16 15:42 Laboratory Results 12/26/16 09:58 12/26/16 03:55 12/26/16 12/27/16 12/28/16 06:59 06:59 06:59 Intake Total 1050 1388 881 Output Total 1300 600 Balance 1050 88 281 PT 14.4 SEC (12.0-15.0) 12/21/16 05:05 INR 1.13 (0.83-1.16) 12/21/16 05:05 ICD10 Worksheet Patient Problems: Problems Problem Status Onset Abdominal pain Acute Palliative care encounter Acute Vomiting Acute Bone metastases Chronic Metastasis to kidney Chronic Metastatic cancer to brain Chronic Metastatic cancer to liver Chronic Metastatic lung cancer (metastasis from lung to other site) Chronic ~05/2015
[2016-12-27] MEDS: PROMETHAZINE HCL 25 MG/ML INJ IVP PRN (20:18)
[2016-12-28] MEDS: HYDROmorphONE/DILAUDID 6 MG/30 ML PCA IV PRN (03:37)
[2016-12-28] MEDS: IPRATROPIUM/ALBUTEROL 3 ML DEYVIAL IH SCH ×2 (05:07→20:12)
[2016-12-28 05:27] LABS: % IMMATURE GRANULYOCYTES 0.6 % (0.0-1.1); ABSOLUTE IMMATURE GRANULOCYTES 0.09 10^3/uL (0.00-0.10); ABSOLUTE NRBC COUNT 0.05 10^3/uL (0-0.01); ADD DIFF? NO; ADD MORPH? NO; ADD SCAN? NO; ATYPICAL LYMPHOCYTE FLAG 80 (0-99); FRAGMENT RBC FLAG 20 (0-99); HEMATOCRIT 23.5 % (38.0-47.0); HEMOGLOBIN 7.2 g/dL (12.6-16.3); LEFT SHIFT FLG 0 (0-99); LIPEMIA HEMOLYSIS FLAG 80 (0-99); MEAN CELL HEMOGLOBIN 27.6 pg (27.9-34.1); MEAN CELL HEMOGLOBIN CONCENTR. 30.6 g/dL (32.4-36.7); NRBC-AUTO% 0.4 % (0.0-0.2); PLATELET CLUMPS FLAG 30 (0-99); PLATELET COUNT 287 10^3/uL (150-400); RED BLOOD CELL COUNT 2.61 10^6/uL (4.18-5.33); RED CELL DISTRIBUTION WIDTH 19.6 % (11.5-15.2)
[2016-12-28 06:17] LABS: ANION GAP 11 mEq/L (8-16); CALCIUM 8.4 mg/dL (8.5-10.4); CARBON DIOXIDE 23 mEq/l (22-31); CHLORIDE 105 mEq/L (97-110); CREATININE 0.7 mg/dL (0.6-1.0); GLOMERULAR FILTRATION RATE > 60; GLUCOSE 73 mg/dL (70-100); MAGNESIUM 2.1 mg/dL (1.6-2.3); POTASSIUM 4.4 mEq/L (3.5-5.2); SODIUM 139 mEq/L (134-144)
[2016-12-28] MEDS: PANTOPRAZOLE SODIUM 40 MG TAB PO SCH ×2 (08:03→23:09)
[2016-12-28] MEDS: ONDANSETRON 4 MG/2 ML VIAL IVP PRN (08:03)
[2016-12-28] MEDS: SENNOSIDES/DOCUSATE SODIUM TAB PO SCH ×2 (08:03→23:10)
[2016-12-28] MEDS: PROMETHAZINE HCL 25 MG/ML INJ IVP PRN (10:28)
[2016-12-28] MEDS: ENOXAPARIN 40 MG/0.4 ML SYR SC SCH (10:34)
[2016-12-28] MEDS: CHOLECALCIFEROL VIT D3 1,000 UNITS TAB PO SCH (10:36)
--- NOTE | 2016-12-28 16:29 | ASMTCMCOM ---
CM Note CM Note Notes: Pt is off TPN. The d/c plan is still to go home with [facility]. Received call from Marychuy from [facility] - if pt does d/c home on TPN, she is covered 100%. Pt still not cleared for d/c and per RN, her condition has worsened. Date Signed: 12/28/2016 04:28 PM Electronically Signed By:GUERRERO Kramer
--- NOTE | 2016-12-28 16:33 | HOSPPROG ---
Hospitalist Progress Note Assessment/Plan: DIAGNOSES: Acute increase in upper abd pain and vomiting today; ? cause, I suspect ongoing pancreatitis but difficult to tell at present Acute pancreatitis Status post acute upper GI bleed with Lorie-Olsen tear and duodenal ulcer identified At present I do NOT think she had any gastric or bowel obsruction, more likely ileus; New Onset Acute Pelvic Pain severe, uncertain cause; this is now resolved, likely muscular Stage IV non-small cell lung cancer - metastasis to brain, liver, kidney, pancreas Post Hemorrhagic Anemia, secondary to blood loss on admission Possible post-obstructive pneumonitis based on images, however minimal respiratory symptoms PLANS: -replace NG to suction due to her vomiting and pain -repeat liver panel and lipase at present -will ask for GI to reassess, help evaluate mechanism of symptoms and approach to management, but I suspect this is tumor induced pancreatitis, and our hands may be somewhat tied in terms of treatment approaches -continue proton pump inhibitor -For now continue DVT prophylaxis measures, follow for any recurrent bleeding I reviewed all of above w pt and her father at bedside, answered their questions. SUBJECTIVE: LLQ pain is now gone however today she has been vomiting all day (bilious) and has more epigastric and LUQ pain, no fever sxs; not really nauseous no BM for days no appetite OBJECTIVE Vitals reviewed: bp ok today but still mild tachycardia Exam: alert oriented Looks more comfortable and relaxed today skin warm dry color ok resps not labored lungs clear BSs heart regular abd today notably more tender in entire upper abdomen with some guarding no rebound limbs warm, no edema, no pain with palpation or movement of the hip and surrounding soft tissue structures iv site ok laboratory data: WBC higher at 14 K, met panel unremarkable I have reviewed her CT images (both studies)and the results of her endoscopies in detail today - I do not see any sign that there has been any Gastric Outlet Obstruction or SBO; she does have a mildly distended stomach and proximal duodenum on first CT scan, but I believe this likely represents focal ileus caused by pancreatitis. Objective: Vital Signs Temp Pulse Resp BP Pulse Ox 36.4 C 105 H 16 150/98 H 93 12/28/16 14:04 12/28/16 14:04 12/28/16 14:04 12/28/16 14:04 12/28/16 14:04 Laboratory Results 12/28/16 05:00 12/28/16 05:00 12/27/16 12/28/16 12/29/16 06:59 06:59 06:59 Intake Total 1388 1908.8 Output Total 5720 818 6767 Balance 88 1308.8 -1000 PT 14.4 SEC (12.0-15.0) 12/21/16 05:05 INR 1.13 (0.83-1.16) 12/21/16 05:05 - Time Spent With Patient Time Spent with Patient: greater than 35 minutes Time Spent with Patient: Greater than 35 minutes spent on this patients care, greater than 50% of time spent counseling, educating, and coordinating care regarding the above mentioned plan. ICD10 Worksheet Patient Problems: Problems Problem Status Onset Abdominal pain Acute Palliative care encounter Acute Vomiting Acute Bone metastases Chronic Metastasis to kidney Chronic Metastatic cancer to brain Chronic Metastatic cancer to liver Chronic Metastatic lung cancer (metastasis from lung to other site) Chronic ~05/2015
--- NOTE | 2016-12-28 17:15 | SOAPPROG ---
SOAP Progress Note Assessment/Plan: Assessment: SOAP Progress Note Assessment/Plan: Assessment: 1) Metastatic NSCLC, s/p multiple therapies, currently on 4th line therapy with Taxotere/ramucirumab. 3) Pancreatitis secondary to metastatic involvement from #1. More pain and vomiting today. Recent imaging has not identified obstruction. 4) Lower pelvic/groin pain-better today, but on LOT ATTENDANT. CT scan unrevealing. Some ascites, but unlikely infected without fever. 4) Anemia, multifactorial, transfuse for hemoglobin less than 7 Plan: had lengthy discussion tonight with patient and her father. She is on 4th line therapy for metastatic NSCLC without response. In addition, her performance status remains poor. Clinically she is having more pain and vomiting. She is unable to take po. We discussed quality of remaining life, goals for remaining life, etc. She is interested in meeting again with palliative care, but would like to have girlfriends present for the meeting. They will be very involved in her 13 year old daughter's life after her . She is considering hospice, but would like to discuss with palliative care before meeting with hospice. 12/28/16 17:10 Subjective: looks uncomfortable. vomiting Objective: Vital Signs Temp Pulse Resp BP Pulse Ox 36.8 C 106 H 18 133/96 H 91 L 12/28/16 16:27 12/28/16 16:27 12/28/16 16:27 12/28/16 16:27 12/28/16 16:27 Laboratory Results 12/28/16 05:00 12/28/16 05:00 12/27/16 12/28/16 12/29/16 05:59 05:59 05:59 Intake Total 1388 1908.8 Output Total 7820 716 5113 Balance 88 1308.8 -1000 PT 14.4 SEC (12.0-15.0) 12/21/16 05:05 INR 1.13 (0.83-1.16) 12/21/16 05:05 Physical Exam - Physical Exam General Appearance: other (appears fatigued) Abdomen: soft, other (mild tenderness to palpation in mid epigastric area and RLQ) ICD10 Worksheet Patient Problems: Problems Problem Status Onset Abdominal pain Acute Palliative care encounter Acute Vomiting Acute Bone metastases Chronic Metastasis to kidney Chronic Metastatic cancer to brain Chronic Metastatic cancer to liver Chronic Metastatic lung cancer (metastasis from lung to other site) Chronic ~05/2015
[2016-12-28 17:58] LABS: ALBUMIN 2.6 g/dL (3.5-5.0); BILIRUBIN,TOTAL 1.6 mg/dL (0.1-1.4); BILIRUBIN-CONJUGATED 0.9 mg/dL (0.0-0.5); BILIRUBIN-UNCONJUGATED 0.7 mg/dL (0.0-1.1); TOTAL PROTEIN 6.2 g/dL (6.3-8.2)
[2016-12-29] MEDS: NS 1,000 ML IV SCH ×2 (03:44→22:09)
[2016-12-29] MEDS: ENOXAPARIN 40 MG/0.4 ML SYR SC SCH (08:37)
[2016-12-29] MEDS: CHOLECALCIFEROL VIT D3 1,000 UNITS TAB PO SCH (08:46)
[2016-12-29] MEDS: SENNOSIDES/DOCUSATE SODIUM TAB PO SCH ×2 (08:47→21:12)
[2016-12-29] MEDS: PANTOPRAZOLE SODIUM 40 MG TAB PO SCH ×2 (08:47→21:13)
[2016-12-29] MEDS: IPRATROPIUM/ALBUTEROL 3 ML DEYVIAL IH SCH ×2 (09:22→21:36)
--- NOTE | 2016-12-29 11:58 | HOSPPROG ---
Hospitalist Progress Note Assessment/Plan: DIAGNOSES: Acute increase in upper abd pain and vomiting today; ? cause, I suspect ongoing pancreatitis but difficult to tell at present Acute pancreatitis Status post acute upper GI bleed with Lorie-Olsen tear and duodenal ulcer identified At present I do NOT think she had any gastric or bowel obsruction, more likely ileus; New Onset Acute Pelvic Pain severe, uncertain cause; this is now resolved, likely muscular Stage IV non-small cell lung cancer - metastasis to brain, liver, kidney, pancreas Post Hemorrhagic Anemia, secondary to blood loss on admission Possible post-obstructive pneumonitis based on images, however minimal respiratory symptoms PLANS: -replace NG to suction due to her vomiting and pain -repeat liver panel and lipase at present -will ask for GI to reassess, help evaluate mechanism of symptoms and approach to management, but I suspect this is tumor induced pancreatitis, and our hands may be somewhat tied in terms of treatment approaches -continue proton pump inhibitor -For now continue DVT prophylaxis measures, follow for any recurrent bleeding I reviewed all of above w pt and her father at bedside, answered their questions. SUBJECTIVE: LLQ pain is now gone however today she has been vomiting all day (bilious) and has more epigastric and LUQ pain, no fever sxs; not really nauseous no BM for days no appetite OBJECTIVE Vitals reviewed: bp ok today but still mild tachycardia Exam: alert oriented Looks more comfortable and relaxed today skin warm dry color ok resps not labored lungs clear BSs heart regular abd today notably more tender in entire upper abdomen with some guarding no rebound limbs warm, no edema, no pain with palpation or movement of the hip and surrounding soft tissue structures iv site ok laboratory data: WBC higher at 14 K, met panel unremarkable I have reviewed her CT images (both studies)and the results of her endoscopies in detail today - I do not see any sign that there has been any Gastric Outlet Obstruction or SBO; she does have a mildly distended stomach and proximal duodenum on first CT scan, but I believe this likely represents focal ileus caused by pancreatitis. Objective: Vital Signs Temp Pulse Resp BP Pulse Ox 36.5 C 104 H 18 129/86 H 95 12/29/16 10:00 12/29/16 10:00 12/29/16 10:00 12/29/16 10:00 12/29/16 10:00 Laboratory Results 12/28/16 05:00 12/28/16 05:00 12/28/16 12/29/16 12/30/16 06:59 06:59 06:59 Intake Total 1908.8 1825 750 Output Total 600 3700 Balance 1308.8 -1875 750 PT 14.4 SEC (12.0-15.0) 12/21/16 05:05 INR 1.13 (0.83-1.16) 12/21/16 05:05 ICD10 Worksheet Patient Problems: Problems Problem Status Onset Abdominal pain Acute Palliative care encounter Acute Vomiting Acute Bone metastases Chronic Metastasis to kidney Chronic Metastatic cancer to brain Chronic Metastatic cancer to liver Chronic Metastatic lung cancer (metastasis from lung to other site) Chronic ~05/2015
[2016-12-29] MEDS: PROMETHAZINE HCL 25 MG/ML INJ IVP PRN (12:35)
[2016-12-29] MEDS: HYDROmorphONE/DILAUDID 2 MG/ML INJ IVP PRN ×3 (15:44→23:57)
--- NOTE | 2016-12-29 16:47 | PDPCPN ---
Palliative Care Progress Note Assessment/Plan: HPI: Adriana Anderson is a 51 yo female with metastatic lung cancer admitted to the hospital for nausea/vomiting 2/2 gastric outlet obstruction and pancreatitis. Follows with Dr Mckeon at [facility] undergoing treatment. S/p EGD x2 with improvement in obstruction now being supportive with supportive care including TPN. Palliative care consulted for complex medical decision making. Faby seen this morning with her father Frantz present. She stated her pain was ok but not able to keep anything down. Feeling better with the NG tube in. We discussed having a meeting together with all important parties to discuss her plan going forward here in the hospital and at home. Assessment: Physical: - Pain: abdominal pain - dilaudid 1-2 mg PO Q4hr PRN - IV dilaudid PRN for severe acute pain - Nausea: worse again - with NG tube - zofran or compazine PRN - recommend scheduling Reglan if no known obstruction as this will help with motility - constipation - at risk with opiates - senna and colace daily while on opiates Emotional/psychological: has a lot of support from friends and family Advanced Care Planning: Is patient decisional?: Yes Code Status: Full MD POA: Maura Vaughn is MDPOA. Plan: Will meet with Faby, her friends, , father, and mother over the phone tomorrow at 1 pm to discuss plan of care. Subjective: I feel ok Objective: Vital Signs Temp Pulse Resp BP Pulse Ox 36.7 C 101 H 18 126/93 H 98 12/29/16 12:33 12/29/16 12:33 12/29/16 12:33 12/29/16 12:33 12/29/16 12:33 Laboratory Results 12/28/16 05:00 12/28/16 05:00 12/28/16 12/29/16 12/30/16 05:59 05:59 05:59 Intake Total 1908.8 1825 750 Output Total 600 3700 Balance 1308.8 -1875 750 PT 14.4 SEC (12.0-15.0) 12/21/16 05:05 INR 1.13 (0.83-1.16) 12/21/16 05:05 Physical Exam - Physical Exam General Appearance: alert, no apparent distress Respiratory: No respiratory distress, No accessory muscle use Skin: normal color, warm/dry Extremities: No pedal edema Neuro/Psych: alert, oriented x 3 ICD10 Worksheet Patient Problems: Problems Problem Status Onset Abdominal pain Acute Palliative care encounter Acute Vomiting Acute Bone metastases Chronic Metastasis to kidney Chronic Metastatic cancer to brain Chronic Metastatic cancer to liver Chronic Metastatic lung cancer (metastasis from lung to other site) Chronic ~05/2015 - ICD10 Problem Qualifiers (1) Palliative care encounter
--- NOTE | 2016-12-29 19:20 | HOSPPROG ---
Hospitalist Progress Note Assessment/Plan: DIAGNOSES: Acute increase in upper abd pain and vomiting today; ? cause, I suspect ongoing pancreatitis but difficult to tell at present Acute pancreatitis Status post acute upper GI bleed with Lorie-Olsen tear and duodenal ulcer identified At present I do NOT think she had any gastric or bowel obsruction, more likely ileus; New Onset Acute Pelvic Pain severe, uncertain cause; this is now resolved, likely muscular Stage IV non-small cell lung cancer - metastasis to brain, liver, kidney, pancreas Post Hemorrhagic Anemia, secondary to blood loss on admission Possible post-obstructive pneumonitis based on images, however minimal respiratory symptoms PLANS: -continue NG to suction due to her vomiting and pain -small-bowel follow-through study today -I reviewed her case in detail with Dr. Guillermo hogan. If the small-bowel follow-through study does not show evidence of obstruction we may need to consider whether we have missed either gallstones or some other biliary/ pancreatic blockage or come up with some other way to explain why she has had pancreatitis and some much trouble and with rising bilirubin and alk-phos. A endoscopic ultrasound may be of use. Dr. Li is going to require review with her gastroenterology colleagues to help determine where to go with this difficult case -continue proton pump inhibitor -For now continue DVT prophylaxis measures, follow for any recurrent bleeding I reviewed all of above w pt and her father at bedside, answered their questions. SUBJECTIVE: After vomiting all day yesterday we did place an NG tube last night and she had more than a L of immediate return of gastric fluid, very bilious. There was no evidence of bleeding. This has led to some significant improvement in terms of her pain and nausea and she does not feel do so distended. No other new symptoms today. OBJECTIVE Vitals reviewed: Tachycardia improving notably today, otherwise stable without fever Exam: alert oriented Looks more comfortable and relaxed today skin warm dry color ok resps not labored lungs clear BSs heart regular abd notably less distended and tender in the upper abdomen today limbs warm, no edema, iv site ok laboratory data: Lipase 100, alkaline phosphatase and bilirubin remain mildly elevated Objective: Vital Signs Temp Pulse Resp BP Pulse Ox 36.7 C 97 14 132/78 H 98 12/29/16 16:00 12/29/16 16:00 12/29/16 16:00 12/29/16 16:00 12/29/16 16:00 Laboratory Results 12/28/16 05:00 12/28/16 05:00 12/28/16 12/29/16 12/30/16 06:59 06:59 06:59 Intake Total 1908.8 1825 1414.4 Output Total 600 3700 2600 Balance 1308.8 -1875 -1185.6 PT 14.4 SEC (12.0-15.0) 12/21/16 05:05 INR 1.13 (0.83-1.16) 12/21/16 05:05 ICD10 Worksheet Patient Problems: Problems Problem Status Onset Abdominal pain Acute Palliative care encounter Acute Vomiting Acute Bone metastases Chronic Metastasis to kidney Chronic Metastatic cancer to brain Chronic Metastatic cancer to liver Chronic Metastatic lung cancer (metastasis from lung to other site) Chronic ~05/2015
[2016-12-30 04:52] LABS: ANION GAP 8 mEq/L (8-16); CALCIUM 8.2 mg/dL (8.5-10.4); CARBON DIOXIDE 24 mEq/l (22-31); CHLORIDE 106 mEq/L (97-110); CREATININE 0.9 mg/dL (0.6-1.0); GLOMERULAR FILTRATION RATE > 60; GLUCOSE 59 mg/dL (70-100); MAGNESIUM 2.1 mg/dL (1.6-2.3); POTASSIUM 3.7 mEq/L (3.5-5.2); SODIUM 138 mEq/L (134-144)
[2016-12-30] MEDS: HYDROmorphONE/DILAUDID 2 MG/ML INJ IVP PRN ×3 (06:51→22:55)
[2016-12-30] MEDS: IPRATROPIUM/ALBUTEROL 3 ML DEYVIAL IH SCH ×2 (08:59→20:15)
--- NOTE | 2016-12-30 09:43 | HOSPPROG ---
Hospitalist Progress Note Assessment/Plan: DIAGNOSES: Status post acute upper GI bleed with Lorie-Olsen tear and duodenal ulcer identified Ongoing refractory gastric fluid retention with pain and vomiting, requiring NG to suction, unknown etiology of this Acute pancreatitis, ? resolved At present I do NOT think she had any gastric or bowel obsruction, more likely ileus; there had been concern early on that some of her symptoms were from obstruction, but this is not born out by mutliple radiology and endo studies New Onset Acute Pelvic Pain severe, uncertain cause; this is now resolved, likely muscular Stage IV non-small cell lung cancer - metastasis to brain, liver, kidney, pancreas Post Hemorrhagic Anemia, secondary to blood loss on admission: stable Possible post-obstructive pneumonitis based on images, however minimal respiratory symptoms and I wonder if this is atelectasis PLANS: -continue NG to suction due to her vomiting and pain -trial of reglan -will resume TPN now for nutrition -awaiting GI eval -For now continue DVT prophylaxis measures, follow for any recurrent bleeding -increase activity as able I reviewed all of above w pt and her father at bedside, answered their questions. SUBJECTIVE: Had an ok night though presence of NG in nose made sleep poor OBJECTIVE Vitals reviewed: Tachycardia improving notably today, otherwise stable without fever Exam: alert oriented Looks more comfortable and relaxed today skin warm dry color ok resps not labored lungs clear BSs heart regular abd notably less distended and tender in the upper abdomen today limbs warm, no edema, iv site ok laboratory data: met panel stable SBFT- no obstruction and no concerning findings though suboptimal study due to suction to NG during course of follow up images Objective: Vital Signs Temp Pulse Resp BP Pulse Ox 36.6 C 90 18 124/86 H 22 L 12/30/16 08:51 12/30/16 08:59 12/30/16 08:51 12/30/16 08:51 12/30/16 08:59 Laboratory Results 12/28/16 05:00 12/30/16 04:35 12/29/16 12/30/16 12/31/16 06:59 06:59 06:59 Intake Total 1825 3214.4 Output Total 3700 4800 Balance -1875 -1585.6 PT 14.4 SEC (12.0-15.0) 12/21/16 05:05 INR 1.13 (0.83-1.16) 12/21/16 05:05 - Time Spent With Patient Time Spent with Patient: greater than 35 minutes Time Spent with Patient: Greater than 35 minutes spent on this patients care, greater than 50% of time spent counseling, educating, and coordinating care regarding the above mentioned plan. ICD10 Worksheet Patient Problems: Problems Problem Status Onset Abdominal pain Acute Palliative care encounter Acute Vomiting Acute Bone metastases Chronic Metastasis to kidney Chronic Metastatic cancer to brain Chronic Metastatic cancer to liver Chronic Metastatic lung cancer (metastasis from lung to other site) Chronic ~05/2015
[2016-12-30] MEDS: ENOXAPARIN 40 MG/0.4 ML SYR SC SCH (10:27)
[2016-12-30] MEDS: NS 1,000 ML IV SCH (10:28)
[2016-12-30] MEDS: METOCLOPRAMIDE 10 MG/2 ML VIAL IVP SCH ×3 (10:37→17:03)
[2016-12-30] MEDS: CHOLECALCIFEROL VIT D3 1,000 UNITS TAB PO SCH (10:53)
[2016-12-30] MEDS: PANTOPRAZOLE SODIUM 40 MG TAB PO SCH ×2 (10:53→22:22)
[2016-12-30] MEDS: SENNOSIDES/DOCUSATE SODIUM TAB PO SCH ×2 (10:54→22:21)
[2016-12-30] MEDS ORDERED: D10W 1,000 ML IV PRN (11:16)
--- NOTE | 2016-12-30 16:14 | PDPCPN ---
Palliative Care Progress Note Assessment/Plan: HPI: Adriana Anderson is a 51 yo female with metastatic lung cancer admitted to the hospital for nausea/vomiting 2/2 gastric outlet obstruction and pancreatitis. Follows with Dr Mckeon at [facility] undergoing treatment. S/p EGD x2 with improvement in obstruction now being supportive with supportive care including TPN. Palliative care consulted for complex medical decision making. Met with Faby, her father Frantz, friends Rozina, Airam, and Melanie outside of her room with faby present. We spent a long time discussing Faby's wishes which are to not spend the rest of her time in the hospital hooked up to tubes. She understands the medical plan is to see how she does with the support of TPN and NG tube over the next few days. She is hoping she can continue to improve in eating and symptom control. We also spent time talking about hospice care and what this would mean. Assessment: Physical: - Pain: abdominal pain - dilaudid 1-2 mg PO Q4hr PRN - IV dilaudid PRN for severe acute pain - Nausea: worse again - with NG tube - zofran or compazine PRN - on scheduled reglan - constipation - at risk with opiates - senna and colace daily while on opiates Emotional/psychological: has a lot of support from friends and family Advanced Care Planning: Is patient decisional?: Yes Code Status: Full MD POA: Maura Vaughn is MDPOA. Plan: Faby is hoping for continued symptom management so she can be able to eat a little without needing tubes. She does not want more chemo treatment and wants to spend the rest of her time at home with her family and firends. She is sick of being in the hospital and does not want to continue to decline with more tests and procedures at the end of her life. We discussed having hospice come out next week when her mom is in town to discuss what this would look like for her. As well as give her time to see if her symptoms of nausea/vomtiing and abdominal pain under control. Subjective: i'm ok Objective: Vital Signs Temp Pulse Resp BP Pulse Ox 36.6 C 101 H 18 127/80 H 98 12/30/16 16:05 12/30/16 16:05 12/30/16 16:12/30/16 16:12/30/16 16:05 Laboratory Results 12/28/16 05:00 12/30/16 04:35 12/29/16 12/30/16 12/31/16 05:59 05:59 05:59 Intake Total 1825 2514.4 700 Output Total 3700 3300 1500 Balance -1875 -785.6 -800 PT 14.4 SEC (12.0-15.0) 12/21/16 05:05 INR 1.13 (0.83-1.16) 12/21/16 05:05 Physical Exam - Physical Exam General Appearance: alert, no apparent distress Respiratory: No respiratory distress, No accessory muscle use Skin: normal color, warm/dry Extremities: No pedal edema Neuro/Psych: alert, oriented x 3 ICD10 Worksheet Patient Problems: Problems Problem Status Onset Abdominal pain Acute Palliative care encounter Acute Vomiting Acute Bone metastases Chronic Metastasis to kidney Chronic Metastatic cancer to brain Chronic Metastatic cancer to liver Chronic Metastatic lung cancer (metastasis from lung to other site) Chronic ~05/2015 - ICD10 Problem Qualifiers (1) Palliative care encounter
[2016-12-30] MEDS: TPN 1 EA BAG IV SCH (22:26)
[2016-12-31] MEDS: METOCLOPRAMIDE 10 MG/2 ML VIAL IVP SCH ×4 (01:02→18:26)
[2016-12-31] MEDS: NS 1,000 ML IV SCH ×2 (01:03→18:51)
[2016-12-31] MEDS: HYDROmorphONE/DILAUDID 2 MG/ML INJ IVP PRN ×2 (04:46→08:22)
[2016-12-31] MEDS: ALTEPLASE 2 MG VIAL IVP PRN ×2 (05:50→05:54)
[2016-12-31 08:08] LABS: ABSOLUTE IMMATURE GRANULOCYTES 0.15 10^3/uL (0.00-0.10); ABSOLUTE NRBC COUNT 0.13 10^3/uL (0-0.01); ADD DIFF? NO; ADD MORPH? NO; ADD SCAN? YES; ATYPICAL LYMPHOCYTE FLAG 30 (0-99); FRAGMENT RBC FLAG 20 (0-99); HEMATOCRIT 23.1 % (38.0-47.0); HEMOGLOBIN 7.1 g/dL (12.6-16.3); LEFT SHIFT FLG 0 (0-99); LIPEMIA HEMOLYSIS FLAG 80 (0-99); MEAN CELL HEMOGLOBIN 28.1 pg (27.9-34.1); MEAN CELL HEMOGLOBIN CONCENTR. 30.7 g/dL (32.4-36.7); MEAN CELL VOLUME 91.3 fL (81.5-99.8); MEAN PLATELET VOLUME 10.7 fL (8.7-11.7); NRBC-AUTO% 0.9 % (0.0-0.2); PLATELET CLUMPS FLAG 0 (0-99); PLATELET COUNT 273 10^3/uL (150-400); RED BLOOD CELL COUNT 2.53 10^6/uL (4.18-5.33); RED CELL DISTRIBUTION WIDTH 19.7 % (11.5-15.2)
[2016-12-31 08:18] LABS: INR 1.16 (0.83-1.16); PROTIME(PATIENT) 14.8 SEC (12.0-15.0)
[2016-12-31 08:19] LABS: APTT 31.6 SEC (23.0-38.0)
[2016-12-31] MEDS: ACETAMINOPHEN 325 MG TAB PO PRN (08:21)
[2016-12-31] MEDS: SENNOSIDES/DOCUSATE SODIUM TAB PO SCH ×2 (08:22→20:53)
[2016-12-31] MEDS: ENOXAPARIN 40 MG/0.4 ML SYR SC SCH (08:22)
[2016-12-31] MEDS: PANTOPRAZOLE SODIUM 40 MG TAB PO SCH ×2 (08:22→20:53)
[2016-12-31] MEDS: CHOLECALCIFEROL VIT D3 1,000 UNITS TAB PO SCH (08:22)
[2016-12-31 08:33] LABS: ALANINE AMINOTRANSFERASE 28 IU/L (9-52); ALBUMIN 2.4 g/dL (3.5-5.0); ALKALINE PHOSPHATASE 160 IU/L (38-126); ANION GAP 11 mEq/L (8-16); ASPARTATE AMINOTRANSFERASE 72 IU/L (14-46); BILIRUBIN,TOTAL 1.8 mg/dL (0.1-1.4); CALCIUM 7.8 mg/dL (8.5-10.4); CARBON DIOXIDE 23 mEq/l (22-31); CHLORIDE 105 mEq/L (97-110); CREATININE 0.7 mg/dL (0.6-1.0); GLOMERULAR FILTRATION RATE > 60; GLUCOSE 138 mg/dL (70-100); MAGNESIUM 2.1 mg/dL (1.6-2.3); POTASSIUM 3.2 mEq/L (3.5-5.2); SODIUM 139 mEq/L (134-144); TOTAL PROTEIN 5.6 g/dL (6.3-8.2)
[2016-12-31 09:17] LABS: SCAN POSITIVE
[2016-12-31 09:20] LABS: PLATELET ESTIMATE ADEQUATE (ADEQ)
[2016-12-31 09:22] LABS: POLYCHROMASIA 1+
--- NOTE | 2016-12-31 10:06 | SOAPPROG ---
SOAP Progress Note Assessment/Plan: Assessment: 1. Nausea; resolved on Reglan and NG suction. 2. Ileus vs functional GOO; no endoscopic evidence of duodenal obstruction. 3. Pancreatitis; ideipathic vs related to narrowed pancreatic duct of unclear etiology; improved. 4. Metastatic lung cancer with liver and renal mets, and ascites; probable carcinomatosis. 5. Hospice care evaluation in progress; patient wanted to get home and limit further medical interventions. Plan: 1. Continue IV Reglan. 2. Clamp NG. 3. PO clears and advance as tolerated. 4. Home soon with Hospice Care if tolerates PO (off of NG suction). Jose Escoto MD 12/31/16 10:10 Subjective: CC: Ileus vs functional GOO. Interval HPI: Patient without nusea on IV Reglan. NG clamped with minimal return over last shift. Patient wants to get home off of any tubes and have Hospice Care. Objective: Vital Signs Temp Pulse Resp BP Pulse Ox 36.8 C 96 18 128/77 H 95 12/31/16 07:52 12/31/16 07:52 12/31/16 07:52 12/31/16 07:52 12/31/16 07:52 Laboratory Results 12/31/16 08:00 12/31/16 08:00 12/30/16 12/31/16 01/01/17 05:59 05:59 05:59 Intake Total 2514.4 2187 Output Total 3300 2800 Balance -785.6 -613 PT 14.8 SEC (12.0-15.0) 12/31/16 08:00 INR 1.16 (0.83-1.16) 12/31/16 08:00 Laboratory Tests 12/28/16 12/31/16 17:25 08:00 Total Bilirubin 1.8 H AST 72 H ALT 28 Alkaline Phosphatase 160 H Total Protein 5.6 L Albumin 2.4 L Lipase 888 H Physical Exam - Physical Exam General Appearance: alert, no apparent distress Respiratory: lungs clear, normal breath sounds Cardiac/Chest: regular rate, rhythm Abdomen: normal bowel sounds, non-tender, soft Skin: normal color Neuro/Psych: alert, normal mood/affect, oriented x 3 ICD10 Worksheet Patient Problems: Problems Problem Status Onset Abdominal pain Acute Palliative care encounter Acute Vomiting Acute Bone metastases Chronic Metastasis to kidney Chronic Metastatic cancer to brain Chronic Metastatic cancer to liver Chronic Metastatic lung cancer (metastasis from lung to other site) Chronic ~05/2015
[2016-12-31] MEDS: IPRATROPIUM/ALBUTEROL 3 ML DEYVIAL IH SCH ×2 (10:10→21:35)
--- NOTE | 2016-12-31 10:47 | HOSPPROG ---
Hospitalist Progress Note Assessment/Plan: DIAGNOSES: Status post acute upper GI bleed with Lorie-Olsen tear and duodenal ulcer identified - thses are treated and stable Ongoing refractory gastric fluid retention with pain and vomiting, requiring NG to suction, unknown etiology of this Acute pancreatitis, appears resolved, not certain what cause of pancreatitis was At present I do NOT think she had any gastric or bowel obsruction, more likely ileus; there had been concern early on that some of her symptoms were from obstruction, but this is not born out by mutliple radiology and endo studies Stage IV non-small cell lung cancer - metastasis to brain, liver, kidney Post Hemorrhagic Anemia, secondary to blood loss on admission: stable Possible post-obstructive pneumonitis based on images, however minimal respiratory symptoms and I wonder if this is atelectasis; stable off treatment I have reviewed in detail with Dr Escoto today. At this time she is acting like ongoing focal proximal ileus or gastroparesis without definite cause identified. She has been NG suction dependent for symptom control. Trial of reglan started 12/30 with NG still on suction went well overnight with some intake of fluids and small amount of pudding STUDIES DONE SO FAR: SBFT- no obstruction and no concerning findings though suboptimal study due to suction to NG during course of follow up images CT- scan of abdomen x2, no evidence of obstruction, ? focal ileus related to pancreatitis or other, ascites present HIDA- normal filling of GB and flow of contrast into small bowel, poor emptying of GB MRI of abdomen- pancreatitis, some narrowing of distal pancr. duct but no stone or tumor seen in pancreas EGD, x2: some focal thickening of a portion of duodenal wall but no mass or obstruction seen, 1.2 cm scope passed thru narrowed segment of duodenum PLANS: -goal at this time is to try to get her to point of being nondependent on NG suction for vomiting and abdominal pain. She would be going home with hospice care. Hope to get to where she does not need NG suction to accomplish this; if can't accomplish this may need to go home with tube to suction either NG or perc -continue trial of reglan but today with NG suction off -continue TPN now for nutrition -For now continue DVT prophylaxis measures, follow for any recurrent bleeding -increase activity as able I reviewed all of above w pt and her father at bedside, answered their questions. SUBJECTIVE: did well last night and able to take is some clear liquid, but NG suction has remained on. No side effects of reglan so far. OBJECTIVE Vitals reviewed: still with intermittent tachycardai, otherwise stable without fever Exam: alert oriented Looks more comfortable and relaxed today NG in place skin warm dry color ok resps not labored lungs clear BSs heart regular abd notably less distended and tender in the upper abdomen today limbs warm, no edema, iv site ok Objective: Vital Signs Temp Pulse Resp BP Pulse Ox 36.8 C 91 18 128/77 H 99 12/31/16 07:52 12/31/16 10:11 12/31/16 10:11 12/31/16 07:52 12/31/16 10:11 Laboratory Results 12/31/16 08:00 12/31/16 08:00 12/30/16 12/31/16 01/01/17 06:59 06:59 06:59 Intake Total 3214.4 1487 Output Total 4800 1300 Balance -1585.6 187 PT 14.8 SEC (12.0-15.0) 12/31/16 08:00 INR 1.16 (0.83-1.16) 12/31/16 08:00 ICD10 Worksheet Patient Problems: Problems Problem Status Onset Abdominal pain Acute Palliative care encounter Acute Vomiting Acute Bone metastases Chronic Metastasis to kidney Chronic Metastatic cancer to brain Chronic Metastatic cancer to liver Chronic Metastatic lung cancer (metastasis from lung to other site) Chronic ~05/2015
--- NOTE | 2016-12-31 11:19 | SOAPPROG ---
SOAP Progress Note Assessment/Plan: E&M for NSCLC * NSCLC with brain, lung, liver, kidney, and bone mets: Day 26 Cycle 4 docetaxel + ramicurimab. Disease is stable on CT and MRI but not tolerating therapy. Further chemotherapy choices are limited with <10% chance of working and temporary at best. Spoke with Dr. Bullock and he has studies available but she doesn't qualify for PFS and high lipase. I had a lengthy discussion with her and I agree with her decision to go home with comfort care. * Abd pain with vomiting: Due to functional dysmotility. Spoke with Dr. Manjarrez and trying to get NG tube out. * Pancreatitis secondary to metastatic involvement: Subjective: Met with palliative care and hoping to get things in place to go home in a couple of days. Objective: Vital Signs Temp Pulse Resp BP Pulse Ox 36.8 C 91 18 128/77 H 99 12/31/16 07:52 12/31/16 10:11 12/31/16 10:11 12/31/16 07:52 12/31/16 10:11 Laboratory Results 12/31/16 08:00 12/31/16 08:00 12/30/16 12/31/16 01/01/17 05:59 05:59 05:59 Intake Total 2514.4 2187 Output Total 3300 2800 Balance -785.6 -613 PT 14.8 SEC (12.0-15.0) 12/31/16 08:00 INR 1.16 (0.83-1.16) 12/31/16 08:00 - Time Spent With Patient Time Spent With Patient: >35 min Physical Exam - Physical Exam General Appearance: no apparent distress ICD10 Worksheet Patient Problems: Problems Problem Status Onset Abdominal pain Acute Palliative care encounter Acute Vomiting Acute Bone metastases Chronic Metastasis to kidney Chronic Metastatic cancer to brain Chronic Metastatic cancer to liver Chronic Metastatic lung cancer (metastasis from lung to other site) Chronic ~05/2015
[2016-12-31] MEDS: HYDROmorphONE/DILAUDID 2 MG TAB PO PRN ×2 (12:15→20:54)
[2016-12-31] MEDS ORDERED: FLU VACC QS 2017-18 (3YR+)/PF 0.5 ML SYR (FLUARIX QUAD) IM ONE ×2 (13:17→16:19)
--- NOTE | 2016-12-31 17:15 | ASMTCMCOM ---
CM Note CM Note Notes: Pt had palliative meeting yesterday with father and friends present. Decision made at that time by pt to go home with [facility] hospice who are currrently set up for palliative care at [place]. Today the Physical therapist worked with pt and suggested she may be a candidate for inpt rehab. PT said that pt was willing to try it. Met with pt and father to discuss this. Pt feels that a short imnpt rheab stay before she goes home might be good for her. Plan is for GORDON Danita to discuss with hospitalist tomorrow and he will out in ther oder if appropriate. C/M to follow. Date Signed: 12/31/2016 05:15 PM Electronically Signed By:Huma Huston LCSW
[2016-12-31] MEDS: TPN 1 EA BAG IV SCH (20:55)
[2017-01-01] MEDS: METOCLOPRAMIDE 10 MG/2 ML VIAL IVP SCH (01:13)
--- NOTE | 2017-01-01 02:53 | SOAPPROG ---
SOAP Progress Note Assessment/Plan: Assessment: 1. Nausea; resolved on Reglan, NG out x 12 hours. 2. Ileus vs functional GOO; no endoscopic evidence of duodenal obstruction. 3. Pancreatitis; idiopathic vs related to narrowed pancreatic duct of unclear etiology; improved. 4. Metastatic lung cancer with liver and renal mets, and ascites; probable carcinomatosis. 5. Hospice care evaluation in progress; patient wanted to get home and limit further medical interventions. Plan: 1. Change to PO Reglan. 2. Advance as tolerated. 4. Home soon with Hospice Care, I will sign off today. Jose Escoto MD 01/01/17 02:50 Subjective: CC: Ileus with N/V. Interval HPI: Patient without N/V since starting Reglan. NG out x 12 hours without recurrence of symptoms. Objective: Vital Signs Temp Pulse Resp BP Pulse Ox 36.8 C 99 18 128/87 H 95 01/01/17 00:00 01/01/17 00:00 01/01/17 00:00 01/01/17 00:00 01/01/17 00:00 Laboratory Results 12/31/16 08:00 12/31/16 08:00 12/30/16 12/31/16 01/01/17 05:59 05:59 05:59 Intake Total 2514.4 2187 2425 Output Total 3300 2800 0 Balance -785.6 -613 2425 PT 14.8 SEC (12.0-15.0) 12/31/16 08:00 INR 1.16 (0.83-1.16) 12/31/16 08:00 Physical Exam - Physical Exam General Appearance: alert, no apparent distress, mild distress Respiratory: lungs clear, normal breath sounds Cardiac/Chest: regular rate, rhythm Abdomen: normal bowel sounds, non-tender, distended Skin: warm/dry Neuro/Psych: alert, normal mood/affect, oriented x 3 ICD10 Worksheet Patient Problems: Problems Problem Status Onset Abdominal pain Acute Palliative care encounter Acute Vomiting Acute Bone metastases Chronic Metastasis to kidney Chronic Metastatic cancer to brain Chronic Metastatic cancer to liver Chronic Metastatic lung cancer (metastasis from lung to other site) Chronic ~05/2015
[2017-01-01] MEDS: METOCLOPRAMIDE 10 MG TAB PO SCH ×5 (03:08→21:40)
[2017-01-01 03:53] LABS: ABSOLUTE IMMATURE GRANULOCYTES 0.12 10^3/uL (0.00-0.10); ABSOLUTE NRBC COUNT 0.12 10^3/uL (0-0.01); ADD DIFF? NO; ADD MORPH? NO; ADD SCAN? NO; ATYPICAL LYMPHOCYTE FLAG 30 (0-99); FRAGMENT RBC FLAG 20 (0-99); HEMATOCRIT 23.2 % (38.0-47.0); HEMOGLOBIN 7.2 g/dL (12.6-16.3); LEFT SHIFT FLG 0 (0-99); LIPEMIA HEMOLYSIS FLAG 80 (0-99); MEAN CELL HEMOGLOBIN 28.3 pg (27.9-34.1); MEAN CELL VOLUME 91.3 fL (81.5-99.8); MEAN PLATELET VOLUME 10.9 fL (8.7-11.7); PLATELET CLUMPS FLAG 10 (0-99); PLATELET COUNT 253 10^3/uL (150-400); RED BLOOD CELL COUNT 2.54 10^6/uL (4.18-5.33); RED CELL DISTRIBUTION WIDTH 19.9 % (11.5-15.2)
[2017-01-01 04:03] LABS: INR 1.08 (0.83-1.16); PROTIME(PATIENT) 13.9 SEC (12.0-15.0)
[2017-01-01 04:04] LABS: APTT 34.4 SEC (23.0-38.0)
[2017-01-01 04:18] LABS: ALANINE AMINOTRANSFERASE 31 IU/L (9-52); ALBUMIN 2.3 g/dL (3.5-5.0); ALKALINE PHOSPHATASE 162 IU/L (38-126); ANION GAP 9 mEq/L (8-16); ASPARTATE AMINOTRANSFERASE 65 IU/L (14-46); BILIRUBIN,TOTAL 1.6 mg/dL (0.1-1.4); CALCIUM 7.5 mg/dL (8.5-10.4); CARBON DIOXIDE 23 mEq/l (22-31); CHLORIDE 105 mEq/L (97-110); CREATININE 0.6 mg/dL (0.6-1.0); GLOMERULAR FILTRATION RATE > 60; GLUCOSE 112 mg/dL (70-100); POTASSIUM 3.5 mEq/L (3.5-5.2); SODIUM 137 mEq/L (134-144); TOTAL PROTEIN 5.5 g/dL (6.3-8.2)
[2017-01-01] MEDS: HYDROmorphONE/DILAUDID 2 MG TAB PO PRN ×3 (04:19→21:41)
[2017-01-01] MEDS: IPRATROPIUM/ALBUTEROL 3 ML DEYVIAL IH SCH ×2 (09:11→20:07)
[2017-01-01] MEDS: PANTOPRAZOLE SODIUM 40 MG TAB PO SCH ×2 (10:10→21:40)
[2017-01-01] MEDS: SENNOSIDES/DOCUSATE SODIUM TAB PO SCH ×2 (10:10→21:40)
[2017-01-01] MEDS: ENOXAPARIN 40 MG/0.4 ML SYR SC SCH (10:10)
--- NOTE | 2017-01-01 11:34 | HOSPPROG ---
Hospitalist Progress Note Assessment/Plan: 51 yo female with known Stage IV lung Ca metastatic to liver, brain, kidney; s/ p UGI bleed with carloz Colby tear; now with persistent gastric fluid retention. Patient is new to me today DIAGNOSES: Status post acute upper GI bleed with Carloz-Olsen tear and duodenal ulcer identified - thses are treated and stable Ongoing refractory gastric fluid retention with pain and vomiting, requiring NG to suction, unknown etiology of this Acute pancreatitis, appears resolved, not certain what cause of pancreatitis was , probably metastatic disease At present I do NOT think she had any gastric or bowel obsruction, more likely ileus; there had been concern early on that some of her symptoms were from obstruction, but this is not born out by mutliple radiology and endo studies Stage IV non-small cell lung cancer - metastasis to brain, liver, kidney. Date 20/10 cycle 4 docetaxel + ramicurimab. Disease is stable on CT and MRI but not tolerating therapy. Patient desires to regain strength, discharge to inpatient rehab, then home with comfort measures. Oncology does not believe whe will tolerate further therapy. Post Hemorrhagic Anemia, secondary to blood loss on admission: stable Possible post-obstructive pneumonitis based on images, however minimal respiratory symptoms and I wonder if this is atelectasis; stable off treatment I have reviewed in detail with Dr Escoto today. At this time she is acting like ongoing focal proximal ileus or gastroparesis without definite cause identified. Oncology is not sure but believes the gastroparesis is related to metastatic disease. She has been NG suction dependent for symptom control. Trial of reglan started 12/30 with NG still on suction went well overnight with some intake of fluids and small amount of pudding STUDIES DONE SO FAR: SBFT- no obstruction and no concerning findings though suboptimal study due to suction to NG during course of follow up images CT- scan of abdomen x2, no evidence of obstruction, ? focal ileus related to pancreatitis or other, ascites present HIDA- normal filling of GB and flow of contrast into small bowel, poor emptying of GB MRI of abdomen- pancreatitis, some narrowing of distal pancr. duct but no stone or tumor seen in pancreas EGD, x2: some focal thickening of a portion of duodenal wall but no mass or obstruction seen, 1.2 cm scope passed thru narrowed segment of duodenum PLANS: -goal at this time is to try to get her to point of being nondependent on NG suction for vomiting and abdominal pain. She would be going home with hospice care or perhaps to inpatient rehab for a few days. Hope to get to where she does not need NG suction to accomplish this; if can't accomplish this may need to go home with tube to suction either NG or perc -continue trial of reglan but today with NG suction off -continue TPN now for nutrition -For now continue DVT prophylaxis measures, follow for any recurrent bleeding -increase activity as able I reviewed all of above w pt and her father at bedside, answered their questions. Case discussed with Dr Mckeon for Oncology Subjective: No complaints of chest pain or shortness of breath. She reports her abdominal discomfort is improved post a bowel movement. No fever chills Objective: Vital Signs Temp Pulse Resp BP Pulse Ox 36.8 C 96 16 132/87 H 94 01/01/17 03:41 01/01/17 09:16 01/01/17 09:16 01/01/17 03:41 01/01/17 09:16 Laboratory Results 01/01/17 03:45 01/01/17 03:45 12/31/16 01/01/17 01/02/17 05:59 05:59 05:59 Intake Total 2187 3953 Output Total 2800 0 Balance -613 3953 PT 13.9 SEC (12.0-15.0) 01/01/17 03:45 INR 1.08 (0.83-1.16) 01/01/17 03:45 - Time Spent With Patient Time Spent with Patient: greater than 35 minutes Time Spent with Patient: Greater than 35 minutes spent on this patients care, greater than 50% of time spent counseling, educating, and coordinating care regarding the above mentioned plan. - Pending Discharge Pending Discharge Within 24 Hours: Yes Pending Discharge Date: 01/02/17 Pending Discharge Time: 11:00 - Physical Exam Constitutional: no apparent distress, chronically ill appearing Eyes: PERRL, pale conjunctiva Ears, Nose, Mouth, Throat: moist mucous membranes, hearing normal, ears appear normal, no oral mucosal ulcers Cardiovascular: regular rate and rhythym, no murmur, rub, or gallop Respiratory: no respiratory distress, no rales or rhonchi, other (Reduced air movement on the right with increased dullness) Gastrointestinal: normoactive bowel sounds, soft, non-tender abdomen, no palpable masses, distension Genitourinary: no bladder fullness Skin: warm Musculoskeletal: generalized weakness Neurologic: AAOx3, CN II-XII Intact Psychiatric: interacting appropriately ICD10 Worksheet Patient Problems: Problems Problem Status Onset Abdominal pain Acute Palliative care encounter Acute Vomiting Acute Bone metastases Chronic Metastasis to kidney Chronic Metastatic cancer to brain Chronic Metastatic cancer to liver Chronic Metastatic lung cancer (metastasis from lung to other site) Chronic ~05/2015
[2017-01-01] MEDS ORDERED: D50W 25 GM/50 ML VIAL IVP PRN (12:46)
[2017-01-01] MEDS ORDERED: D50W 25 GM/50 ML SYR IVP PRN (12:46)
[2017-01-01] MEDS ORDERED: PARAMETERS MISC PRN (12:46)
--- NOTE | 2017-01-01 13:59 | SOAPPROG ---
SOAP Progress Note Assessment/Plan: E&M for NSCLC * NSCLC with brain, lung, liver, kidney, and bone mets: Day 27 Cycle 4 docetaxel + ramicurimab. Disease stable on CT and MRI but not tolerating therapy. Further chemotherapy choices are limited with <10% chance of working and temporary at best. Dr. Bullock has studies available but she doesn't qualify for poor PFS and high lipase. I had a lengthy discussion with her and I agree with her decision to go home with comfort care. * Abd pain with vomiting: Due to functional dysmotility. NG tube out. Encouraged her to ambulate and avoid PO intake * Pancreatitis secondary to metastatic involvement: Subjective: NG tube out; feeling bloated. BM last night. No new problems. Father with her. Objective: Vital Signs Temp Pulse Resp BP Pulse Ox 36.8 C 108 H 15 136/88 H 94 01/01/17 12:00 01/01/17 12:00 01/01/17 12:00 01/01/17 12:00 01/01/17 12:00 Laboratory Results 01/01/17 03:45 01/01/17 03:45 12/31/16 01/01/17 01/02/17 05:59 05:59 05:59 Intake Total 2187 3953 Output Total 2800 0 Balance -613 3953 PT 13.9 SEC (12.0-15.0) 01/01/17 03:45 INR 1.08 (0.83-1.16) 01/01/17 03:45 Physical Exam - Physical Exam General Appearance: no apparent distress Abdomen: distended, No normal bowel sounds (decreased but present) ICD10 Worksheet Patient Problems: Problems Problem Status Onset Abdominal pain Acute Palliative care encounter Acute Vomiting Acute Bone metastases Chronic Metastasis to kidney Chronic Metastatic cancer to brain Chronic Metastatic cancer to liver Chronic Metastatic lung cancer (metastasis from lung to other site) Chronic ~05/2015
[2017-01-01] MEDS: INSULIN REGULAR, HUMAN 100 UNIT/1 ML VIAL LOW SC SCH ×2 (18:14→23:25)
[2017-01-01] MEDS: NS 1,000 ML IV SCH (21:33)
[2017-01-01] MEDS: TPN 1 EA BAG IV SCH (21:39)
[2017-01-02] MEDS: HYDROmorphONE/DILAUDID 2 MG/ML INJ IVP PRN ×4 (00:42→14:57)
[2017-01-02] MEDS: HYDROmorphONE/DILAUDID 2 MG TAB PO PRN ×3 (03:58→17:02)
[2017-01-02 04:38] LABS: % IMMATURE GRANULYOCYTES 0.9 % (0.0-1.1); ABSOLUTE IMMATURE GRANULOCYTES 0.12 10^3/uL (0.00-0.10); ABSOLUTE NRBC COUNT 0.07 10^3/uL (0-0.01); ADD DIFF? NO; ADD MORPH? YES; ADD SCAN? NO; ATYPICAL LYMPHOCYTE FLAG 30 (0-99); FRAGMENT RBC FLAG 20 (0-99); HEMATOCRIT 22.3 % (38.0-47.0); LEFT SHIFT FLG 0 (0-99); LIPEMIA HEMOLYSIS FLAG 80 (0-99); MEAN CELL HEMOGLOBIN 28.3 pg (27.9-34.1); MEAN CELL HEMOGLOBIN CONCENTR. 30.9 g/dL (32.4-36.7); MEAN CELL VOLUME 91.4 fL (81.5-99.8); NRBC-AUTO% 0.5 % (0.0-0.2); PLATELET CLUMPS FLAG 0 (0-99); PLATELET COUNT 211 10^3/uL (150-400); RED BLOOD CELL COUNT 2.44 10^6/uL (4.18-5.33); RED CELL DISTRIBUTION WIDTH 19.9 % (11.5-15.2)
[2017-01-02 04:39] LABS: HEMOGLOBIN 6.9 g/dL (12.6-16.3)
[2017-01-02 04:47] LABS: INR 1.08 (0.83-1.16); PROTIME(PATIENT) 13.9 SEC (12.0-15.0)
[2017-01-02 04:48] LABS: APTT 34.4 SEC (23.0-38.0)
[2017-01-02 04:53] LABS: ALANINE AMINOTRANSFERASE 35 IU/L (9-52); ALBUMIN 2.2 g/dL (3.5-5.0); ALKALINE PHOSPHATASE 219 IU/L (38-126); ANION GAP 9 mEq/L (8-16); ASPARTATE AMINOTRANSFERASE 59 IU/L (14-46); BILIRUBIN,TOTAL 1.3 mg/dL (0.1-1.4); CALCIUM 7.6 mg/dL (8.5-10.4); CARBON DIOXIDE 23 mEq/l (22-31); CHLORIDE 105 mEq/L (97-110); CREATININE 0.6 mg/dL (0.6-1.0); GLOMERULAR FILTRATION RATE > 60; GLUCOSE 129 mg/dL (70-100); MAGNESIUM 2.1 mg/dL (1.6-2.3); POTASSIUM 3.9 mEq/L (3.5-5.2); SODIUM 137 mEq/L (134-144); TOTAL PROTEIN 5.2 g/dL (6.3-8.2); TRIGLYCERIDE 158 mg/dL (35-135)
[2017-01-02] MEDS: METOCLOPRAMIDE 10 MG TAB PO SCH ×4 (04:56→21:46)
[2017-01-02 05:01] LABS: HYPOCHROMIA 1+; MACROCYTES 1+; MICROCYTES 1+
[2017-01-02 05:03] LABS: PLATELET ESTIMATE ADEQUATE (ADEQ); POLYCHROMASIA 1+
[2017-01-02] MEDS: IPRATROPIUM/ALBUTEROL 3 ML DEYVIAL IH SCH ×2 (08:51→15:44)
[2017-01-02] MEDS: INSULIN REGULAR, HUMAN 100 UNIT/1 ML VIAL LOW SC SCH ×4 (09:08→22:01)
[2017-01-02] MEDS: PANTOPRAZOLE SODIUM 40 MG TAB PO SCH ×2 (09:10→21:45)
[2017-01-02] MEDS: SENNOSIDES/DOCUSATE SODIUM TAB PO SCH ×2 (09:10→21:45)
[2017-01-02] MEDS: ENOXAPARIN 40 MG/0.4 ML SYR SC SCH (09:10)
--- NOTE | 2017-01-02 10:41 | HOSPPROG ---
Hospitalist Progress Note Assessment/Plan: 51 yo female with known Stage IV lung Ca metastatic to liver, brain, kidney; s/ p UGI bleed with carloz Colby tear; now with persistent gastric fluid retention. Patient is new to me today DIAGNOSES: Status post acute upper GI bleed with Carloz-Olsen tear and duodenal ulcer identified - thses are treated and stable Ongoing refractory gastric fluid retention with pain and vomiting, requiring NG to suction, unknown etiology of this. This is probably related to her persistent pancreatitis secondary to metastatic disease Acute pancreatitis, appears resolved, not certain what cause of pancreatitis was , probably metastatic disease Left-sided chest pain, new problem: This has been developing for the last 12- 24 hours. Her oxygen need is not risen and the pain is not exactly pleuritic. I do hear friction rub on exam and some egophony. It is possible this is tumor involvement in the pleura. The major problem here is her pain. I will start a [employer] pain pump of Dilaudid. Stage IV non-small cell lung cancer - metastasis to brain, liver, kidney. Date 20/10 cycle 4 docetaxel + ramicurimab. Disease is stable on CT and MRI but not tolerating therapy. Patient desires to regain strength, discharge to inpatient rehab, then home with comfort measures. Oncology does not believe whe will tolerate further therapy. Post Hemorrhagic Anemia, secondary to blood loss on admission: Hemoglobin had been stable at approximately 7 for several days and now is fallen to 6.9. Will transfuse 2 units PRBC Possible post-obstructive pneumonitis based on images, however minimal respiratory symptoms and I wonder if this is atelectasis; stable off treatment At this time she is acting like ongoing focal proximal ileus or gastroparesis without definite cause identified. Oncology is not sure but believes the gastroparesis is related to metastatic disease. She has been NG suction dependent for symptom control. Reglan has not significantly changed her nausea and vomiting. STUDIES DONE SO FAR: SBFT- no obstruction and no concerning findings though suboptimal study due to suction to NG during course of follow up images CT- scan of abdomen x2, no evidence of obstruction, ? focal ileus related to pancreatitis or other, ascites present HIDA- normal filling of GB and flow of contrast into small bowel, poor emptying of GB MRI of abdomen- pancreatitis, some narrowing of distal pancr. duct but no stone or tumor seen in pancreas EGD, x2: some focal thickening of a portion of duodenal wall but no mass or obstruction seen, 1.2 cm scope passed thru narrowed segment of duodenum PLANS: -goal at this time is to try to get her to point of being nondependent on NG suction for vomiting and abdominal pain. She would be going home with hospice care or perhaps to inpatient rehab for a few days. Hope to get to where she does not need NG suction to accomplish this; if can't accomplish this may need to go home with tube to suction either NG or perc -continue trial of reglan but today with NG suction off -continue TPN now for nutrition -For now continue DVT prophylaxis measures, follow for any recurrent bleeding -increase activity as able I have reviewed the above findings with her father at the bedside and discussed the care and plan with Keiry Go Time 40 minutes Subjective: Reporting left-sided chest pain. She is also experiencing nausea and vomiting. Objective: Vital Signs Temp Pulse Resp BP Pulse Ox 36.7 C 106 H 16 139/96 H 95 01/02/17 08:55 01/02/17 08:55 01/02/17 08:55 01/02/17 08:55 01/02/17 08:55 Laboratory Results 01/02/17 04:30 01/02/17 04:30 01/01/17 01/02/17 01/03/17 05:59 05:59 05:59 Intake Total 3953 2393 Output Total 0 Balance 3953 2393 PT 13.9 SEC (12.0-15.0) 01/02/17 04:30 INR 1.08 (0.83-1.16) 01/02/17 04:30 Selected Entries 01/02/17 01/02/17 01/02/17 00:00 04:00 08:51 Heart Rate 110 H 112 H 104 H Blood Pressure 148/96 H 140/94 H 01/02/17 08:55 Heart Rate 106 H Blood Pressure 139/96 H Laboratory Tests 12/25/16 12/31/16 01/01/17 04:35 08:00 03:45 WBC 14.03 H 14.79 H 12.52 H Hgb 7.6 L RDW 19.5 H Albumin Triglycerides 01/02/17 01/02/17 04:30 04:30 WBC 13.38 H Hgb 6.9 L RDW 19.9 H Albumin 2.2 L Triglycerides 158 H - Time Spent With Patient Time Spent with Patient: greater than 35 minutes Time Spent with Patient: Greater than 35 minutes spent on this patients care, greater than 50% of time spent counseling, educating, and coordinating care regarding the above mentioned plan. - Pending Discharge Pending Discharge Within 24 Hours: No Pending Discharge Within 48 Hours: No - Physical Exam Constitutional: chronically ill appearing, uncomfortable Eyes: PERRL, anicteric sclera Ears, Nose, Mouth, Throat: moist mucous membranes, hearing normal Cardiovascular: regular rate and rhythym, no murmur, rub, or gallop Respiratory: expiratory wheeze, inspiratory crackles, bronchial breath sounds, rhonchi, other (Possible pleural friction rub on the left side.) Gastrointestinal: normoactive bowel sounds, distension, other (Hypoactive bowel sounds) Genitourinary: no bladder fullness Skin: warm Musculoskeletal: generalized weakness Neurologic: AAOx3, CN II-XII Intact, other (Appears in pain) Psychiatric: interacting appropriately ICD10 Worksheet Patient Problems: Problems Problem Status Onset Palliative care encounter Acute Metastasis to kidney Chronic Metastatic cancer to brain Chronic Metastatic cancer to liver Chronic Bone metastases Chronic Abdominal pain Acute Vomiting Acute Metastatic lung cancer (metastasis from lung to other site) Chronic ~05/2015
--- NOTE | 2017-01-02 11:34 | SOAPPROG ---
MYRIAM Progress Note Assessment/Plan: Assessment: 1.) NSCLC- with brain/liver/skeletal mets on palliative tx. plan from here. She has had four cycles of Docetaxel + Ramicurumab. Pt interested in home palliative care and TPN. 2.) Anemia due to prior chemotherapy and secondary to underlying disease. 3.) Proximal ileus 4.) On TPN 5.) Prior UGIB 6.) Pancreatitis Plan: 1.) Encourage po intake. 2.) I think that transfusion support is reasonable since her goals are to be able to be comfortable at discharge. 3.) Continue analgesics 4.) Follow/encourage oral calorie count. 01/02/17 11:30 Subjective: Having some pain at LL anterior chest wall. Adequate analgesic relief. Attempting some po intake. Objective: VSS, afebrile, in NAD in bedside lounge chair, but looks uncomfortable Father at the bedside. HEENT- partial alopecia, anicteric, no oral lesions Neck- supple Chest- decreased L basilar breath sounds, no pleural friction rub. CVS- RSR, no extra HS ABD- nondistended, BS+, NT, no mass or ascites EXT- warm well perfused Vital Signs Temp Pulse Resp BP Pulse Ox 36.7 C 106 H 16 139/96 H 95 01/02/17 08:55 01/02/17 08:55 01/02/17 08:55 01/02/17 08:55 01/02/17 08:55 Laboratory Results 01/02/17 04:30 01/02/17 04:30 01/01/17 01/02/17 01/03/17 05:59 05:59 05:59 Intake Total 3953 2393 Output Total 0 Balance 3953 2393 PT 13.9 SEC (12.0-15.0) 01/02/17 04:30 INR 1.08 (0.83-1.16) 01/02/17 04:30 ICD10 Worksheet Patient Problems: Problems Problem Status Onset Abdominal pain Acute Palliative care encounter Acute Vomiting Acute Bone metastases Chronic Metastasis to kidney Chronic Metastatic cancer to brain Chronic Metastatic cancer to liver Chronic Metastatic lung cancer (metastasis from lung to other site) Chronic ~05/2015
[2017-01-02] MEDS: NS 1,000 ML IV SCH (11:49)
--- NOTE | 2017-01-02 14:41 | ASMTCMCOM ---
CM Note CM Note Notes: Palliative RN, Caitie, spoke with patient today and patient has decided that she would like to have [facility] hospice at home. C/M contacted [facility] and and they said that Shirin can be here at 3:00pm on Monday01/03/2017 to meet with patient and her mother and sister who will arrive tomorrow morning. Inpatient rehab called and said that Patient is not appropriate for them at this time. Patient to be transfused today. Case Management will follow. Date Signed: 01/02/2017 02:40 PM Electronically Signed By:GUERRERO Corbett
--- NOTE | 2017-01-02 15:52 | PDPCPN ---
Palliative Care Progress Note Assessment/Plan: HPI: Adriana Anderson is a 51 yo female with metastatic lung cancer admitted to the hospital for nausea/vomiting 2/2 gastric outlet obstruction and pancreatitis. Follows with Dr Mckeon at [facility] undergoing treatment. S/p EGD x2 with intital improvement in obstruction. Clinically has worsened with likely ileus on scheduled reglan as well as TPN. Faby seen this AM, she was having upper left abdominal pain, using dilaudid with some relief. Remains on scheduled reglan with NG tube removed over the weekend but with increasing abdominal bloating and discomfort. Is still on TPN due to poor oral nutrition. Discussed this may never change and hope is for as much quality of life at home instead of waiting in the hospital for resolution that may not occur. Discussed hospice care management in aggressive symptom management and support at home. She would like her family to meet with hospice care as well for potential discharge with hospice soon. Assessment: Physical: - Pain: abdominal pain - dilaudid 1-2 mg PO Q4hr PRN - IV dilaudid PRN for severe acute pain - Nausea: worse again - with NG tube - zofran or compazine PRN - on scheduled reglan - constipation - at risk with opiates - senna and colace daily while on opiates Emotional/psychological: has a lot of support from friends and family Advanced Care Planning: Is patient decisional?: Yes Code Status: Full MD POA: Mauar Vaughn is MDPOA. Plan: More family coming into town Monday Morning and would like to meet with hospice care. Faby does not feel rehab at this time will truly benefit her based on her wishes to be at home with family. Subjective: i have left upper abdominal pain Objective: Vital Signs Temp Pulse Resp BP Pulse Ox 37.1 C 114 H 17 138/94 H 95 01/02/17 11:31 01/02/17 11:31 01/02/17 11:31 01/02/17 11:31 01/02/17 11:31 Laboratory Results 01/02/17 04:30 01/02/17 04:30 01/01/17 01/02/17 01/03/17 05:59 05:59 05:59 Intake Total 3953 2393 Output Total 0 Balance 3953 2393 PT 13.9 SEC (12.0-15.0) 01/02/17 04:30 INR 1.08 (0.83-1.16) 01/02/17 04:30 Physical Exam - Physical Exam General Appearance: alert, mild distress Respiratory: No respiratory distress, No accessory muscle use Skin: normal color, warm/dry Extremities: No pedal edema Neuro/Psych: alert, oriented x 3 ICD10 Worksheet Patient Problems: Problems Problem Status Onset Abdominal pain Acute Palliative care encounter Acute Vomiting Acute Bone metastases Chronic Metastasis to kidney Chronic Metastatic cancer to brain Chronic Metastatic cancer to liver Chronic Metastatic lung cancer (metastasis from lung to other site) Chronic ~05/2015 - ICD10 Problem Qualifiers (1) Palliative care encounter
[2017-01-02] MEDS: ACETAMINOPHEN 325 MG TAB PO PRN (15:53)
[2017-01-02] MEDS ORDERED: HYDROmorphONE/DILAUDID 1 MG/ML INJ IVP PRN (16:16)
[2017-01-02] MEDS ORDERED: HYDROmorphONE/DILAUDID 6 MG/30 ML PCA IV PRN (17:21)
[2017-01-02] MEDS ORDERED: NALOXONE HCL 0.4 MG/ML INJ IVP PRN (17:21)
[2017-01-02] MEDS ORDERED: HYDROmorphONE/DILAUDID 1 MG/ML INJ IVP ONE (17:21)
[2017-01-02] MEDS: IPRATROPIUM/ALBUTEROL 3 ML DEYVIAL IH PRN (20:38)
[2017-01-02] MEDS: TPN 1 EA BAG IV SCH (21:47)
[2017-01-02] MEDS: CEPACOL LOZENGE PO PRN ×2 (21:57→23:32)
[2017-01-03] MEDS: ONDANSETRON 4 MG/2 ML VIAL IVP PRN ×2 (02:14→06:11)
[2017-01-03] MEDS: CEPACOL LOZENGE PO PRN ×2 (02:14→02:54)
[2017-01-03] MEDS: LORazepam 2 MG/ML INJ IVP PRN ×3 (02:54→14:38)
[2017-01-03] MEDS: METOCLOPRAMIDE 10 MG TAB PO SCH ×4 (05:01→21:15)
[2017-01-03 05:22] LABS: % IMMATURE GRANULYOCYTES 1.4 % (0.0-1.1); ABSOLUTE IMMATURE GRANULOCYTES 0.28 10^3/uL (0.00-0.10); ABSOLUTE NRBC COUNT 0.08 10^3/uL (0-0.01); ADD DIFF? NO; ADD MORPH? NO; ADD SCAN? NO; ATYPICAL LYMPHOCYTE FLAG 40 (0-99); FRAGMENT RBC FLAG 20 (0-99); HEMATOCRIT 32.5 % (38.0-47.0); HEMOGLOBIN 10.3 g/dL (12.6-16.3); LEFT SHIFT FLG 10 (0-99); LIPEMIA HEMOLYSIS FLAG 80 (0-99); MEAN CELL HEMOGLOBIN 27.8 pg (27.9-34.1); MEAN CELL HEMOGLOBIN CONCENTR. 31.7 g/dL (32.4-36.7); MEAN CELL VOLUME 87.6 fL (81.5-99.8); NRBC-AUTO% 0.4 % (0.0-0.2); PLATELET CLUMPS FLAG 20 (0-99); PLATELET COUNT 241 10^3/uL (150-400); RED BLOOD CELL COUNT 3.71 10^6/uL (4.18-5.33); RED CELL DISTRIBUTION WIDTH 19.9 % (11.5-15.2)
[2017-01-03 05:28] LABS: ALANINE AMINOTRANSFERASE 39 IU/L (9-52); ALBUMIN 2.3 g/dL (3.5-5.0); ALKALINE PHOSPHATASE 291 IU/L (38-126); ANION GAP 12 mEq/L (8-16); ASPARTATE AMINOTRANSFERASE 59 IU/L (14-46); BILIRUBIN,TOTAL 1.7 mg/dL (0.1-1.4); CALCIUM 7.5 mg/dL (8.5-10.4); CARBON DIOXIDE 20 mEq/l (22-31); CHLORIDE 107 mEq/L (97-110); CREATININE 0.6 mg/dL (0.6-1.0); GLOMERULAR FILTRATION RATE > 60; GLUCOSE 108 mg/dL (70-100); SODIUM 139 mEq/L (134-144); TOTAL PROTEIN 5.6 g/dL (6.3-8.2)
[2017-01-03] MEDS: IPRATROPIUM/ALBUTEROL 3 ML DEYVIAL IH PRN ×2 (05:50→15:00)
[2017-01-03] MEDS: INSULIN REGULAR, HUMAN 100 UNIT/1 ML VIAL LOW SC SCH ×4 (07:49→21:57)
--- NOTE | 2017-01-03 08:24 | HOSPPROG ---
Hospitalist Progress Note Assessment/Plan: 51 yo female with known Stage IV lung Ca metastatic to liver, brain, kidney; s/ p UGI bleed with carloz Colby tear; now with persistent gastric fluid retention and probably persistent pancreatitis 2/2 metastatic disease DIAGNOSES: Status post acute upper GI bleed with Carloz-Olsen tear and duodenal ulcer identified - Anemia is slowly developing and Hgb 10 post . Transfusion yesterday 2 units, Hgb augmented nicely and appropriately. Ongoing refractory gastric fluid retention with pain and vomiting, requiring NG to suction, unknown etiology of this. This is probably related to her persistent pancreatitis secondary to metastatic disease Acute pancreatitis, appears persistent now, probably metastatic disease Left-sided chest pain, new problem: with new hypoxemia and respiratory distress : appear fluid overload. CXR show probable cardiomegaly without significant pulmonary congestion, bilateral effusions R>L; The possibility of a pneumonia probably post obstructive exists. She is on Invanz Plan: Lasix; invanz, BD, Stage IV non-small cell lung cancer - metastasis to brain, liver, kidney. Date 20/10 cycle 4 docetaxel + ramicurimab. Disease is stable on CT and MRI but not tolerating therapy. Patient desires to regain strength, discharge to inpatient rehab, then home with comfort measures. Oncology does not believe whe will tolerate further therapy. Post Hemorrhagic Anemia, secondary to blood loss on admission: Hgb now stable at 10 post 2 units PRBC on 01/02 Possible post-obstructive pneumonitis based on images, however minimal respiratory symptoms and I wonder if this is atelectasis; stable off treatment -Nutrition: unable to eat 2/2 persistent Nausea and vomiting 2/2 pancreatitis. Now on TPN STUDIES DONE SO FAR: SBFT- no obstruction and no concerning findings though suboptimal study due to suction to NG during course of follow up images CT- scan of abdomen x2, no evidence of obstruction, ? focal ileus related to pancreatitis or other, ascites present HIDA- normal filling of GB and flow of contrast into small bowel, poor emptying of GB MRI of abdomen- pancreatitis, some narrowing of distal pancr. duct but no stone or tumor seen in pancreas EGD, x2: some focal thickening of a portion of duodenal wall but no mass or obstruction seen, 1.2 cm scope passed thru narrowed segment of duodenum PLANS: -Goals: patient wants to go home. A Hospice evaluation and plan tomorrow at 3pm. -Code: full code currently; will discuss tomorrow at hospice meeting I have reviewed the above findings with her father at the bedside and discussed the care and plan with [facility] nurse. Case discussed with oncology; I personally reviewed the x-rays on [employer] system and with readiology Time 60 minutes Subjective: severe respiratory distress; some left sided pain Objective: Vital Signs Temp Pulse Resp BP Pulse Ox 36.3 C 123 H 17 149/103 H 90 L 01/03/17 08:05 01/03/17 08:05 01/03/17 08:05 01/03/17 08:05 01/03/17 08:05 Laboratory Results 01/03/17 05:00 01/03/17 05:00 01/02/17 01/03/17 01/04/17 05:59 05:59 05:59 Intake Total 2393 1563 Balance 2393 1563 PT 13.9 SEC (12.0-15.0) 01/02/17 04:30 INR 1.08 (0.83-1.16) 01/02/17 04:30 Laboratory Tests 01/01/17 01/02/17 01/03/17 03:45 04:30 05:00 Hgb 7.2 L 6.9 L 10.3 L - Time Spent With Patient Time Spent with Patient: greater than 35 minutes Time Spent with Patient: Greater than 35 minutes spent on this patients care, greater than 50% of time spent counseling, educating, and coordinating care regarding the above mentioned plan. - Pending Discharge Pending Discharge Within 24 Hours: No Pending Discharge Within 48 Hours: No - Physical Exam Constitutional: other (Appears in respiratory distress weak and unable to speak) Eyes: PERRL Ears, Nose, Mouth, Throat: moist mucous membranes, hearing normal, no oral mucosal ulcers Cardiovascular: regular rate and rhythym, systolic murmur, tachycardia Respiratory: reduced air movement, expiratory wheeze, inspiratory crackles, bronchial breath sounds, respiratory distress, rhonchi, other (Left-sided chest wall or pleuritic pain.) Gastrointestinal: normoactive bowel sounds, soft, non-tender abdomen Genitourinary: no bladder fullness, other (No Hogan) Skin: warm Musculoskeletal: generalized weakness Neurologic: AAOx3, CN II-XII Intact ICD10 Worksheet Patient Problems: Problems Problem Status Onset Abdominal pain Acute Palliative care encounter Acute Vomiting Acute Bone metastases Chronic Metastasis to kidney Chronic Metastatic cancer to brain Chronic Metastatic cancer to liver Chronic Metastatic lung cancer (metastasis from lung to other site) Chronic ~05/2015
[2017-01-03] MEDS: IPRATROPIUM/ALBUTEROL 3 ML DEYVIAL IH SCH ×2 (10:05→20:22)
[2017-01-03] MEDS ORDERED: FUROSEMIDE 20 MG/2 ML VIAL IVP ONE (10:27)
[2017-01-03] MEDS: SENNOSIDES/DOCUSATE SODIUM TAB PO SCH ×2 (10:51→21:16)
[2017-01-03] MEDS: ENOXAPARIN 40 MG/0.4 ML SYR SC SCH (10:52)
--- NOTE | 2017-01-03 10:52 | ASMTCMCOM ---
CM Note CM Note Notes: Discussed with nurse that patient had conversation with other C/M on to change release manager from Palliative to hospice with [facility]. Family had wanted to wait to have hospice meeting until mother and sister arrived on Monday01/05/17. [facility] scheduled to meet with them on . at 3:00pm. Case management will continue to follow. Date Signed: 01/03/2017 10:52 AM Electronically Signed By:GUERRERO Corbett
[2017-01-03] MEDS: ERTAPENEM 1 GM in NS 100 ML IV SCH (11:12)
[2017-01-03] MEDS: PANTOPRAZOLE SODIUM 40 MG TAB PO SCH ×2 (11:53→21:16)
--- NOTE | 2017-01-03 12:02 | SOAPPROG ---
SOAP Progress Note Assessment/Plan: Assessment: 1.) NSCLC- with brain/liver/skeletal mets on palliative tx. plan from here. She has had four cycles of Docetaxel + Ramicurumab. Pt interested in home palliative care and TPN. 2.) Anemia due to prior chemotherapy and secondary to underlying disease. 3.) Proximal ileus 4.) On TPN 5.) Prior UGIB 6.) Pancreatitis- needing NGT GI decompression 7.) Palliative Care planning: apparently, additional family members coming in tomorrow to discuss plans and possible Hospice care. Limited survival expected. She should consider DNR status and comfort measures only. Await family member input. 8.) Tachypnea/dyspnea: Will add second dose of furosemide later today. Pt. with scant resp. secretions. Plan: 1.) Encourage po intake. 2.) I think that transfusion support is reasonable since her goals are to be able to be comfortable at discharge. 3.) Continue analgesics 4.) Follow/encourage oral calorie count. 5.) Furosemide this afternoon- 2nd dose following transfusion. Pt likely vol. overloaded from transfusion. 01/03/17 12:02 Subjective: Quite uncomfortable from respiratory sx. and from NGT discomfort and abd. pain with N/V. Father at bedside and expresses his concern. Objective: Looks quite uncomfortable with tachypnea, has face mask oxygen in place VSS, sinus tachy HEENT- pale, anicteric Neck- supple Chest- coarse upper airway rhonchi bilaterally, tachypneic. CVS- Sinus tachy, RR ABD- BS with diminished bowel sounds, mildly distended EXT- edematous Labs as noted here. Hgb up to 10.3, Lipase 1214, T. bili 1.7, alk phos elevated. WBC 20,000 Vital Signs Temp Pulse Resp BP Pulse Ox 36.3 C 127 H 17 149/102 H 90 L 01/03/17 08:05 01/03/17 10:39 01/03/17 10:39 01/03/17 10:39 01/03/17 10:39 Laboratory Results 01/03/17 05:00 01/03/17 05:00 01/02/17 01/03/17 01/04/17 05:59 05:59 05:59 Intake Total 2393 1563 Balance 2393 1563 PT 13.9 SEC (12.0-15.0) 01/02/17 04:30 INR 1.08 (0.83-1.16) 01/02/17 04:30 ICD10 Worksheet Patient Problems: Problems Problem Status Onset Abdominal pain Acute Palliative care encounter Acute Vomiting Acute Bone metastases Chronic Metastasis to kidney Chronic Metastatic cancer to brain Chronic Metastatic cancer to liver Chronic Metastatic lung cancer (metastasis from lung to other site) Chronic ~05/2015
[2017-01-03] MEDS ORDERED: FUROSEMIDE 40 MG/4 ML VIAL IVP ONE (15:00)
[2017-01-03] MEDS ORDERED: LIDOCAINE 1% 300 MG/30 ML SDV MISC ONE ×2 (16:11→19:21)
[2017-01-03] MEDS ORDERED: ONDANSETRON 4 MG/2 ML VIAL IVP ONE (17:30)
[2017-01-03] MEDS ORDERED: MIDAZOLAM 2 MG/2 ML VIAL IVP ONE (17:30)
[2017-01-03] MEDS ORDERED: SUCCINYLCHOLINE CHLORIDE*ANESTHESIA ONLY*200 MG/10 ML SYR IVP ONE (17:30)
[2017-01-03] MEDS: fentaNYL/NACL 100 ML IV SCH ×2 (17:40→23:39)
[2017-01-03] MEDS: PROPOFOL/EMULSION 100 ML IV SCH (17:41)
[2017-01-03] MEDS ORDERED: ACETAMINOPHEN 650 MG SUPP PR ONE (18:12)
[2017-01-03 18:18] LABS: BASE EXCESS -5.6 mEq/L (-2.5-2.5); BICARBONATE 19 mEq/L (22-26); MEASURED OXYGEN SATURATION 88 % (92-95); PCO2 39 mmHg (34-38); PO2 71 mmHg (65-75); TCO2 20 mEq/L (23-27)
[2017-01-03 18:19] LABS: ASSIST CONTROL YES; END TIDAL CO2 27; O2 CONCENTRATIION 100 % (0-100); P/F RATIO 71 RATIO; TOTAL RATE 32
[2017-01-03 18:19] LABS: CALCULATED OXYGEN SATURATION 88 % (92-95); O2 CONCENTRATIION 100 % (0-100)
--- NOTE | 2017-01-03 18:21 | PDPCPN ---
Palliative Care Progress Note Assessment/Plan: HPI: Adriana Anderson is a 51 yo female with metastatic lung cancer admitted to the hospital for nausea/vomiting 2/2 gastric outlet obstruction and pancreatitis. Follows with Dr Mckeon at [facility] undergoing treatment. S/p EGD x2 with intital improvement in obstruction. Clinically has worsened with likely ileus on scheduled reglan as well as TPN. Faby seen this afternoon. She was having severe resp distress with SOB and increasing need for oxygen. She was not able to answer many questions but was ok with intubation to help her breathing and distress. Spoke with her sister and updated her on possibility she may never improve. The family is coming into town tomorrow Am adn will discuss further. Assessment: Physical: - Pain: abdominal pain - dilaudid 1-2 mg PO Q4hr PRN - IV dilaudid PRN for severe acute pain - Nausea: worse again - with NG tube - zofran or compazine PRN - on scheduled reglan - constipation - at risk with opiates - senna and colace daily while on opiates Emotional/psychological: has a lot of support from friends and family Advanced Care Planning: Is patient decisional?: No Code Status: Full MD POA: Her sister Nilsa Espitia phone number [phone] is MDPOA. Plan: Updated her sister over the phone, she and her mother are coming into town tomorrow AM. Also updated her father and multiple friends today. Will have goals of care discussion with family and friends tomorrow. Subjective: unable to obtain due to resp distress Objective: Vital Signs Temp Pulse Resp BP Pulse Ox 36.3 C 151 H 37 H 151/103 H 99 01/03/17 08:05 01/03/17 18:00 01/03/17 18:00 01/03/17 18:00 01/03/17 18:00 Laboratory Results 01/03/17 05:00 01/03/17 05:00 01/02/17 01/03/17 01/04/17 05:59 05:59 05:59 Intake Total 2393 1563 1009 Output Total 1420 Balance 2393 1563 -411 PT 13.9 SEC (12.0-15.0) 01/02/17 04:30 INR 1.08 (0.83-1.16) 10/02/17 04:30 Physical Exam - Physical Exam General Appearance: alert, severe distress Respiratory: respiratory distress, accessory muscle use Skin: normal color, warm/dry Extremities: pedal edema Neuro/Psych: alert ICD10 Worksheet Patient Problems: Problems Problem Status Onset Abdominal pain Acute Palliative care encounter Acute Vomiting Acute Bone metastases Chronic Metastasis to kidney Chronic Metastatic cancer to brain Chronic Metastatic cancer to liver Chronic Metastatic lung cancer (metastasis from lung to other site) Chronic ~05/2015 - ICD10 Problem Qualifiers (1) Palliative care encounter
[2017-01-03] MEDS: ACETAMINOPHEN 650 MG SUPP PR PRN (19:14)
[2017-01-03] MEDS: VECURONIUM BROMIDE 50 MG in D5W 50 ML IV SCH (19:48)
[2017-01-03] MEDS: NOREPINEPHRINE/NS 500 ML IV SCH ×2 (20:00→23:38)
[2017-01-03] MEDS ORDERED: ALBUMIN 5% 500 ML BOTTLE IV ONE (20:32)
[2017-01-03] MEDS ORDERED: ALBUMIN 5% 500 ML IV ONE (20:41)
[2017-01-03] MEDS: TPN 1 EA BAG IV SCH (20:57)
[2017-01-03] MEDS: CHLORHEXIDINE GLUCONATE 15 ML UDL PO SCH (21:15)
[2017-01-03 21:18] VITALS: RESP 20
[2017-01-03] MEDS ORDERED: NS 1,000 ML IV ONE (21:43)
[2017-01-03] MEDS ORDERED: NS 1,000 ML IV SCH (21:45)
[2017-01-03] MEDS: FAMOTIDINE 20 MG/NACL 50 ML IV SCH (21:58)
[2017-01-03] MEDS: ALBUTEROL 200 PUFFS/18 GM MDI IH SCH (23:59)
[2017-01-04] MEDS: NOREPINEPHRINE/NS 500 ML IV SCH ×3 (03:00→16:30)
[2017-01-04] MEDS: VECURONIUM BROMIDE 50 MG in D5W 50 ML IV SCH (03:24)
--- NOTE | 2017-01-04 03:47 | GCON ---
[f rep st] CONSULTATION QUALITY ASSURANCE CONSULTATION REASON FOR ADMISSION: To the intensive care unit, acute respiratory failure. HISTORY OF PRESENT ILLNESS: The patient is a 51-year-old white female with a past medical history of metastatic lung cancer that was diagnosed in May 2015. Apparently, it has metastasized to the pancreas and kidney. She was initially admitted to the hospital on 12/15/2016 for bloody emesis. Ov er the course of her hospitalization, she did poorly. She has struggled over the last several days w ith increasing breathlessness. On 01/03/2017, she had acute respiratory failure requiring transfer t o the intensive care unit where she was subsequently intubated and placed on mechanical ventilation. All history is gleaned from the medical record. PAST MEDICAL HISTORY: 1. Stage IV metastatic lung cancer with metastases to liver, brain, kidney. 2. Upper GI Lorie-Olsen tear. 3. Pancreatitis. ALLERGIES: No known allergies to medications. SOCIAL HISTORY: No history of tobacco use. No history of alcohol use. She resides in [place]. She is single without children. PHYSICAL EXAMINATION: VITAL SIGNS: Blood pressure is 133/99, pulse is 142, respirations 45, oxygen saturation is 92% on 11 L OxyMask. GENERAL: She is a mildly overweight 51-year-old white female, wh o is in respiratory extremis. HEENT: Eyes are PERRL, EOMI. Throat shows no erythema or tonsillar h ypertrophy. NECK: Supple with no cervical adenopathy. HEART: Tachycardic, but regular rate and rh ythm. LUNGS: Showed diminished breath sounds on the right posteriorly. There are scattered rhonchi . ABDOMEN: Distended. Bowel sounds are diminished. EXTREMITIES: Show no clubbing, cyanosis, or e jamal. LABORATORY DATA: White count is 20,000, hemoglobin of 10, hematocrit 32, platelet count is 241. Sod ium 139, potassium 4.0, chloride 107, CO2 is 20, BUN is 17, creatinine 0.6, glucose is 108. IMPRESSION: 1. Metastatic lung cancer. 2. Acute respiratory failure. 3. Pancreatitis. 4. Small bowel obstruction. RECOMMENDATIONS: 1. Will intubate patient as soon as possible to anticipate fiberoptic bronchoscopy as soon as possib le. 2. Adequate sedation. 3. DVT and PE prophylaxis. 4. Stress ulcer prophylaxis. 5. We will start an extensive conversation with the patient's family. /[id number]/MODL
[2017-01-04] MEDS: ALBUTEROL 200 PUFFS/18 GM MDI IH SCH ×4 (04:21→17:06)
--- NOTE | 2017-01-04 04:38 | GPN ---
[f rep st] PROCEDURE NOTE PROCEDURE: Intubation. INDICATION: Respiratory failure. ANESTHESIA GIVEN: She received Versed 4 mg and succinylcholine 60 mg. DESCRIPTION OF PROCEDURE: The procedure was performed in the intensive care unit with continuous pul se ox, EKG and blood pressure monitoring. Via GlideScope, attempts were made to intubate the patient, however, she vomited during the procedure. This required extensive suctioning and subsequently hook ing up her NG tube to suction. With some difficulty, patient was subsequently intubated with a #7.5 endotracheal tube and taped in at 24 cm to the lip. The patient tolerated the procedure well. Compl ication was again vomiting with likely aspiration and short bouts of hypoxemia. Portable chest x-ray was called for. /[id number]/MODL
--- NOTE | 2017-01-04 04:42 | GPN ---
[f rep st] PROCEDURE NOTE PROCEDURE: Fiberoptic bronchoscopy. INDICATION: Aspiration, lung mass, respiratory failure. ANESTHESIA GIVEN: She is still on sedation from intubation. DESCRIPTION OF PROCEDURE: The bronchoscope was then entered through a #7.5 endotracheal tube. Dista l trachea and raphael showed excessive amounts of vomitus that was therapeutically aspirated. Broncho scope entered in the left lung. Left upper lobe, lingula, left lower lobe, including subsegments wer e subsequently visualized, showed no endobronchial lesions and normal-appearing mucosa. Bronchoscope entered in the right lung. Right upper lobe and right bronchus intermedius showed copious amounts o f vomitus that was subsequently therapeutically aspirated. However, there was significant external c ompression from tumor of the right middle lobe and the right lower lobe, was unable to pass bronchosc ope past this obstruction. Bronchus was then removed. Patient tolerated the procedure well. There were no apparent complications. Portable chest x-ray has been called for. /[id number]/MODL
[2017-01-04 05:40] LABS: ABSOLUTE NRBC COUNT 0.15 10^3/uL (0-0.01); ATYPICAL LYMPHOCYTE FLAG 0 (0-99); FRAGMENT RBC FLAG 20 (0-99); HEMATOCRIT 32.9 % (38.0-47.0); HEMOGLOBIN 10.2 g/dL (12.6-16.3); LIPEMIA HEMOLYSIS FLAG 80 (0-99); MEAN CELL HEMOGLOBIN 27.9 pg (27.9-34.1); MEAN CELL VOLUME 89.9 fL (81.5-99.8); NRBC-AUTO% 0.4 % (0.0-0.2); PLATELET CLUMPS FLAG 0 (0-99); PLATELET COUNT 174 10^3/uL (150-400); RED BLOOD CELL COUNT 3.66 10^6/uL (4.18-5.33)
[2017-01-04 05:46] LABS: ADD DIFF? YES; ADD MORPH? NO; ADD SCAN? NO; LEFT SHIFT FLG 300 (0-99); RED CELL DISTRIBUTION WIDTH 20.1 % (11.5-15.2)
[2017-01-04 05:52] LABS: ANION GAP 12 mEq/L (8-16); CALCIUM 7.3 mg/dL (8.5-10.4); CARBON DIOXIDE 19 mEq/l (22-31); CHLORIDE 108 mEq/L (97-110); CREATININE 1.1 mg/dL (0.6-1.0); GLOMERULAR FILTRATION RATE 53; GLUCOSE 180 mg/dL (70-100); MAGNESIUM 1.7 mg/dL (1.6-2.3); POTASSIUM 4.7 mEq/L (3.5-5.2); SODIUM 139 mEq/L (134-144)
[2017-01-04 07:13] LABS: ELLIPTOCYTES 1+; POLYCHROMASIA 1+
[2017-01-04] MEDS: METOCLOPRAMIDE 10 MG TAB PO SCH ×3 (07:13→17:06)
[2017-01-04] MEDS: fentaNYL/NACL 100 ML IV SCH ×2 (07:32→16:30)
--- NOTE | 2017-01-04 08:47 | PDINTPN ---
Lan Analyst Progress Note Assessment/Plan: Assessment/plan: * Acute respiratory failure-on pressure control ventilation and high amounts of peep. Unlikely to be able to extubate * Vomitus with acute aspiration * Metastatic lung cancer-bronchoscopy revealed near complete occlusion of right middle lobe right lower lobe segments. * Sedation-currently paralyzed * Prognosis-grim Patient's family to arrive today, anticipate long discussion with family regarding poor prognosis. Likely withdrawal of support. Subjective: Sedated and paralyzed. Objective: Vital Signs Temp Pulse Resp BP Pulse Ox 37.4 C 123 H 20 110/76 95 01/04/17 08:00 01/04/17 08:00 01/04/17 08:00 01/04/17 08:00 01/04/17 08:00 Laboratory Results 01/04/17 05:12 01/04/17 05:12 01/03/17 01/04/17 01/05/17 05:59 05:59 05:59 Intake Total 1563 6656 Output Total 2110 75 Balance 1563 4546 -75 PT 13.9 SEC (12.0-15.0) 01/02/17 04:30 INR 1.08 (0.83-1.16) 01/02/17 04:30 Physical Exam - Physical Exam General Appearance: other (Sedated and paralyzed), No alert EENT: PERRL/EOMI, ET tube Neck: non-tender, full range of motion, supple, normal inspection Respiratory: crackles (Right base), No respiratory distress, No wheezing Cardiac/Chest: normal peripheral pulses, regular rate, rhythm, tachycardia, systolic murmur Abdomen: normal bowel sounds, non-tender, soft Pelvic Exam: deferred Rectal: deferred Skin: normal color, warm/dry Extremities: normal inspection Neuro/Psych: No alert ICD10 Worksheet Patient Problems: Problems Problem Status Onset Abdominal pain Acute Palliative care encounter Acute Vomiting Acute Bone metastases Chronic Metastasis to kidney Chronic Metastatic cancer to brain Chronic Metastatic cancer to liver Chronic Metastatic lung cancer (metastasis from lung to other site) Chronic ~05/2015
[2017-01-04] MEDS: PANTOPRAZOLE SODIUM 40 MG TAB PO SCH (09:14)
[2017-01-04] MEDS: SENNOSIDES/DOCUSATE SODIUM TAB PO SCH (09:15)
[2017-01-04] MEDS: CHLORHEXIDINE GLUCONATE 15 ML UDL PO SCH (09:20)
[2017-01-04] MEDS: ENOXAPARIN 40 MG/0.4 ML SYR SC SCH (09:20)
[2017-01-04] MEDS: INSULIN REGULAR, HUMAN 100 UNIT/1 ML VIAL LOW SC SCH ×2 (09:20→11:47)
[2017-01-04] MEDS: FAMOTIDINE 20 MG/NACL 50 ML IV SCH (09:21)
[2017-01-04 10:05] LABS: PLATELET ESTIMATE ADEQUATE (ADEQ)
[2017-01-04] MEDS: ACETAMINOPHEN 650 MG SUPP PR PRN (10:30)
[2017-01-04] MEDS: PROPOFOL/EMULSION 100 ML IV SCH (12:10)
[2017-01-04] MEDS: ERTAPENEM 1 GM in NS 100 ML IV SCH (12:10)
--- NOTE | 2017-01-04 13:28 | SOAPPROG ---
SOAP Progress Note Assessment/Plan: Assessment: 1.) NSCLC- with brain/liver/skeletal mets on palliative tx. plan from here. She has had four cycles of Docetaxel + Ramicurumab. 2.) Respiratory failure on high flow Oxygen, high PEEP, lung consolidation with an underlying fatal outcome imminently expected, with family understanding of situation , having arrived over past 18 hours to be with Faby at the end of life. Plan: Appreciate ICU team management. Anticipate withdrawal of care in next 24 hours that will be rapidly fatal. Will inform her primary Oncologist, Dr. Mckeon of the situation and expected outcome. Will recheck later today. 01/04/17 13:28 Subjective: ICU status/ intubated/sedated/ high PEEP, 90% FIO2 noted. Objective: Parents, siblings, and close friends at bedside and aware of imminent demise of Faby given gravity of situation. They are appropriately grieving and appreciative of the care she has recieved over the past long period of time with her lung cancer. Apparently, Faby's mother is the spokesperson. Vital Signs Temp Pulse Resp BP Pulse Ox 37.7 C 126 H 20 102/65 93 01/04/17 12:00 01/04/17 13:00 01/04/17 13:00 01/04/17 13:00 01/04/17 13:00 Laboratory Results 01/04/17 05:12 01/04/17 05:12 01/03/17 01/04/17 01/05/17 05:59 05:59 05:59 Intake Total 1563 6656 Output Total 2110 135 Balance 1563 4546 -135 PT 13.9 SEC (12.0-15.0) 01/02/17 04:30 INR 1.08 (0.83-1.16) 01/02/17 04:30 ICD10 Worksheet Patient Problems: Problems Problem Status Onset Abdominal pain Acute Palliative care encounter Acute Vomiting Acute Bone metastases Chronic Metastasis to kidney Chronic Metastatic cancer to brain Chronic Metastatic cancer to liver Chronic Metastatic lung cancer (metastasis from lung to other site) Chronic ~05/2015
[2017-01-04] MEDS: NS 1,000 ML IV SCH (16:30)
[2017-01-04] MEDS ORDERED: SCOPOLAMINE HYDROBROMIDE 1 MG/3 DAYS PATCH TD PRN (16:53)
[2017-01-04 16:55] VITALS: TEMP 100
[2017-01-04] MEDS ORDERED: LORazepam 2 MG/ML INJ IVP SCH (18:00)
--- NOTE | 2017-01-04 18:45 | HOSPPROG ---
Hospitalist Progress Note Assessment/Plan: 51 yo female with known Stage IV lung Ca metastatic to liver, brain, kidney; s/ p UGI bleed with carloz Colby tear; now with persistent gastric fluid retention and probably persistent pancreatitis 2/2 metastatic disease. Patient developed respiratory distress yesterday, was transferred to ICU, intubated with probable aspiration pneumonia, paralyzed, sedated. This am she is paralyzed, sedated, tachycardia, continues with respiratory failure -acute respiratory failure; will be unable to extubate. Aspiration pneumonia -metastatic lung cancer, Plan: -comfort measures when family is available -case discussed with Intensive care medicine team Subjective: sedated and intubated Objective: Vital Signs Temp Pulse Resp BP Pulse Ox 37.8 C 125 H 20 103/69 93 01/04/17 18:00 01/04/17 18:00 01/04/17 18:00 01/04/17 18:00 01/04/17 18:00 Laboratory Results 01/04/17 05:12 01/04/17 05:12 01/03/17 01/04/17 01/05/17 05:59 05:59 05:59 Intake Total 1563 6656 3300 Output Total 2110 720 Balance 1563 4546 2580 PT 13.9 SEC (12.0-15.0) 01/02/17 04:30 INR 1.08 (0.83-1.16) 01/02/17 04:30 - Time Spent With Patient Time Spent with Patient: greater than 35 minutes Time Spent with Patient: Greater than 35 minutes spent on this patients care, greater than 50% of time spent counseling, educating, and coordinating care regarding the above mentioned plan. - Pending Discharge Pending Discharge Within 24 Hours: Yes Pending Discharge Date: 01/05/17 Pending Discharge Time: 11:00 - Physical Exam Constitutional: other (acute ill, sedated, paralyzed on ventilator) Eyes: other (fixed pupils, no response) Ears, Nose, Mouth, Throat: other (intubated) Cardiovascular: regular rate and rhythym, tachycardia Respiratory: expiratory wheeze, inspiratory crackles, bronchial breath sounds, rhonchi Gastrointestinal: other (absent bowel sounds, nontender) Genitourinary: other (bentley) Skin: warm Musculoskeletal: other (paralyzed) ICD10 Worksheet Patient Problems: Problems Problem Status Onset Palliative care encounter Acute Metastasis to kidney Chronic Metastatic cancer to brain Chronic Metastatic cancer to liver Chronic Bone metastases Chronic Abdominal pain Acute Vomiting Acute Metastatic lung cancer (metastasis from lung to other site) Chronic ~05/2015
[2017-01-04 19:02] VITALS: BP 98/72; PULSE 126; O2SAT 92
--- NOTE | 2017-01-05 08:45 | PDDCSUM ---
Discharge Summary Discharge Summary: Summary Of note, patient was not seen prior to expiring, she the evening of 01/04 after withdrawal of support Dates of service: 12/14/16-01/04/17 Consultations:GI, oncology, pulmonary, palliative care Procedures performed: EGD x 2, PICC line placement, Brain MRI, abd MRI, abd ct x 2, chest/thorax cta, HIDA scan, upper gi w/sbft, endotracheal intubation and terminal extubation Hospital course by problem: Acute respiratory failure-multifactorial with underlying metastatic lung cancer with aspiration and possible aspiration pna as well as bilateral pleural effusions and compressive atelectasis. Per discussion with family, patient extubated and shortly thereafter * Vomitus with acute aspiration * Metastatic lung cancer-bronchoscopy revealed near complete occlusion of right middle lobe right lower lobe segments. * hematemesis: s/p EGD x 2, 2/2 MWT * GOO vs ileus--due to extensive metastatic disease * acute pancreatitis: resolved * post hemorrhagic anemia Patient with family at bedside, evening of 01/04 Again, this physician has never actually seen this patient as she prior to my assuming care
--- NOTE | 2017-01-05 16:37 | ASDISCHSUM ---
Discharge Information Plan Status:Hospice-Home Medically Cleared to Leave: Discharge Date:01/04/2017 09:47 PM CM D/C Disposition: ADT D/C Disposition: Projected Discharge Date:12/17/2016 11:00 AM Transportation at D/C: Discharge Delay Reason: Follow-Up Date:12/17/2016 11:00 AM Discharge Slot: Final Diagnosis:Lung cancer with mets nausea and pain Placement Information Referral Type:*Hospice Referral ID:[id number] Provider Name: Address 1: Phone Number: Address 2: Fax Number: City: Selection Factors: State: Patient Contact Information Contact Name:MARIA DE JESUS Relationship: Address:[address] City:[place] Phone: State/Zip Code:[place] [address] Email: Financial Information Financial Class:HMO and PPO Plans Primary Plan Desc:[facility] Primary Plan Number:[id number] Secondary Plan Desc: Secondary Plan Number: Assessment Information [facility] CM Progress Note CM Note CM Note Notes: Pt has been admitted with vomitiing. She was seen in the ED 12/10 for similar sx. Hx metstatic small cell lung CA diagnosed 09/2015 and completed a round of chemo 1 1/2 weeks ago. S/p EGD. CM will follow for any d/c needs. Date Signed: 12/14/2016 04:14 PM Electronically Signed By:GUERRERO Kramer [facility] CM Progress Note CM Note CM Note Notes: Met with pt for discharge needs and resources. Pt is a single mother of a 13 y/o daughter. She talked about needing help from her daughter and also wanting her to enjoy spending time with friends. Recommended the possibility of hiring pvt duty help for 2 hrs/day 3x/week. Put in a red lipstick request and gave pt a pvt duty list. Also discussed having a palliative agency follow pt for symptoms. She agreed it would be helpful. Dr Nixon put in order and referral faxed to [facility]. Eduin from [facility] met with pt at [facility] today. Pt's father is in town from [place] and was present at meeting. Pt agreed to sign on for palliative at [place]. Pt could also benefit from HC RN and will make choice. Pt's family is all in [place] but she has many local friends. She is having trouble keeping up with the phone calls and texts. Suggested she choose one friend who would be willing to be the point person. Pt welcomed suggestion and has a friend, Pearl, with whom she plans to discuss this. C/M will continue to follow. Date Signed: 12/17/2016 02:43 PM Electronically Signed By:Huma Huston LCSW [facility] CM Progress Note CM Note CM Note Notes: Dr. Nixon said that she wants patient to have an in house Palliative cosullt. It was noted that cruz had a Palliative consult with Eduin from [facility] but Dr. Nixon ordered for one to be done here today. Nick from Palliative here and will see patient this afternoon for the consult. C/M will continue to follow. Date Signed: 12/20/2016 01:16 PM Electronically Signed By:GUERRERO Corbett [facility] CM Progress Note CM Note CM Note Notes: Pt still not ready for DC. Met with pt's father Frantz and friend Maura who is the one with whom pt's 13 y/o dtr is currently living. Frantz and Maura expressed concerns about pt's will and the plan for who will have custody of pt's dtr when she dies. We discussed the fact that pt is not is not currently with her . Frantz and Maura felt that it would be important for someone to discuss this with pt. We decided that the [facility] palliative hospice social worker. would be best to discuss these sensitive issues with pt after DC because the hospice social worker would have continuity with the pt. Spoke with Shagufta at [facility] and provided her with the friend's, Maura's info ( Maura Vaughn at [phone]). Maura would like to be the point person with [facility]. C/M will continue to follow for other needs besides palliative care when pt DCs. Date Signed: 12/23/2016 04:48 PM Electronically Signed By:Huma Huston LCSW [facility] Progress Note CM Note CM Note Notes: Met with patient and father, here from [place], to discuss plans at discharge as well as other areas of concern. Patient spoke of her daughter Sarina and discussions pt has had with her considering her illness and plans for her daughter is she would . Faby said she had recently discussed with her daughter of her will as well as who she would live with. She said Sarina felt very relieved following their conversation. She said that Nena father recently completed treatment for his alcoholism and would like to have Sarina live with him which Sarina would prefer. She said they also talked about what the plan would be if Sophias father returned to drinking and Sarina understands that she would then go to the friends family she is currently with. They mother of the friend is a therapist and has also spoken with pts sister who lives in [place]. They plan to stay in contact so they can coordinate support for Sarina. She said she feels good she has been able to speak frankly with her daughter and hopes that has been the correct approach with her daughter. This S/W validated patients honesty and openess with daughter. Also discussed her decision to be followed by [facility]. She looks forward to additional information about what they will provide when she returns home. C/M will follow. Pharmacist Mere indicates that TPN may be discontinued today. Date Signed: 12/26/2016 12:25 PM Electronically Signed By:GUERRERO Corbett [facility] Progress Note CM Note CM Note Notes: Pt is off TPN. The d/c plan is still to go home with [facility]. Received call from Marychuy from [employer] - if pt does d/c home on TPN, she is covered 100%. Pt still not cleared for d/c and per RN, her condition has worsened. Date Signed: 12/28/2016 04:28 PM Electronically Signed By:GUERRERO Kramer [facility] Progress Note CM Note CM Note Notes: Pt had palliative meeting yesterday with father and friends present. Decision made at that time by pt to go home with [facility] who are currrently set up for palliative care at [place]. Today the Physical therapist worked with pt and suggested she may be a candidate for inpt rehab. PT said that pt was willing to try it. Met with pt and father to discuss this. Pt feels that a short imnpt rheab stay before she goes home might be good for her. Plan is for RN Danita to discuss with hospitalist tomorrow and he will out in [facility] if appropriate. C/M to follow. Date Signed: 12/31/2016 05:15 PM Electronically Signed By:Huma Huston LCSW [facility] Progress Note CM Note CM Note Notes: Palliative RN, Caitie, spoke with patient today and patient has decided that she would like to have [facility] at home. [facility] and they said that [facility] can be here at 3:00pm on Monday01/03/2017 to meet with patient and her mother and sister who will arrive tomorrow morning. Inpatient rehab called and said that Patient is not appropriate for them at this time. Patient to be transfused today. Case Management will follow. Date Signed: 01/02/2017 02:40 PM Electronically Signed By:GUERRERO Corbett [facility] CM Progress Note CM Note CM Note Notes: Discussed with nurse that patient had conversation with other C/M on to form coverer from Palliative to hospice with [facility]. Family had wanted to wait to have hospice meeting until mother and sister arrived on Monday01/05/17. [facility] scheduled to meet with them on . at 3:00pm. Case management will continue to follow. Date Signed: 01/03/2017 10:52 AM Electronically Signed By:GUERRERO Corbett Intervention Information
== END 2017-01-04 21:47 | disposition expired | DRG 374 ==
LOC: F1N 10:18 → OBSVTOIN 12-15 12:35 → F2N 01-03 16:05
PROVIDERS: ADMIT Family Medicine; ATTEND Internal Medicine
PROC: 0DB68ZX Excision of Stomach, Via Natural or Artificial Opening Endoscopic, Diagnostic (ICD-10-PCS; 2016-12-14)
PROC: 0D9670Z Drainage of Stomach with Drainage Device, Via Natural or Artificial Opening (ICD-10-PCS; principal; 2016-12-16)
PROC: 3E0436Z Introduction of Nutritional Substance into Central Vein, Percutaneous Approach (ICD-10-PCS; 2016-12-18)
PROC: 02HV33Z Insertion of Infusion Device into Superior Vena Cava, Percutaneous Approach (ICD-10-PCS; 2016-12-18)
PROC: 0DJ08ZZ Inspection of Upper Intestinal Tract, Via Natural or Artificial Opening Endoscopic (ICD-10-PCS; 2016-12-20)
PROC: 0D9670Z Drainage of Stomach with Drainage Device, Via Natural or Artificial Opening (ICD-10-PCS; 2016-12-28)
PROC: 5A09457 Assistance with Respiratory Ventilation, 24-96 Consecutive Hours, Continuous Positive Airway Pressure (ICD-10-PCS; 2017-01-03)
PROC: 0BH17EZ Insertion of Endotracheal Airway into Trachea, Via Natural or Artificial Opening (ICD-10-PCS; 2017-01-03)
PROC: 0B938ZZ Drainage of Right Main Bronchus, Via Natural or Artificial Opening Endoscopic (ICD-10-PCS; 2017-01-03)
PROC: 0BJL8ZZ Inspection of Left Lung, Via Natural or Artificial Opening Endoscopic (ICD-10-PCS; 2017-01-03)
PROC: 0B948ZZ Drainage of Right Upper Lobe Bronchus, Via Natural or Artificial Opening Endoscopic (ICD-10-PCS; 2017-01-03)
DX: C78.89 Secondary malignant neoplasm of other digestive organs (principal); K85.90 Acute pancreatitis without necrosis or infection, unspecified; K56.7 Ileus, unspecified; J96.01 Acute respiratory failure with hypoxia; J69.0 Pneumonitis due to inhalation of food and vomit; C34.2 Malignant neoplasm of middle lobe, bronchus or lung; C34.31 Malignant neoplasm of lower lobe, right bronchus or lung; C79.31 Secondary malignant neoplasm of brain; C78.7 Secondary malignant neoplasm of liver and intrahepatic bile duct; C79.00 Secondary malignant neoplasm of unspecified kidney and renal pelvis; C79.51 Secondary malignant neoplasm of bone; K22.6 Gastro-esophageal laceration-hemorrhage syndrome; D62 Acute posthemorrhagic anemia; K86.1 Other chronic pancreatitis; K25.9 Gastric ulcer, unspecified as acute or chronic, without hemorrhage or perforation; D68.4 Acquired coagulation factor deficiency; G47.50 Parasomnia, unspecified; K59.00 Constipation, unspecified; R44.3 Hallucinations, unspecified; K86.2 Cyst of pancreas; R10.2 Pelvic and perineal pain; R18.8 Other ascites; R07.9 Chest pain, unspecified; J90 Pleural effusion, not elsewhere classified; J98.11 Atelectasis
CPT/HCPCS: 96374; 97110-GP; 97112-GP; 97116-GP; 97161-GP; 97165-GO; 97530-GO; 97530-GP; 97535-GO; A9537; A9585; C1751; G0008; G0378; J0171; J0330; J1170; J1335; J1650; J1815; J1940; J2060; J2185; J2250; J2405; J2550; J2704; J2765; J2997; J3010; J3430; P9016; P9021; P9041; Q9961; Q9967